=== PATIENT | female | born 1935 | race Caucasian/White ===

== ENCOUNTER → 2020-06-17 17:55 | Outpatient (CLI) | payer MEDICARE, OTHER, SELFPAY | PROVIDERS: PCP Family Medicine; Referring Provider Nurse Practitioner Family; Visit Provider Nurse Practitioner Family | DX: Z20.828 Contact with and (suspected) exposure to other viral communicable diseases (principal) | CPT/HCPCS: 87635; 94799; U0003 ==

== ENCOUNTER 2021-09-25 21:11 | Emergency (ER) | payer MEDICARE, OTHER, SELFPAY ==
[2021-09-25 21:12] VITALS: BP 158/67; PULSE 96; RESP 14; TEMP 35.1; O2SAT 100; BMI 22.4
[2021-09-25] MEDS: Ondansetron 4 MG/2 ML Vial IV (22:04)
[2021-09-25] MEDS: 0.9% Normal Saline 1,000 ML 1000 ML IV (22:04)
[2021-09-25 22:16] LABS: Absolute Lymphocyte Count 1.36 X10^3/uL (0.83-4.51); Absolute Neutrophil Count 6.2 X10^3/uL (2.0-7.7); Basophil# 0.03 X10^3/uL; Basophil% 0.4 % (0-1); Eosinophil# 0.07 X10^3/uL; Eosinophils% 0.9 % (0-5); Hematocrit 38.2 % (37-47); Hemoglobin 12.9 g/dL (12.0-15.0); Lymphocyte # 1.36 X10^3/ul (0.83-4.51); Lymphocyte % 16.7 % (19-41); Mean Corp Hgb Conc 33.8 g/dL (32-36); Mean Corpuscular Hgb 30.9 pg (27.0-32.0); Mean Corpuscular Volume 91.4 fL (81-99); Monocyte# 0.51 X10^3/uL; Monocyte% 6.3 % (0-10); NRBC Flagged by Analyzer 0 % (0-5); Neutrophil # 6.15 X10^3/uL (2.7-7.7); Neutrophil % 75.3 % (47-70); Platelet Count 220 K/mm3 (150-450); RBC Distribution Width CV 13.4 % (11.6-14.6); RBC Distribution Width SD 45.1 fl (35.1-43.9); Red Blood Count 4.18 M/mm3 (4.2-5.4); White Blood Count 8.2 K/mm3 (4.4-11.0)
[2021-09-25 22:29] LABS: Partial Thromboplast Time 26.6 Seconds (24.1-36.2); Prothrombin Time (Protime)PT. 12.4 SECONDS (11.7-14.9)
[2021-09-25] MEDS: proMETHazine 25 MG/ML Syringe 6.25 MG IM (22:30)
[2021-09-25 22:38] LABS: ALB/GLOB Ratio 0.9 RATIO (0.9-2.4); AST(SGOT) 24 U/L (15-37); Alanine Aminotransfer ALT/SGPT 22 U/L (13-56); Albumin, Serum 3.6 g/dL (3.2-5.0); Alkaline Phosphatase 61 U/L (45-117); Anion Gap 8 (5-15); BUN 24 mg/dL (7-18); BUN/Creat Ratio 19.8 RATIO (10-20); Calcium,Total 9.1 mg/dL (8.5-10.1); Chloride 101 mmol/L (98-107); Creatinine, Serum 1.21 mg/dL (0.55-1.02); EST Glomerular Filtration Rate 45 mL/min (>60); Est Glom Filt Rate - Afr Amer 55 mL/min (>60); Estimated Creatinine Clearance 27.86 ml/min; Globulin 4.2 g/dL (2.2-4.2); Glucose 221 mg/dL (74-106); Lipase 60 U/L (73-393); Potassium 2.8 mmol/L (3.5-5.1); Protein, Total 7.8 g/dL (6.4-8.2); Sodium Level 136 mmol/L (136-145)
[2021-09-25 22:39] LABS: Lactic Acid 1.2 mmol/L (0.4-1.9)
[2021-09-25 23:23] LABS: Mucous, Urine 0 SEEN /hpf (<or=2+); Red Blood Cells-Urine 0 SEEN /hpf (0-5); Squamous Epithelial Cells - UA 0 SEEN /hpf (5-10); White Blood Cells 0 SEEN /hpf (0-5)
[2021-09-25 23:26] LABS: Color, Urine Yellow (Yellow); Glucose, Dipstick 100 mg/dl (Normal); Ketone-Dipstick 15 mg/dl (Negative); Leukocyte Esterase-Dipstick Negative /ul (Negative); Nitrite-Dipstick Negative (Negative); Occult Blood-Urine Negative /ul (Negative); Protein-Dipstick Negative (Negative); Urine Bilirubin Dipstick Negative (Negative); Urine Clarity Clear (Clear); Urine Urobilinogen Normal (Normal)
--- NOTE | 2021-09-25 23:41 | EX.ED.DYSGE1 ---
HPI History of Present Illness Chief Complaint: Nausea/Vomiting Informant: patient and family Onset/Context/Timing Onset: Hours (2) Context: Sudden Onset Timing: Continuous Quality: Nausea, lightheadedness Location: Generalized Worsened by: Nothing Relieved by: Nothing Narrative Narrative: Patient presents with nausea and vomiting that began approximately 2 hours prior to arrival. Patient states she ate some [employer] then became nauseated. Patient states she feels lightheaded. Patient states she feels weak all over. Patient states this began rather suddenly. Patient denies any hematemesis or coffee-ground emesis. Patient admits to some diarrhea. Patient denies any melena or hematochezia. Patient denies any dysuria or hematuria. Patient states nothing makes her nausea better and nothing makes it worse. PFSH PFS Medical History Diabetes Hypertension Hypothyroidism Kidney disease Home Medications calcium carbonate 500 mg PO DAILY 10/24/16 [History Last Taken Unknown] glimepiride 0.5 mg PO DAILY 10/24/16 [History Last Taken Unknown] levothyroxine 25 mcg PO DAILY 10/24/16 [History Last Taken Unknown] losartan 50 mg PO DAILY 10/24/16 [History Last Taken Unknown] ondansetron 4 mg PO Q8H PRN PRN #10 tab 10/24/16 [Rx Last Taken Unknown] simvastatin 20 mg PO QHS 10/24/16 [History Last Taken Unknown] alendronate 70 mg PO QWEEK 09/25/21 [History Last Taken Unknown] amlodipine 5 mg PO DAILY 09/25/21 [History Last Taken Unknown] hydrochlorothiazide 12.5 mg PO/SL DAILY 09/25/21 [History Last Taken Unknown] potassium mg PO 09/25/21 [History Last Taken Unknown] metoclopramide HCl 10 mg PO 4X/DAY PRN #20 tab 09/26/21 [Rx Last Taken Unknown] promethazine [Promethegan] 25 mg RECTAL Q6H PRN PRN #6 suppos. 09/26/21 [Rx Last Taken Unknown] Allergy/AdvReac Type Severity Reaction Status Date / Time codeine AdvReac Nausea/Vom/ Verified 09/25/21 21:19 Diarrhea Social History Smoking Status: Never smoker ROS ROS ED Constitutional Constitutional ED: Denies chills or fever(s) Eyes Eyes: Denies blurry vision or change in vision ENT ENT ED: Denies rhinorrhea or sore throat Cardiovascular Cardiovascular: Denies chest pain or palpitations Respiratory/Chest Respiratory/Chest: Denies cough or dyspnea Gastrointestinal Gastrointestinal: Reports diarrhea, nausea and vomiting; Denies melena Genitourinary Genitourinary ED: Denies dysuria or hematuria Musculoskeletal Musculoskeletal: Denies back pain or neck pain Integumentary Denies abscess or rash Neurologic Neurologic: Reports weakness; Denies headache(s) Allergic/Immunologic Allergic/Immunologic ED: Denies mouth swelling or urticaria EXAM Physical Exam Const Vital Signs: 09/25/21 21:12 09/26/21 00:44 Temperature 95.2 F L Temperature Source Temporal Pulse Rate 96 82 Respiratory Rate 14 17 Blood Pressure 158/67 H 138/66 H Blood Pressure Mean 97 90 Pulse Ox 100 96 Oxygen Delivery Method Room Air Positive well nourished and well developed General Appearance ED: well developed HEENT Reports moist mucous membranes Neck supple and no JVD Resp normal respiratory effort and clear to auscultation bilaterally Cardio regular rate, regular rhythm and no murmurs GI normal to inspection, nondistended, normoactive bowel sounds Palpation: soft and tender epigastric, LLQ, RLQ, LUQ, RUQ, periumbilical and suprapubic; Negative for guarding or rebound tenderness present Extremity normal to inspection General Extremety ED: Negative for edema or tenderness General Extremity: Negative for edema Neuro oriented x3, CN's II-XII intact bilaterally and no sensory deficits noted Sensorium / Orientation: alert Motor Exam: strength 5/5 throughout Psych mental status grossly normal Skin no rashes or lesions noted MDM MDM MDM Narrative Medical decision making narrative: Patient was given IV fluids and Zofran initially. Patient states she was still nauseated. Patient was given a dose of Phenergan. CBC and comprehensive metabolic profile were obtained and were essentially within normal limits with the exception of a hypokalemia of 2.8 and a glucose of 221. PT with INR and PTT were normal. Lactate was normal. Urinalysis does not show any evidence of urinary tract infection. Patient was feeling somewhat better on reevaluation but still slightly nauseated. Because of this, I do not feel she will tolerate oral potassium. Patient was given a dose of Reglan and Benadryl. Patient was given a prescription for Phenergan suppositories and a prescription for Reglan. Patient was instructed to follow-up with her primary care physician in 2 to 3 days for reevaluation. Patient understood and was agreeable with the plan. All questions were answered. Lab Data Attestation: I reviewed the patient's lab results. Labs: Laboratory Results - last 24 hr 09/25/21 09/25/21 09/25/21 22:00 22:00 22:00 WBC 8.2 RBC 4.18 L Hgb 12.9 Hct 38.2 MCV 91.4 MCH 30.9 MCHC 33.8 RDW Std Deviation 45.1 H RDW Coeff of Po 13.4 Plt Count 220 MPV 10.0 Immature Gran % (Auto) 0.400 Neut % (Auto) 75.3 H Lymph % (Auto) 16.7 L [place] % (Auto) 6.3 Eos % (Auto) 0.9 Baso % (Auto) 0.4 Absolute Neuts (auto) 6.2 Absolute Lymphs (auto) 1.36 Nucleated RBC % 0 PT 12.4 INR 1.0 APTT 26.6 Sodium 136 Potassium 2.8 L Chloride 101 Carbon Dioxide 27.0 Anion Gap 8 BUN 24 H Creatinine 1.21 H Estim Creat Clear Calc 27.86 Est GFR (MDRD) Af Amer 55 L Est GFR (MDRD) Non-Af 45 L BUN/Creatinine Ratio 19.8 Glucose 221 H Lactic Acid Calcium 9.1 Total Bilirubin 0.50 AST 24 ALT 22 Alkaline Phosphatase 61 Total Protein 7.8 Albumin 3.6 Globulin 4.2 Albumin/Globulin Ratio 0.9 Lipase 60 L Urine Color Urine Clarity Urine pH Ur Specific [place] Urine Protein Urine Glucose (UA) Urine Ketones Urine Occult Blood Urine Nitrite Urine Bilirubin Urine Urobilinogen Ur Leukocyte Esterase Urine RBC Urine WBC Ur Squamous Epith Cells Urine Bacteria Urine Mucus 09/25/21 09/25/21 22:00 23:17 WBC RBC Hgb Hct MCV MCH MCHC RDW Std Deviation RDW Coeff of Po Plt Count MPV Immature Gran % (Auto) Neut % (Auto) Lymph % (Auto) [place] % (Auto) Eos % (Auto) Baso % (Auto) Absolute Neuts (auto) Absolute Lymphs (auto) Nucleated RBC % PT INR APTT Sodium Potassium Chloride Carbon Dioxide Anion Gap BUN Creatinine Estim Creat Clear Calc Est GFR (MDRD) Af Amer Est GFR (MDRD) Non-Af BUN/Creatinine Ratio Glucose Lactic Acid 1.2 Calcium Total Bilirubin AST ALT Alkaline Phosphatase Total Protein Albumin Globulin Albumin/Globulin Ratio Lipase Urine Color Yellow Urine Clarity Clear Urine pH 7.0 Ur Specific [place] 1.010 Urine Protein Negative Urine Glucose (UA) 100 H Urine Ketones 15 H Urine Occult Blood Negative Urine Nitrite Negative Urine Bilirubin Negative Urine Urobilinogen Normal Ur Leukocyte Esterase Negative Urine RBC 0 SEEN Urine WBC 0 SEEN Ur Squamous Epith Cells 0 SEEN Urine Bacteria RARE Urine Mucus 0 SEEN Discharge Plan Triage Chief Complaint: Nausea/Vomiting ED Provider: Jersey Otto Dx/Rx/DC Orders Clinical Impression: Nausea & vomiting Instructions: ED Vomiting (Adult) Prescriptions: New promethazine [Promethegan] 25 MG suppository 25 mg RECTAL Q6H PRN PRN (Reason: Nausea) Qty: 6 RF: 0 metoclopramide HCl [metoclopramide HCl] 10 MG tablet 10 mg PO 4X/DAY PRN (Reason: Headache) Qty: 20 RF: 0 No Action losartan 50 MG tablet 50 mg PO DAILY RF: 0 levothyroxine 25 MCG tablet 25 mcg PO DAILY RF: 0 glimepiride 1 MG tablet 0.5 mg PO DAILY RF: 0 simvastatin 20 MG tablet 20 mg PO QHS RF: 0 calcium carbonate 500 MG tablet,chewable 500 mg PO DAILY RF: 0 ondansetron 4 MG tablet 4 mg PO Q8H PRN PRN (Reason: Nausea) Qty: 10 RF: 0 alendronate 70 mg Tablet 70 mg PO QWEEK RF: 0 amlodipine 5 mg Tablet 5 mg PO DAILY RF: 0 potassium 20 mg Tablet,Chewable PO RF: 0 hydrochlorothiazide 12.5 mg PO/SL DAILY RF: 0 Primary Care Provider: Earl Obrien Referrals: Earl Obrien MD [Primary Care Provider] - 2 Days Disposition Disposition: Home, Self Care
[2021-09-25 23:55] LABS: Bacteria RARE /hpf (None Seen)
[2021-09-26 00:44] VITALS: BP 138/66; PULSE 82; RESP 17; O2SAT 96
[2021-09-26] MEDS: Metoclopramide 10 MG/2 ML Vial IV (01:27)
[2021-09-26] MEDS: DiphenhydrAMINE 50 MG/ML Syringe 25 MG IV (01:27)
== END 2021-09-26 01:44 | disposition home or self-care (01) ==
PROVIDERS: Emergency Provider Emergency Medicine; PCP Family Medicine
DX: R11.2 Nausea with vomiting, unspecified (principal); R19.7 Diarrhea, unspecified; R42 Dizziness and giddiness; E11.9 Type 2 diabetes mellitus without complications; I10 Essential (primary) hypertension; E03.9 Hypothyroidism, unspecified
CPT/HCPCS: 80053; 81001; 83605; 83690; 85025; 85610; 85730; 96361; 96372; 96374; 96375; 99285; J7030; A4216; J2405

== ENCOUNTER → 2021-10-06 13:08 | Outpatient (CLI) | payer MEDICARE, OTHER, SELFPAY ==
--- NOTE | 2021-10-06 13:20 | BI_ITS ---
MAMMOGRAPHY - BILATERAL SCREENING REASON FOR EXAM: Female, 85 years old. Routine annual screening examination. PERTINENT HISTORY: Sister with breast cancer. Grandmother with breast cancer. TECHNIQUE: Digital bilateral breast carol (3D mammographic acquisition) in the CC and MLO projections. 2-D mediolateral oblique (MLO) and craniocaudad (CC) views of both breasts were obtained. CAD: Full Field Digital Mammography with Computer Added Detection was performed. COMPARISON: Comparison is made with prior examination dated 12/11/2019. FINDINGS: Breast Composition: The breasts are almost entirely fatty. There are no dominant masses or suspicious calcifications. Stable bilateral secretory calcifications. No other significant abnormalities are identified. There has been no significant change since the prior study. BI/SCRN MAMM (CAD)W/CAROL BILAT IMPRESSION: Stable bilateral screening mammogram. Yearly follow-up mammogram recommended. (A) ASSESSMENT CATEGORY: BIRADS Category 2: Benign. A letter regarding these results will be sent to the patient by the facility within 30 days. Approximately 10% of breast cancers are not detected by mammography. A normal mammogram should not delay biopsy of a clinically suspicious abnormality. [id number] Electronically Signed: Giovanny Ritter MD at 14:18 EST , Service support ,
== END ==
PROVIDERS: PCP Family Medicine; Referring Provider Family Medicine; Visit Provider Family Medicine
DX: Z12.31 Encounter for screening mammogram for malignant neoplasm of breast (principal)
CPT/HCPCS: 77063; 77067

== ENCOUNTER → 2022-10-17 | Outpatient (CLI) | payer MEDICARE, OTHER, SELFPAY ==
--- NOTE | 2022-10-17 15:13 | BI_ITS ---
MAMMOGRAPHY - BILATERAL SCREENING REASON FOR EXAM: Female, 86 years old. Routine annual screening examination. PERTINENT HISTORY: Sister with breast cancer. Grandmother with breast cancer. TECHNIQUE: Digital bilateral breast carol (3D mammographic acquisition) in the CC and MLO projections. 2-D mediolateral oblique (MLO) and craniocaudad (CC) views of both breasts were obtained. CAD: Full Field Digital Mammography with Computer Added Detection was performed. COMPARISON: Comparison is made with prior study 10/06/2021. FINDINGS: Breast Composition: The breasts are almost entirely fatty. There are no dominant masses or suspicious calcifications. Stable bilateral secretory calcifications. No other significant abnormalities are identified. There has been no significant change since the prior study. BI/SCRN MAMM (CAD)W/CAROL BILAT IMPRESSION: Stable bilateral screening mammogram. Yearly follow-up mammogram recommended. (A) ASSESSMENT CATEGORY: BIRADS Category 2: Benign. A letter regarding these results will be sent to the patient by the facility within 30 days. Approximately 10% of breast cancers are not detected by mammography. A normal mammogram should not delay biopsy of a clinically suspicious abnormality. [id number] Electronically Signed: Giovanny Ritter MD at 8:03 EST ,
== END | disposition home or self-care (01) ==
LOC: OPBI 15:11
PROVIDERS: PCP Family Medicine; Referring Provider Family Medicine; Visit Provider Family Medicine
DX: Z12.31 Encounter for screening mammogram for malignant neoplasm of breast (principal); Z80.3 Family history of malignant neoplasm of breast
CPT/HCPCS: 77063; 77067

== ENCOUNTER → 2023-10-18 | Outpatient (CLI) | payer MEDICARE, OTHER, SELFPAY ==
--- NOTE | 2023-10-18 12:20 | BI_ITS ---
MAMMOGRAPHY - BILATERAL SCREENING REASON FOR EXAM: Female, 87 years old. Routine annual screening examination. PERTINENT HISTORY: Sister with breast cancer. Grandmother with breast cancer. TECHNIQUE: Digital bilateral breast carol (3D mammographic acquisition) in the CC and MLO projections. 2-D mediolateral oblique (MLO) and craniocaudad (CC) views of both breasts were obtained. CAD: Full Field Digital Mammography with Computer Added Detection was performed. COMPARISON: Comparison is made with prior study dated October 17, 2022 and October 06, 2021. FINDINGS: Breast Composition: The breasts are almost entirely fatty. There are no dominant masses or suspicious calcifications. Stable bilateral secretory calcifications. No other significant abnormalities are identified. There has been no significant change since the prior study. BI/SCRN MAMM (CAD)W/CAROL BILAT IMPRESSION: Stable bilateral screening mammogram. Yearly follow-up mammogram recommended. (A) ASSESSMENT CATEGORY: BIRADS Category 2: Benign. A letter regarding these results will be sent to the patient by the facility within 30 days. Approximately 10% of breast cancers are not detected by mammography. A normal mammogram should not delay biopsy of a clinically suspicious abnormality. [id number] Electronically Signed: Giovanny Ritter MD at 13:09 EST ,
== END | disposition home or self-care (01) ==
LOC: OPBI 12:19
PROVIDERS: PCP Family Medicine; Referring Provider Family Medicine; Visit Provider Family Medicine
DX: Z12.31 Encounter for screening mammogram for malignant neoplasm of breast (principal); Z80.3 Family history of malignant neoplasm of breast
CPT/HCPCS: 77063; 77067

== ENCOUNTER → 2024-10-21 | Outpatient (CLI) | payer MEDICARE, OTHER, SELFPAY ==
--- NOTE | 2024-10-21 11:47 | BI_ITS ---
MAMMOGRAPHY - BILATERAL SCREENING REASON FOR EXAM: Female, 88 years old. Routine annual screening examination. PERTINENT HISTORY: Sister with breast cancer. Grandmother with breast cancer. Prior left ultrasound-guided breast biopsy. TECHNIQUE: Digital bilateral breast carol (3D mammographic acquisition) in the CC and MLO projections. 2-D mediolateral oblique (MLO) and craniocaudad (CC) views of both breasts were obtained. CAD: Full Field Digital Mammography with Computer Added Detection was performed. COMPARISON: Comparison is made with prior study dated October 18, 2023 and October 17, 2022. FINDINGS: Breast Composition: The breasts are almost entirely fatty. There are no dominant masses or suspicious calcifications. Stable bilateral secretory calcifications. No other significant abnormalities are identified. There has been no significant change since the prior study. BI/SCRN MAMM (CAD)W/CAROL BILAT IMPRESSION: Stable bilateral screening mammogram. Yearly follow-up mammogram recommended. (A) ASSESSMENT CATEGORY: BIRADS Category 2: Benign. A letter regarding these results will be sent to the patient by the facility within 30 days. Approximately 10% of breast cancers are not detected by mammography. A normal mammogram should not delay biopsy of a clinically suspicious abnormality. [id number] Electronically Signed: Giovanny Ritter MD at 12:27 EST ,
== END | disposition home or self-care (01) ==
LOC: OPBI 11:46
PROVIDERS: PCP Family Medicine; Referring Provider Family Medicine; Visit Provider Family Medicine
DX: Z12.31 Encounter for screening mammogram for malignant neoplasm of breast (principal); Z80.3 Family history of malignant neoplasm of breast
CPT/HCPCS: 77063; 77067

== ENCOUNTER → 2025-10-27 | Outpatient (CLI) | payer MEDICARE, OTHER, SELFPAY ==
--- NOTE | 2025-10-27 13:39 | BI_ITS ---
EXAM: SCRN MAMM (CAD)W/CAROL BILAT DATE: 10/27/2025 CLINICAL HISTORY: F, Age 89 y/o , SCREENING Sister with breast cancer. Grandmother with breast cancer. TECHNIQUE: Procedure Code: [id number] Modality: MG Procedure: SCRN MAMM (CAD)W/CAROL BILAT COMPARISON: Prior exam(s) dated October 21, 2024.. FINDINGS: TISSUE DENSITY: The breasts are almost entirely fatty. Bilateral Breast Mammographic Findings: No significant masses, calcifications or other abnormalities are identified. Stable bilateral secretory calcification. No suspicious masses, areas of developing architectural distortion, or suspicious calcifications. There has been no significant interval change. BI/SCRN MAMM (CAD)W/CAROL BILAT IMPRESSION: Stable bilateral screening mammogram. OVERALL FINAL ASSESSMENT BI-RADS 2: BENIGN RECOMMENDATION: Routine annual follow-up in 1 Year Additional Recommendation none A letter with findings and recommendations will be mailed to the patient. Reading Location: [place] [id number]
--- OUTSIDE RECORDS SUMMARY | 2025-10-27 17:42 | XMS RPT_ITS | CCD ---
Author Organization [facility] Care Team Providers Care Hoist Cylinder Loader Name Role Phone Earl Romero MD Primary Care Provider Earl Romero MD Primary Care Provider Shahramagen JOURNEYMAN OPERATOR ASSISTANT.Raina CONNER Unavailable Mamadou JOURNEYMAN OPERATOR ASSISTANT.Kaya CONNER Unavailable Earl Romero Referring Unavailable Earl Romero Attending Unavailable Nick, Earl Primary Care Unavailable Suppan JOURNEYMAN OPERATOR ASSISTANT.Kaya CONNER A Unavailable 1( [phone] EARL ROMERO Primary Care Unavailable EARL ROMERO Attending Unavailable NICK, EARL Mann Referring Unavailable NICK, EARL Mann Primary Care Unavailable NICK, EARL Mann Primary Care Unavailable PODLOGARASHLEY Referring Unavailable NICK, EARL Mann Primary Care Unavailable PODLOGARASHLEY Attending Unavailable KAYA CONTE Attending Unavailable SELF Referring Unavailable NICK, EARL Mann Primary Care Unavailable NICK, EARL Mann Primary Care Unavailable NICK, EARL Mann Referring Unavailable NICK, EARL Mann Primary Care Unavailable NICK, EARL Mann Referring Unavailable NICK, EARL Mann Referring Unavailable NICK, EARL Mann Primary Care Unavailable NICK, EARL Mann Attending Unavailable NICK, EARL Mann Primary Care Unavailable NICK, EARL Mann Primary Care Unavailable AGRRETT LIZ Attending Unavailable EARL ROMERO Attending Unavailable NICK, EARL Mann Primary Care Unavailable NICK, EARL Mann Referring Unavailable NICK, EARL Mann Primary Care Unavailable NICK, EARL Mann Referring Unavailable NICK, EARL Mann Primary Care Unavailable Allergies Allergy Classification Reported Allergen(s) Allergy Type Date of Onset Reaction(s) Facility Angiotensin Converting Enzyme (WAI) Inhibitors (2 sources) quinapril Drug Allergy 1 Cough [facility] Opioid Agonists (1 source) Codeine Drug Allergy 5 [facility] Work Phone: (20 sources) Codeine; Translations: [CODEINE] Drug Allergy 5 Nausea/Vom/Diar ruth ann [facility] Work Phone: (20 sources) Lisinopril; Translations: [LISINOPRIL] Drug Allergy 1 [facility] (20 sources) quinapril; Translations: [QUINAPRIL HCL] Drug Allergy 2 [facility] (1 source) Codeine Drug Allergy 1 [facility] Repository Medications Current Medications Medication Drug Class(es) Dates Sig (Normalized) Sig (Original) alendronic acid 70 mg oral tablet (14 sources) Bisphosphonate Start: 02-03-20 End: 03-28-20 take 70 mg by mouth every week Alendronate Active 70 MG PO EVERY WEEK September 24, 2021 11:00pm Comment on above: Take 1 tablet by yusra th one time a week. Take with a full glass of water, on an empty stomach; do NOT lie down for 60minutes. amLODIPine 5 mg oral tablet (20 sources) Dihydropyridine Calcium Channel Daniela Start: 09-23-20 End: 01-09-20 take 1 tablet by mouth once daily amLODIPine (NORVASC) 5 mg tablet Indications: Hypertensive kidney disease with stage 3 chronic kidney disease, unspecified whether stage 3a or 3b CKD (HCC) Take 1 tablet by mouth once daily. 90 tablet 3 01/09/2025 Active Comment on above: Take 1 tablet by yusra th once daily. benzonatate 100 mg oral capsule (20 sources) Non-narcotic Antitussive Start: 11-07-20 23 take 1 capsule by mouth three times daily as needed benzonatate (TESSALON PERLES) 100 mg capsule Indications: URI, acute Take 1 capsule by mouth three times a day as needed. 30 capsule 11/07/2023 Active Comment on above: Take [address] [facility] three times a day as needed. calcium carbonate 1250 mg chewable tablet (2 sources) Start: 10-24-20 16 take 500 mg by mouth once daily Calcium Carbonate Active 500 MG PO DAILY October 24, 2016 12:00am cholecalciferol 0.05 mg oral capsule (20 sources) Vitamin D Start: 12-28-19 18 take 1 capsule by mouth once daily Cholecalciferol, Vitamin D3, 2,000 unit cap Take 1 capsule by mouth once daily. 30 capsule 12 12/28/2017 Active Comment on above: Take [address] [facility] once daily. doxycycline hyclate 100 mg oral tablet (1 source) Tetracycline-class Drug Start: 04-17-20 24 End: 04-27-20 24 take 1 tablet by mouth twice daily doxycycline (VIBRA-TABS) 100 mg tablet Indications: Cellulitis of skin Take 1 tablet by mouth two times a day for 10 days. 20 tablet 0 04/17/2024 04/27/2024 Active glimepiride 1 mg oral tablet (2 sources) Sulfonylurea Start: 10-24-20 16 take 0.5 mg by mouth once daily Glimepiride Active 0.5 MG PO DAILY October 24, 2016 12:00am hydroCHLOROthiazide 12.5 mg oral tablet (2 sources) Thiazide Diuretic Start: 09-25-20 21 take 12.5 mg by mouth once daily hydrochlorothiazide Active 12.5 MG SL/PO DAILY September 24, 2021 11:00pm levothyroxine sodium 0.05 mg oral tablet (20 sources) l-Thyroxine Start: 03-22-20 23 End: 04-21-20 26 take 1 tablet by mouth once daily for thyroid dysfunction levothyroxine (SYNTHROID) 50 mcg tablet Indications: Acquired hypothyroidism Take 1 tablet by mouth once daily. Take on empty stomach. For thyroid. 90 tablet 3 04/21/2025 04/21/2026 Active Start: 10-24-2016 End: 03-22-2023 take 25 ug by mouth once daily Levothyroxine Active 25 MCG PO DAILY October 24, 2016 12:00am Comment on above: Take 1 tablet by [facility] once daily. Take on empty stomach. For thyroid. losartan potassium 50 mg oral tablet (2 sources) Angiotensin 2 Receptor Daniela Start: 6 take 50 mg by mouth once daily Losartan Active 50 MG PO DAILY October 24, 2016 12:00am meclizine hydrochloride 12.5 mg oral tablet (20 sources) Antiemetic Start: 3 take 1 tablet by mouth every six hours as needed meclizine (ANTIVERT) 12.5 mg tab Take 1 tablet by mouth every 6 hours as needed (dizziness). 15 tablet 10/26/2023 Active Start: 10-25-2016 take 1 tablet by yusra th three times daily meclizine (ANTIVERT) 25 mg tab Indications: Dizziness Take 1 tablet by mouth three times daily. 30 tablet 0 10/25/2016 Active Comment on above: Take 1 tablet by yusra th three times daily. Take 1 tablet by yusra th every 6 hours as needed (dizziness). metoclopramide 10 mg oral tablet (2 sources) Dopamine-2 Receptor Antagonist Start: 09-26-20 21 take 10 mg by mouth four times daily Metoclopramide Hcl Active 10 MG PO 4 TIMES DAILY September 26, 2021 12:00am ondansetron 4 mg disintegrating oral tablet (20 sources) Serotonin-3 Receptor Antagonist Start: 03-18-20 21 take 1 tablet by mouth every six hours as needed for nausea ondansetron orally disintegrating (ZOFRAN ODT) 4 mg disintegrating tablet Indications: Viral gastroenteritis Take 1 tablet by mouth every 6 hours as needed for Nausea/Vomiting for up to 10 doses. 10 tablet 1 03/18/2021 Active Start: 10-24-2016 take 4 mg by mouth e very eight hours as needed Ondansetron Active 4 MG PO EVERY 8 HOURS NEEDED October 24, 2016 12:00am Comment on above: Take 1 tablet by yusra every 6 hours as needed for Nausea/Vomiting for up to 10 doses. perflutren lipid microspheres 1.3 mL in NaCl (PF) 0.9% 10 mL injection (DEFINITY) (8 sources) Start: End: perflutren lipid microspheres 1.3 mL in NaCl (PF) 0.9% 10 mL injection (DEFINITY) Potassium (2 sources) Start: Potassium Active MG PO September 24, 2021 11:00pm promethazine hydrochloride 25 mg rectal suppository (2 sources) Phenothiazine Start: take 25 mg rectal route every six hours as needed Promethazine (Promethegan) 25 MG suppository Active 25 MG RECTAL EVERY 6 HOURS NEEDED September 26, 2021 12:00am simvastatin 20 mg oral tablet (20 sources) HMG-CoA Reductase Inhibitor Start: End: take 1 tablet by mouth once daily at bedtime simvastatin (ZOCOR) 20 mg tablet Indications: Hyperlipidemia LDL goal Take 1 tablet by mouth daily at bedtime. 90 tablet 3 01/20/2025 Active Comment on above: Take 1 tablet by yusra th daily at bedtime. 125 ml sodium chloride 9 mg/ml prefilled syringe (8 sources) Start: End: 023 sodium chloride 0.9 % (flush) 10 mL (BD POSIFLUSH) Completed/Discontinued Medications Medication Drug Class(es) Dates Sig (Normalized) Sig (Original) microencapsulated potassium chloride 20 meq extended release oral tablet (5 sources) Start: 09-28-2023 End: 10-08-2023 potassium chloride ER (KLOR-CON) 20 mEq tablet Start: 03-30-2023 End: 09-26-2023 take 1 tablet by mouth once daily potassium chloride ER (KLOR-CON) 20 mEq tablet Indications: Hypokalemia Take 1 tablet by mouth once daily. 30 tablet 5 03/30/2023 09/26/2023 Active Comment on above: Take 1 tablet by yusra th once daily. Problems Active Problems Problem Classification Problem Date Documented Da te Episodic/Chronic Chronic kidney disease (20 sources) Chronic kidney disease stage 3; Translations: [CKD (chronic kidney disease) stage 3, GFR 30-59 ml/min] Onset: 07-15-2020 Resolved: 04-15-2024 07-15-2020 Chronic Chronic kidney disease (1 source) Chronic kidney disease; Translations: [Hypertensive kidney disease with stage 3 chronic kidney disease, unspecified whether stage 3a or 3b CKD (HCC)] Onset: 07-15-2020 Diabetes mellitus with complications (20 sources) Type 2 diabetes mellitus; Translations: [Type 2 diabetes mellitus with diabetic chronic kidney disease] Onset: 11-06-2013 06-08-2016 Chronic Diabetes mellitus without complication (1 source) Diabetes mellitus without complication; Translations: [Type 2 diabetes mellitus with stage 3a chronic kidney disease, without long-term current use of insulin (HCC)] Onset: 06-08-2016 Disorders of lipid metabolism (20 sources) Hyperlipidemia; Translations: [Hyperlipidemia, unspecified] Onset: 05-15-2016 05-15-2016 Chronic Essential hypertension (1 source) Essential hypertension; Translations: [Essential (primary) hypertension] 04-29-2024 Chronic Fluid and electrolyte disorders (1 source) Dehydration; Translations: [Dehydration] 10-08-2023 Episodic Headache; including migraine (1 source) Headache; Translations: [Headache, unspecified headache type] 10-01-2024 Episodic Headache; including migraine (1 source) Headache; including migraine; Translations: [Headache, unspecified headache type] Onset: 10-01-2024 Hypertension with complications and secondary hypertension (20 sources) Chronic kidney disease stage 3 due to hypertension; Translations: [Hypertensive chronic kidney disease with stage 1 through stage 4 chronic kidney disease, or unspecified chronic kidney disease] Onset: 11-28-2011 07-15-2020 Chronic Nonmalignant breast conditions (20 sources) Fibrocystic disease of breast; Translations: [Diffuse cystic mastopathy of unspecified breast] Onset: 09-27-2005 09-27-2005 Chronic Occlusion or stenosis of precerebral arteries (20 sources) Bilateral stenosis of carotid arteries; Translations: [Occlusion and stenosis of bilateral carotid arteries] Onset: 11-17-2021 11-17-2021 Chronic Other screening for suspected conditions (not mental disorders or infectious disease) (7 sources) Patient encounter status; Translations: [Encounter for screening mammogram for malignant neoplasm of breast] Onset: 11-24-2024 Episodic Other skin disorders (1 source) Skin finding; Translations: [Unspecified skin changes] 04-24-2025 Episodic Skin and subcutaneous tissue infections (2 sources) Cellulitis of skin; Translations: [Cellulitis, unspecified] 04-17-2024 Episodic Syncope (1 source) Syncope and collapse; Translations: [Near syncope] Onset: 09-02-2025 Episodic Thyroid disorders (20 sources) Acquired hypothyroidism; Translations: [Hypothyroidism, unspecified] Onset: 06-15-2015 06-15-2015 Chronic Unclassified (1 source) New Patient Onset: 04-24-2025 Past or Other Problems Problem Classification Problem Date Documented Da te Episodic/Chronic Conditions associated with dizziness or vertigo (2 sources) Lightheadedness; Translations: [Dizziness and giddiness] Onset: 4 10-01-2024 Episodic Nausea and vomiting (20 sources) Nausea and vomiting; Translations: [Nausea with vomiting, unspecified] Onset: 3 Resolved: 3 10-04-2021 Episodic Other and unspecified benign neoplasm (20 sources) Benign neoplasm of colon; Translations: [Benign neoplasm of colon, unspecified] Onset: 0 08-23-2010 Episodic Other and unspecified benign neoplasm (20 sources) Polyp of colon; Translations: [Polyp of colon] Onset: 7 Resolved: 3 06-27-2018 Episodic Other bone disease and musculoskeletal deformities (20 sources) Senile osteopenia; Translations: [Other specified disorders of bone density and structure, unspecified site] Onset: 7 07-05-2017 Episodic Other bone disease and musculoskeletal deformities (1 source) Other specified disorders of bone density and structure, unspecified site; Translations: [Osteopenia, senile] Onset: 3 Episodic Other connective tissue disease (20 sources) Acquired trigger finger; Translations: [Trigger finger, unspecified finger] Onset: 7 Resolved: 8 12-28-2017 Episodic Other gastrointestinal disorders (20 sources) Occult blood in stools; Translations: [Other fecal abnormalities] Onset: 7 Resolved: 8 06-27-2018 Episodic Other non-epithelial cancer of skin (20 sources) Basal cell carcinoma of face; Translations: [Basal cell carcinoma of skin of unspecified parts of face] Onset: 9 Resolved: 1 04-06-2021 Episodic Other nutritional; endocrine; and metabolic disorders (20 sources) Hypercalcemia; Translations: [Hypercalcemia] Onset: 7 Resolved: 8 12-28-2017 Chronic Residual codes; unclassified (20 sources) Family history of malignant neoplasm of gastrointestinal tract; Translations: [Family history of malignant neoplasm of digestive organs] Onset: 0 08-23-2010 Episodic Screening and history of mental health and substance abuse codes (2 sources) Encounter for screening for depression; Translations: [Encounter for screening examination for other mental health and behavioral disorders] Onset: 4 Episodic Viral infection (20 sources) Herpes simplex; Translations: [Herpesviral infection, unspecified] Onset: 7 Resolved: 5 11-23-2014 Episodic Results Test Name Value Interpretation Reference Range Facility OV 09-24-2025 CNOV Office Visit (FAMPWS ) COURTNEY JAMES ([id number]) 1935 F Date Time Provider Department 09/24/25 9:00 AM KAYA CONTE [facility] During your visit today, we recorded the following information about you: Pulse Blood pressure Weight 88/minute 120/60 54.9 kg Kaya Conte APRN.CNP 09/24/2025 9:22 AM Signed This is a 89 year old female who presents today with: No chief complaint on file. HISTORY OF PRESENT ILLNESS: Courtney James is a 89 year old female. No chief complaint on file. Follow up on headache. The patient is an 89-year-old female presenting for evaluation of a thunderclap-type headache with associated transient lightheadedness. Courtney James is an 89-year-old female presenting for evaluation of a previous episode of acute cephalalgia and near-syncope. Cephalalgia and Near-Syncope: - Acute onset of severe cephalalgia described as lightning struck the top of my head, followed by near-syncope while outside on a hot day. - Episode occurred while walking from the patio to the driveway; had been hydrating with water. - Denies previous episodes of syncope. - Persistent mild cephalalgia for several days post-episode. - Denies recurrent dizziness, lightheadedness, or unsteadiness. - MRI showed sinus thickening. - Denies dyspnea, cough, wheezing, chest pain, palpitations, or leg edema. - Denies current nausea or emesis; recalls a past episode of nausea with diarrhea, suspecting a viral etiology. - Reports occasional mild post-nasal drainage. - Lives in a dry environment; uses a humidifier. 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 Diarrhea Essential hypertension, benign 11/28/2011 Family history of malignant neoplasm of gastrointestinal tract Hyperlipidemia 10/31/2011 Hyperlipidemia LDL goal <100 05/15/2016 Osteopenia, senile 07/05/2017 Type II or unspecified type diabetes mellitus with renal manifestations, not stated as uncontrolled(250.40) 11/06/2013 250.40 PAST SURGICAL HISTORY Procedure Laterality Date COLONOSCOPY W/BIOPSY SINGLE/MULTIPLE 08/23/10 PAST 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 Take on empty stomach. For thyroid. simvastatin (ZOCOR) 20 mg tablet Take 1 tablet by mouth daily at bedtime. amLODIPine (NORVASC) 5 mg tablet Take 1 tablet by mouth once daily. blood sugar diagnostic (BLOOD GLUCOSE TEST) test strip Test blood sugar(s) 1 times daily. Dx: 250.00 , E11.22. Insulin: No benzonatate (TESSALON PERLES) 100 mg capsule Take 1 capsule by mouth three times a day as needed. meclizine (ANTIVERT) 12.5 mg tab Take 1 tablet by mouth every 6 hours as needed (dizziness). ondansetron orally disintegrating (ZOFRAN ODT) 4 mg disintegrating tablet Take 1 tablet by mouth every 6 hours as needed for Nausea/Vomiting for up to 10 doses. Lancets (COMFORT LANCETS) lancets 1 Each once daily. TEST ONCE DAILY Cholecalciferol, Vitamin D3, 2,000 unit cap Take 1 capsule by mouth once daily. No current facility-administered medications for this visit. FAMILY HISTORY Problem Relation Age of Onset Breast Cancer Mother STOMACH Heart Mother Diabetes Mother other (polycystic kidney disease) Son Hypertension Sister Ischemic Heart Disease Sister Breast Cancer Sister Heart Brother Colon Cancer Brother other (CVA) Son 58 SOCIAL HISTORY[1] REVIEW OF SYSTEMS Ears/Nose/Mouth/Throat : (+) nasal drainage Neck: (-) neck swelling Cardiovascular: (-) chest pain, (-) palpitations, (-) orthopnea, (-) leg swelling Respiratory: (-) shortness of breath, (-) cough, (-) wheezing Gastrointestinal: (-) nausea, (-) vomiting Neurological: (+) lightheadedness, (-) dizziness, (-) unsteady gait EXAM: BP 140/70 (BP Site: Left Arm, BP Position: Sitting) Pulse 88 Wt 54.9 kg (121 lb) SpO2 95% BMI 23.45 kg/m? PHYSICAL EXAM: GENERAL: NAD, alert and oriented. SKIN: Unremarkable, no rash or skin lesions. HEAD: Normocephalic. EYES: PERRLA, EOMI, conjunctiva clear. EARS: External ears normal, canals clear, TM's normal. NOSE/SINUSES: Nares normal. Septum midline. No significant drainage noted. OROPHARYNX: Lips, mucosa, and tongue normal, good dentition. No oral lesions noted. NECK: Supple, no lymphadenopathy, normal thyroid, no carotid bruits. LUNGS: Clear to auscultation bilaterally, no wheezes/rhonchi/rales. HEART: Regular rate and rhythm, no murmurs. No ectopy. EXTREMITIES: Normal, no deformities, no skin discoloration, no edema. NEURO: Awake, alert and oriented x3, cranial nerves II-XII gr (more content not included)... Normal [facility] MRI BRAIN WO/W IVCONon 09-02 MRI BRAIN WO/W IVCON * * *Final Report* * * DATE OF EXAM: Sep 02 2025 12:53PM [facility] [id number] - MRI BRAIN WO/W IVCON / PROCEDURE REASON: multiple diagnoses * * * * Physician Interpretation * * * * EXAMINATION: MRI BRAIN WO/W IVCON CLINICAL HISTORY: Headache, unspecified headache type Lightheadedness Near syncope . Dizziness, non-specific, headache, near syncope. Headache (atypical)/papilledema . TECHNIQUE: Brain MRI protocol without and with contrast, including diffusion images. MQ: [id number] Contrast: 6 mL Elucirem IV COMPARISON: 03/06/[address] RESULT: Acute change: There is no evidence of restricted diffusion to suggest an acute infarct. Hemorrhage: No evidence of acute intracranial hemorrhage. No evidence of prior parenchymal hemorrhage on the gradient echo images. Mass lesion/mass effect/enhancement: There is no evidence of an intracranial mass. No significant mass effect. No significant extra-axial fluid collection is seen. No abnormal parenchymal or leptomeningeal enhancement is noted following contrast administration. 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 Scattered patchy areas of increased T2 and FLAIR signal are present in the supratentorial white matter, which is a nonspecific finding, but most commonly on the basis of mild chronic microvascular ischemia. There is mild-moderate generalized cerebral volume loss. The brain parenchyma is normal for age (other than if additional findings described above). Ventricles: The lateral and third ventricles are mild-moderately enlarged, but the configuration suggests central white matter volume loss. Skull base: The hypothalamic and pituitary regions are grossly unremarkable, other than nonspecific near-empty sella appearance. The craniocervical junction is without gross acute findings. Vasculature: The major intracranial arterial structures, and dural venous sinuses show typical flow void, suggesting patency by spin echo criteria. Visualized paranasal sinuses: Scattered mild and mild-moderate mucosal thickening. Other: Mostly clear mastoid air cells. The visualized orbits are grossly unremarkable, other than lens replacement(s). Advertising Analyst (topogram) images: Non-diagnostic. IMPRESSION: Brain MRI shows no evidence of an acute ischemic brain infarction, acute intracranial hemorrhage, brain mass or abnormal intracranial enhancement. Chronic intracranial changes and other details above. Yard Engineer: PEDRO Transcribe Date/Time: Sep 02 2025 2:08P Dictated by : ISMA BIRMINGHAM MD This examination was interpreted and the report reviewed and electronically signed by: ISMA BIRMINGHAM MD on Sep 02 2025 2:12PM EST [id number] Normal [facility] ECHOon 08-26-2025 Echocardiography Echocardiography Report: Transthoracic Echo [facility] Date of service: 08/26/2025 12:44:11 PM AGENT Ordering physician: EARL ROMERO Exam indication: Syncope Technologist: Brandy Mckeon [facility] Interpreting physician: Joe Ortez MD PATIENT: Name: MRS. COURTNEY JAMES : 1935 Age: 89 years Gender: F History of diabetes mellitus, chronic kidney disease and dyslipidemia. Primary rhythm: sinus. Height: 153.00 cm BSA: 1.54 m Weight: 55.79 kg BMI: 23.8 kg/m Heart rate 89 bpm Blood pressure 169/64 mmHg Technically difficult exam due to body habitus and probe sensitivity. Color Doppler was utilized to interrogate the cardiac valves assessed and spectral Doppler was utilized to determine the flow velocities and pressure gradients reported in this exam. MEASUREMENTS: Value Indexed Normal Max aortic dimension 2.6 cm Ao < 3.8 Left atrial volume 43 ml (biplane A-L) 28 ml/m Reggie <= 34 LV ID (diastole) 3.8 cm (2D) 2.45 cm/m LV ID (systole) 2.4 cm (2D) 1.56 cm/m IVS, leaflet tips 1.1 cm (2D) Posterior wall thickness 0.9 cm (2D) Left ventricular mass 117 g (2D) 76 g/m LV stroke volume 35 ml (2D biplane) LV end diastolic volume 54 ml (2D biplane) 35.0 ml/m 29<=EDVi<62 LV end systolic volume 19 ml (2D biplane) 12.5 ml/m Ejection Fraction 64 % (2D biplane) EF > 54 FINDINGS: LEFT VENTRICLE The left ventricle is normal in size. Left ventricular systolic function is normal. Grade I left ventricular diastolic dysfunction. Mitral annular lateral E/e': 7.0. Mitral annular septal E/e': 7.0. Wall Motion: All scored segments are normal. RIGHT VENTRICLE The right ventricle is normal in size. Right ventricular systolic function is low normal. RV systolic tissue Doppler velocity is 8.0 cm/s. Estimated right ventricular systolic pressure is not reported due to an insufficient tricuspid regurgitation signal. Estimated right atrial pressure is 3 mmHg (although IVC not seen). LEFT ATRIUM The left atrial cavity is normal in size. RIGHT ATRIUM The right atrial cavity is normal in size (RA area = 10.9 cm ). Inferior Vena Cava: The inferior vena cava appears normal measuring 0.90 cm. MITRAL VALVE The mitral valve leaflets are structurally normal. There is mild mitral annular calcification observed posterior. There is no mitral valve regurgitation. There is mild thickening. The pressure half time is 32 msec. The peak mitral E/A ratio is 0.55. The average mitral E/e' ratio is 7.0. The mitral flow deceleration time is 110 msec. TRICUSPID VALVE The tricuspid valve leaflets are structurally normal. There is trace tricuspid valve regurgitation. AORTIC VALVE The aortic valve cusps are structurally normal. There is no aortic valve regurgitation. Tricuspid aortic valve. There is mild thickening. The peak gradient is 5 mmHg (peak velocity = 113.0 cm/s). PULMONIC VALVE The pulmonic valve cusps are structurally normal. There is trace pulmonic valve regurgitation. AORTA The visualized aorta is normal in size. Measurements - Mid ascending aorta 2.6 cm. INTERATRIAL SEPTUM There is no evidence of intracardiac shunting as detected by Doppler. PERICARDIUM There is no pericardial effusion. There is an epicardial fat pad. CONCLUSIONS: - Technically difficult exam due to body habitus and probe sensitivity. - Exam indication: Syncope - The left ventricle is normal in size. Left ventricular systolic function is normal. EF = 64 5% (2D biplane) Grade I left ventricular diastolic dysfunction. - The right ventricle is normal in size. Right ventricular systolic function is low normal. - There are no significant valvular abnormalities. - Exam was compared with the prior CC echocardiographic exam performed on 11/17/2021, no significant change. * * * Final * * * [employer] [facility] Image : [id number] [facility] (FAMP[facility] COURTNEY JAMES ([id number]) 1935 F Date Time Provider Department 08/20/25 EAR[facility] ROMERO [facility] During your visit today, we recorded the following information about you: Melony Freitas RN 08/20/2025 9:57 AM Signed Pt called in and was asking if she could hold off on taking the Metformin. She states it has been years since she has been on it. She said she has liked eating her sweets. She wanted to know if she could watch her diet and get rechecked before going back on medication. Please call and advise. SIMA John William J, MD 08/20/2025 10:05 AM Signed Ok to hold on meds. Watch diet and recheck A1c in three months Melony Freitas RN 08/20/2025 10:16 AM Signed Pt called and is notified of providers message and instructions. Pt voices understanding. Melony Freitas RN Allergies As of Date: 08/20/2025 Noted Allergy Reaction ACCUPRIL (QUINAPRIL HCL) 11/28/2011 3 - Cough CODEINE 09/26/2005 LISINOPRIL 10/31/2011 3 - Cough Date Reviewed: 08/18/2025 Reviewed by: Nikc Castelan LPN - Fully Assessed Reason for Visit: Patient Question [2724] Primary Visit Diagnosis:Type 2 diabetes mellitus with stage 3a chronic kidney disease, without long-term current use of insulin (HCC) [E11.22, N18.31] Order(s):HEMOGLOBIN A1C [HFHWL4J] Order #: [id number] FUTURE Prescriptions as of 08/20/2025 - levothyroxine (SYNTHROID) 50 mcg tablet Take 1 tablet by mouth once daily. Take on empty stomach. For thyroid. - simvastatin (ZOCOR) 20 mg tablet Take 1 tablet by mouth daily at bedtime. - amLODIPine (NORVASC) 5 mg tablet Take 1 tablet by mouth once daily. - blood sugar diagnostic (BLOOD GLUCOSE TEST) test strip Test blood sugar(s) 1 times daily. Dx: 250.00 , E11.22. Insulin: No - benzonatate (TESSALON PERLES) 100 mg capsule Take 1 capsule by mouth three times a day as needed. - meclizine (ANTIVERT) 12.5 mg tab Take 1 tablet by mouth every 6 hours as needed (dizziness). - ondansetron orally disintegrating (ZOFRAN ODT) 4 mg disintegrating tablet Take 1 tablet by mouth every 6 hours as needed for Nausea/Vomiting for up to 10 doses. - Lancets (COMFORT LANCETS) lancets 1 Each once daily. TEST ONCE DAILY - Cholecalciferol, Vitamin D3, 2,000 unit cap Take 1 capsule by mouth once daily. Problem List As Of Date 08/20/2025 Noted Resolved DIFFUS CYSTIC MASTOPATHY [N60.19] 09/27/2005 Trigger finger (acquired) [M65.30] 09/25/2007 12/28/2017 Herpes simplex without mention of complication *11/11/2007 11/23/2014 Basal cell carcinoma of face [C44.310] 10/20/2009 Benign neoplasm of colon [D12.6] 08/23/2010 Family history of malignant neoplasm of gastroi*08/23/2010 Personal history of other malignant neoplasm of*01/04/2011 04/06/2021 Hypertensive kidney disease with stage 3 chroni*11/28/2011 Type 2 diabetes mellitus with stage 3 chronic k*11/06/2013 Acquired hypothyroidism [E03.9] 06/15/2015 Hyperlipidemia LDL goal <100 [E78.5] 05/15/2016 Hypercalcemia [E83.52] 12/29/2016 12/28/2017 Osteopenia, senile [M85.80] 07/05/2017 Occult blood positive stool [R19.5] 07/11/2017 06/27/2018 Polyp of colon [K63.5] 08/14/2017 03/28/2023 Chronic kidney disease, stage 3b (HCC) [N18.32] 07/15/2020 04/15/2024 Bilateral carotid artery stenosis [I65.23] 11/17/2021 Nausea and vomiting [R11.2] 03/28/2023 03/28/2023 Medications Discontinued During This Encounter Prescriptions - metFORMIN ER (GLUCOPHAGE XR) 500 mg 24 hr tablet (Discontinued) Take 2 tablets by mouth daily with breakfast. Encounter Status:Closed by MELONY FREITAS on 08/20/25 Normal [facility] Basic metabolic 2000 panelon 08-18-2025 Anion gap [Moles/Vol] 15 mmol/L Normal 8-15 [facility] Comment on above: Order Comment: Speci men Type: BLOOD SPECIMENOrdering Facility: [facility] Address: [address] [place] [address] Performed By: #### 2 4321-2 ####[facility] LABCLIA [id number] [place] [address] [place] Calcium [Mass/Vol] 9.7 mg/dL Normal 8.5-10.2 [facility] Comment on above: Order Comment: Speci men Type: BLOOD SPECIMENOrdering Facility: [facility] Address: [address] [place] [address] Performed By: #### 2 4321-2 ####[facility] LABCLIA [id number] [place] [id number] [place] Chloride [Moles/Vol] 100 mmol/L Normal 98-107 [facility] Comment on above: Order Comment: Speci men Type: BLOOD SPECIMENOrdering Facility: [facility] Address: [address] [place] [address] Performed By: #### 2 4321-2 ####[facility] LABCLIA [id number] [place] [address] [place] CO2 [Moles/Vol] 23 mmol/L Normal 22-30 [facility] Comment on above: Order Comment: Speci men Type: BLOOD SPECIMENOrdering Facility: [facility] Address: [address] [place] [address] Performed By: #### 2 4321-2 ####[facility] LABCLIA [id number] [place] [id number] [place] Creatinine [Mass/Vol] 1.17 mg/dL High 0.58-0.96 [facility] Comment on above: Order Comment: Speci men Type: BLOOD SPECIMENOrdering Facility: [facility] Address: [address] [place] [address] Performed By: #### 2 4321-2 ####[facility] LABCLIA [id number] [place] [id number] [place] eGFRcr SerPlBld CKD-EPI 2020 45 mL/min/1.73m??? Low >=60 [facility] Comment on above: Order Comment: Speci men Type: BLOOD SPECIMENOrdering Facility: [facility] Address: [address] [place] [address] Result Comment: Rea mated Glomerular Filtration Rate (eGFR) is calculated using the 2020 CKD-EPI creatinine equation. This equation utilizes serum creatinine, sex, and age as parameters. The creatinine assay has traceable calibration to isotope dilution-mass spectrometry. Refer to KDIGO guidelines for clinical interpretation. In patients with unstable renal function, e.g. those with acute kidney injury, the eGFR may not accurately reflect actual GFR. Performed By: #### 2 4321-2 ####[facility] LABCLIA [id number] [address] [address] [place] Glucose [Mass/Vol] 194 mg/dL High 74-99 [facility] Comment on above: Order Comment: Speci victorino Type: BLOOD SPECIMENOrdering Facility: [facility] Address: [address] [place] [address] Result Comment: The [place] [employer] (ADA) provides guidance for cutoff values for fasting glucose and random glucose. The ADA defines fasting as no caloric intake for at least 8 hours. Fasting plasma glucose results between 100 to 125 mg/dL indicate increased risk for diabetes (prediabetes). Fasting plasma glucose results greater than or equal to 126 mg/dL meet the criteria for diagnosis of diabetes. In the absence of unequivocal hyperglycemia, results should be confirmed by repeat testing. In a patient with classic symptoms of hyperglycemia or hyperglycemic crisis, random plasma glucose results greater than or equal to 200 mg/dL meet the criteria for diagnosis of diabetes. Reference: Standards of Medical Care in Diabetes 2016, [place] [employer] Association. Diabetes Care. 2016.39(Suppl 1). Performed By: #### 2 4321-2 ####[facility] LABCLIA [id number] [address] [address] [place] Potassium [Moles/Vol] 4.1 mmol/L Normal 3.7-5.1 [facility] Comment on above: Order Comment: Speci men Type: BLOOD SPECIMENOrdering Facility: [facility] Address: [address] [place] [address] Performed By: #### 2 4321-2 ####[facility] LABCLIA [id number] [facility] [address] [address] [place] Sodium [Moles/Vol] 138 mmol/L Normal 136-144 [facility] Comment on above: Order Comment: Speci men Type: BLOOD SPECIMENOrdering Facility: [facility] Address: [address] [place] [address] Performed By: #### 2 4321-2 ####[facility] LABCLIA [id number] [place] [address] [place] Urea nitrogen [Mass/Vol] 25 mg/dL High 7-21 [facility] Comment on above: Order Comment: Speci men Type: BLOOD SPECIMENOrdering Facility: [facility] Address: [address] [place] [address] Performed By: #### 2 4321-2 ####[facility] LABIA [id number] [place] [address] [place] CBC W Auto Differential pane l (Bld)on 08-18-2025 Basophils (Bld) [#/Vol] 0.04 10*3/uL Normal <0.11 [facility] Comment on above: Order Comment: Speci men Type: BLOOD SPECIMENOrdering Facility: [facility] Address: [address] [place] [address] Performed By: #### 5 7021-8 ####[facility] LABIA [id number] [place] [address] [place] Basophils/100 WBC (Bld) 0.7 % Normal [facility] Comment on above: Order Comment: Speci men Type: BLOOD SPECIMENOrdering Facility: [facility] Address: [address] [place] [address] Performed By: #### 5 7021-8 ####[facility] LABIA [id number] [place] [address] [place] Differential cell count method Nom (Bld) Auto Normal [facility] Comment on above: Order Comment: Speci men Type: BLOOD SPECIMENOrdering Facility: [facility] Address: [address] [place] [address] Performed By: #### 5 7021-8 ####[facility] LABCLIA [id number] [address] [place] [address] [place] Eosinophils (Bld) [#/Vol] 0.06 10*3/uL Normal <0.46 [facility] Comment on above: Order Comment: Speci men Type: BLOOD SPECIMENOrdering Facility: [facility] Address: [address] [place] [address] Performed By: #### 5 7021-8 ####[facility] LABCLIA [id number] [facility] [address], [place] [address] [place] Eosinophils/100 WBC (Bld) 1.0 % Normal [facility] Comment on above: Order Comment: Speci men Type: BLOOD SPECIMENOrdering Facility: [facility] Address: [address] [place] [address] Performed By: #### 5 7021-8 ####[facility] LABCLIA [id number] [address], [place] [address] [place] Erythrocyte distribution width (RBC) [Ratio] 14.0 % Normal 11.5-15.0 [facility] Comment on above: Order Comment: Speci men Type: BLOOD SPECIMENOrdering Facility: [facility] Address: [address] [place] [address] Performed By: #### 5 7021-8 ####[facility] LABCLIA [id number] [address], [place] [address] [place] Hematocrit (Bld) [Volume fraction] 40.9 % Normal 36.0-46.0 [facility] Comment on above: Order Comment: Speci men Type: BLOOD SPECIMENOrdering Facility: [facility] Address: [address] [place] [address] Performed By: #### 5 7021-8 ####[facility] LABCLIA [id number] [address] [place] [address] [place] Hemoglobin (Bld) [Mass/Vol] 13.5 g/dL Normal 11.5-15.5 [facility] Comment on above: Order Comment: Speci men Type: BLOOD SPECIMENOrdering Facility: [facility] Address: [address] [place] [address] Performed By: #### 5 7021-8 ####[facility] LABCLIA [id number] [place] [id number] [place] Immature granulocytes (Bld) [#/Vol] 10*3/uL Normal <0.10 [facility] Comment on above: Order Comment: Speci men Type: BLOOD SPECIMENOrdering Facility: [facility] Address: [address] [place] [address] Performed By: #### 5 7021-8 ####[facility] LABCLIA [id number] [place] [address] [place] Immature granulocytes/100 WBC (Bld) 0.3 % Normal [facility] Comment on above: Order Comment: Speci men Type: BLOOD SPECIMENOrdering Facility: [facility] Address: [address] [place] [address] Performed By: #### 5 7021-8 ####[facility] LABCLIA [id number] [place] [address] [place] Lymphocytes (Bld) [#/Vol] 1.70 10*3/uL Normal 1.00-4.00 [facility] Comment on above: Order Comment: Speci men Type: BLOOD SPECIMENOrdering Facility: [facility] Address: [address] [place] [address] Performed By: #### 5 7021-8 ####[facility] LABCLIA [id number] [place] [address] [place] Lymphocytes/100 WBC (Bld) 28.8 % Normal [facility] Comment on above: Order Comment: Speci men Type: BLOOD SPECIMENOrdering Facility: [facility] Address: [address] [place] [address] Performed By: #### 5 7021-8 ####[facility] LABIA [id number] [place] [address] [place] MCH (RBC) [Entitic mass] 31.8 pg Normal 26.0-34.0 [facility] Comment on above: Order Comment: Speci men Type: BLOOD SPECIMENOrdering Facility: [facility] Address: [address] [place] [address] Performed By: #### 5 7021-8 ####[facility] LABIA [id number] [place] [address] [place] MCHC (RBC) [Mass/Vol] 33.0 g/dL Normal 30.5-36.0 [facility] Comment on above: Order Comment: Speci men Type: BLOOD SPECIMENOrdering Facility: [facility] Address: [address] [place] [address] Performed By: #### 5 7021-8 ####[facility] [id number] [place] [address] [place] MCV (RBC) [Entitic vol] 96.5 fL Normal 80.0-100.0 [facility] Comment on above: Order Comment: Speci men Type: BLOOD SPECIMENOrdering Facility: [facility] Address: [address] [place] [address] Performed By: #### 5 7021-8 ####[facility] LABIA [id number] [place] [address] [place] Monocytes (Bld) [#/Vol] 0.51 10*3/uL Normal <0.87 [facility] Comment on above: Order Comment: Speci men Type: BLOOD SPECIMENOrdering Facility: [facility] Address: [address] [place] [address] Performed By: #### 5 7021-8 ####[facility] [id number] [address] [place] Monocytes/100 WBC (Bld) 8.6 % Normal [facility] Comment on above: Order Comment: Speci men Type: BLOOD SPECIMENOrdering Facility: [facility] Address: [address] [place] [address] Performed By: #### 5 7021-8 ####[facility] LABCLIA [id number] [facility] [id number] [place] [address] [place] Neutrophils (Bld) [#/Vol] 3.58 10*3/uL Normal 1.45-7.50 [facility] Comment on above: Order Comment: Speci men Type: BLOOD SPECIMENOrdering Facility: [facility] Address: [address] [place] [address] Performed By: #### 5 7021-8 ####[facility] LABCLIA [id number] [place] [address] [place] Neutrophils/100 WBC (Bld) 60.6 % Normal [facility] Comment on above: Order Comment: Speci men Type: BLOOD SPECIMENOrdering Facility: [facility] Address: [address] [place] [address] Performed By: #### 5 7021-8 ####[facility] LABCLIA [id number] [place] [address] [place] Nucleated RBC (Bld) [#/Vol] 10*3/uL Normal <0.01 [facility] Comment on above: Order Comment: Speci men Type: BLOOD SPECIMENOrdering Facility: [facility] Address: [address] [place] [address] Performed By: #### 5 7021-8 ####[facility] LABCLIA [id number] [place] [id number] [place] Nucleated RBC/100 WBC (Bld) [Ratio] 0.0 /100 WBC Normal [facility] Comment on above: Order Comment: Speci men Type: BLOOD SPECIMENOrdering Facility: [facility] Address: [address] [place] [address] Performed By: #### 5 7021-8 ####[facility] LABCLIA [id number] [address] [address] [place] Platelet mean volume (Bld) [Entitic vol] 11.5 fL Normal 9.0-12.7 [facility] Comment on above: Order Comment: Speci men Type: BLOOD SPECIMENOrdering Facility: [facility] Address: [address] [place] [address] Performed By: #### 5 7021-8 ####[facility] LABCLIA [id number] [place] [id number] [place] Platelets (Bld) [#/Vol] 240 10*3/uL Normal 150-400 [facility] Comment on above: Order Comment: Speci men Type: BLOOD SPECIMENOrdering Facility: [facility] Address: [address] [place] [address] Performed By: #### 5 7021-8 ####[facility] LABIA [id number] [place] [id number] [place] RBC (Bld) [#/Vol] 4.24 10*6/uL Normal 3.90-5.20 [facility] Comment on above: Order Comment: Speci men Type: BLOOD SPECIMENOrdering Facility: [facility] Address: [address] [place] [address] Performed By: #### 5 7021-8 ####[facility] LABCLIA [id number] [address] [address] [place] WBC (Bld) [#/Vol] 5.91 10*3/uL Normal 3.70-11.00 [facility] Comment on above: Order Comment: Speci men Type: BLOOD SPECIMENOrdering Facility: [facility] Address: [address] [place] [address] Performed By: #### 5 7021-8 ####[facility] LABCLIA [id number] [address] [address] [facility] CNOVon 08-18-2025 CNOV Office Visit (FAMPWS ) COURTNEY JAMES ([id number]) 1935 F Date Time Provider Department 08/18/25 11:20 AM [facility] During your visit today, we recorded the following information about you: Pulse Blood pressure Weight 94/minute 140/62 55.8 kg Earl Romero MD 08/18/2025 12:18 PM Signed We discussed your recent episode of feeling lightheaded and near passing out: - This episode occurred on July 26 and was accompanied by a sharp sensation on the top of your head and a headache that lasted for about a week. You have not had any similar episodes since then. - Your physical exam today, including cranial nerve testing, strength, reflexes, and sensation, was normal. Your EKG showed a normal rhythm and no abnormalities. - Your blood pressure was rechecked and measured 140/62, which is stable. There were no significant changes in your carotid artery studies from the past year. To further evaluate your symptoms: - I will order an MRI of your brain with and without contrast to rule out any structural issues, such as an aneurysm. - I will order an echocardiogram (ultrasound of your heart) to assess your heart function. - I will order a 2-week heart monitor (patch) to check for any abnormal heart rhythms. This will be mailed to your home, and you can wear it during normal activities, except swimming or soaking in a hot tub. - I will order blood work, including a CBC, BMP, and A1c, to check for any underlying issues such as anemia, electrolyte imbalances, or blood sugar abnormalities. We discussed your history of similar episodes in the past: - You have had lightheaded spells and strange sensations in your head in previous years, for which we have done extensive testing, including MRIs, EKGs, and heart monitoring. These episodes were not associated with any significant findings at the time. - If you experience another episode of near passing out, please go to the emergency room immediately, as some conditions require urgent evaluation. Follow-up: - Please schedule a follow-up appointment in one month to review your test results and discuss next steps. If I am unavailable, you may see Raina or Miladis. - If you experience any new or worsening symptoms, such as chest pain, vision changes, weakness, or another near passing out episode, please seek immediate medical attention. Let us know if you have any questions or concerns. Earl Romero MD 08/18/2025 12:24 PM Signed The patient is an 89-year-old female with HTN and DM, presenting for evaluation of a near-syncopal episode associated with abrupt-onset headache. HPI Headache and Near-Syncope: - Sudden onset of severe headache and near-syncope on 07/26, described as feeling like lightning struck the top of her head. - Episode occurred after eating a dessert with potentially spoiled milk and walking a short distance to her daughter. - [place] the need to sit down immediately; laid down for the rest of the day. - Persistent headache for most of the following week. - No similar episodes since then. - Denies blurred or double vision, dizziness, tinnitus, chest pain, palpitations, numbness, or weakness. - No history of migraines; does not frequently experience headaches. - No recent changes in medication. - Concerned about the possibility of an aneurysm during the episode. Did not go to the ER and instead decided to wait until weeks later to be seen. Recurrent Lightheadedness: - History of recurrent lightheadedness, particularly upon waking in the morning. - Has been evaluated multiple times in the past, including ER visits, CT scan in 2016, MRI in 2020, echocardiograms, and cardiac monitoring. Has has descriptions of lightheadedness dating back over a decade. - Previous episodes sometimes associated with changes in head or neck position. - No episodes of actual syncope reported. - Denies any recent increase in urinary frequency or volume, or polydipsia. - No recent fever, chills, cough, nausea, vomiting, diarrhea, or abdominal pain. - No recent exposure to extreme heat or dehydration. - No recent changes in diet or fluid intake. - Negative orthostatics. MEDICATIONS: Current Outpatient Medications Medication Sig simvastatin (ZOCOR) 20 mg tablet Take 1 tablet by mouth daily at bedtime. amLODIPine (NORVASC) 5 mg tablet Take 1 tablet by mouth once daily. Cholecalciferol, Vitamin D3, 2,000 unit cap Take 1 capsule by mouth once daily. levothyroxine (SYNTHROID) 50 mcg tablet Take 1 tablet by mouth once daily. Take on empty stomach. For thyroid. blood sugar diagnostic (BLOOD GLUCOSE TEST) test strip Test blood sugar(s) 1 times daily. Dx: 250.00 , E11.22. Insulin: No benzonatate (TESSALON PERLES) 100 mg capsule Take 1 capsule by mouth three times a day as needed. meclizine (ANTIVERT) 12.5 mg tab Take 1 tablet (more content not included)... Normal [facility] ECG COMPLETEon 08-18-2025 ECG COMPLETE Ventricular Rate : 8 3 BPM Atrial Rate : 83 BPM P-R Interval : 202 ms QRS Duration : 86 ms Q-T Interval : 376 ms QTC Calculation(Bazett) : 441 ms Calculated P Leon : 62 degrees Calculated R Leon : -12 degrees Calculated T Leon : 71 degrees NORMAL SINUS RHYTHM Poor R-wave progression Confirmed by MD KESSLER QARAB ([id number]) on 08/19/2025 12:01:54 PM NAME : COURTNEY JAMES PID : [id number] : 1935 Gender : Female Race : ORD : [id number] Procedure Date : Aug 18 2025 12:08:39 Edit Date : Aug 19 2025 12:02:10 Diagnosis: NORMAL SINUS RHYTHM Poor R-wave progression Confirmed by MD KESSLER QARAB ([id number]) on 08/19/2025 12:01:54 PM Test Reason : R51.9 Headache, unspecified headache type Location : 185 : WO Overread By : MD KESSLER QARAB Edited By : MD KESSLER QARAB Referred By : , Acquired by : Shannan Chun [facility] HbA1c (Bld)on 08-18-2025 Average glucose Estimated from glycated hemoglobin (Bld) [Mass/Vol] 148 mg/dL Normal [facility] Comment on above: Order Comment: Speci men Type: BLOOD SPECIMENOrdering Facility: [facility] Address: [address] [place] [address] Result Comment: eAG: (Estimated average glucose) is a calculated value from HgbA1c and is customer retention representative of the average blood glucose level in the last 2-3 month period. Performed By: #### 5 5454-3 ####[facility] LABIA [id number] [place] [address] [place] HbA1c (Bld) [Mass fraction] 6.8 % High 4.3-5.6 [facility] Comment on above: Order Comment: Speci men Type: BLOOD SPECIMENOrdering Facility: [facility] Address: [address] [place] [address] Result Comment: Amjonathan ican Diabetes Association guidelines indicate that patients with HgbA1c in the range 5.7-6.4% are at increased risk for development of diabetes, and intervention by lifestyle modification may be beneficial. HgbA1c greater or equal to 6.5% is considered diagnostic of diabetes. 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 Courtneycarlos a James is a 89 year old female who presents for problem visit - firmness over the left labia. HPI: She has felt a firmness over the left labia for 3 weeks. No other vaginal symptoms. She noticed this change when wiping. 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 Diarrhea Essential hypertension, benign 11/28/2011 Family history of malignant neoplasm of gastrointestinal tract Hyperlipidemia 10/31/2011 Hyperlipidemia LDL goal <100 05/15/2016 Osteopenia, senile 07/05/2017 Type II or unspecified type diabetes mellitus with renal manifestations, not stated as uncontrolled(250.40) 11/06/2013 250.40 PAST SURGICAL HISTORY Procedure Laterality Date COLONOSCOPY W/BIOPSY SINGLE/MULTIPLE 08/23/10 PAST SURGICAL 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 Take on empty stomach. For thyroid. simvastatin (ZOCOR) 20 mg tablet Take 1 tablet by mouth daily at bedtime. amLODIPine (NORVASC) 5 mg tablet Take 1 tablet by mouth once daily. blood sugar diagnostic (BLOOD GLUCOSE TEST) test strip Test blood sugar(s) 1 times daily. Dx: 250.00 , E11.22. Insulin: No benzonatate (TESSALON PERLES) 100 mg capsule Take 1 capsule by mouth three times a day as needed. meclizine (ANTIVERT) 12.5 mg tab Take 1 tablet by mouth every 6 hours as needed (dizziness). ondansetron orally disintegrating (ZOFRAN ODT) 4 mg disintegrating tablet Take 1 tablet by mouth every 6 hours as needed for Nausea/Vomiting for up to 10 doses. Lancets (COMFORT LANCETS) lancets 1 Each once daily. TEST ONCE DAILY Cholecalciferol, Vitamin D3, 2,000 unit cap Take 1 capsule by mouth once daily. No current facility-administered medications for this visit. Allergies As of Date: 04/24/2025 Allergen Noted Reaction ACCUPRIL [QUINAPRIL HCL] 11/28/2011 Cough CODEINE 09/26/2005 LISINOPRIL 10/31/2011 Cough Fully Assessed 04/24/2025 REVIEW OF SYSTEMS Expanded ROS: No vaginal discharge, burning, pain, itching. Allergies and current medication updated:Yes SENSITIVE EXAM: The sensitive examination was discussed with the Patient or Patient's Authorized Electronic Integrated Systems Mechanic. As applicable, any other physician, advance practice provider, medical student, or other health professional student that will be observing or involved in the sensitive examination for educational or training purposes was discussed with the Patient or Authorized Electronic Integrated Systems Mechanic. The Patient or Authorized Electronic Integrated Systems Mechanic has agreed to proceed with the sensitive examination. (Sensitive examination includes inspection and/or palpation of the breasts, pelvis, prostate and anorectal regions). EXAM: BP 120/70 Wt 124 lb 3.2 oz (56.3kg) GENERAL: pleasant, female in no apparent distress HEENT: Normocephalic and atraumatic NECK: full range of motion CHEST: Normal inspiratory effort PELVIC: external genitalia atrophic and otherwise normal, normal Bartholin's glands, urethra, [place]'s glands, no vulvar lesions, no cervical lesions, normal appearing perineal body and perianal region NEURO: exam grossly non-focal EXTREMITIES: normal ASSESSMENT AND PLAN: Assessment AND Plan Skin change Unremarkable exam today. Reviewed vulvar care and hygiene measures. Discussed reasons to call. Garrett Liz, DO I spent 10 minutes in the visit, with more than 50% of the total teos-xq-cvdf time of the visit in counseling / coordination of care. Allergies As of Date: 04/24/2025 Noted Allergy Reaction ACC (more content not included)... Normal [facility] CNOVon 04-21-2025 CNOV Office Visit (FAMPWS ) COURTNEY JAMES ([id number]) 1935 F Date Time Provider Department 04/21/25 3:00 PM EARL ROMEROWS During your visit today, we recorded the following information about you: Pulse Blood pressure Weight Height 109/minute 128/60 56.9 kg 1.53 m Earl Romero MD 04/21/2025 3:42 PM Signed Courtney James is a 89 year old female here for a Medicare wellness visit. Medicare Health Risk Assessment General Health Very good. Exercise: Minutes/Day Not regularly but does stairs daily Exercise: Days/Week NA Alcohol: Daily Use none Alcohol: Drinks/Day no Alcohol: 6 or more drinks no Feel off balance none Concerns: Teeth/Dentures Uses dentures. Concerns: Sexual function none Troubled by feelings no Frequency: Eating healthy diet Feels her diet is healthy ADLs requiring help Does her own ADLS Safety precautions in home/vehicle yes Smoke, vape, chews tobacco no Difficulty hearing no Difficulty seeing no Current Providers Specialists: I have reviewed specialist-related care of the patient in the medical record. Current care team: Patient Care Team: Earl Romero MD as PCP - General (Family Medicine) Raina Chacon APRN.CNP as Store Assistant (Family Medicine) Kaya Conte APRN.CNP as Store Assistant (Family Medicine) Outside specialists seen: [facility], [facility]-justice professor Dr. Jara: DERM Medical/Family history review Reviewed and updated problem list, medical/surgical/famil y/social history, medications, and allergies. Opioid use review Opioid Medications (last 90 days) No data to display Anxiety/Depression screening Recommendation: no further intervention at this time Cognitive screening Mini Cog Score: 3 Cognitive screening reviewed and No further action needed (score 3-5). Functional Observation Was the patient's Timed Up AND Go test unsteady or >= 12 seconds? No Advance Care Planning Surrogate decision maker and/or advance care plan documented Measurements BP 128/60 Pulse 109 Ht 153 cm (5' 0.24) Wt 56.9 kg (125 lb 6.4 oz) SpO2 97% BMI 24.30 kg/m? Vision Screening: Follows with optometry/ophthalmolog y ADDITIONAL INFO: Annual Wellness Exam: - No regular exercise; stays active by walking around her property and gardening. - Denies alcohol consumption; occasionally drinks soda. - Reports a healthy diet. - Denies balance issues or falls. - Wears dentures; reports they are loose due to gum shrinkage. - Denies concerns with sexual functioning. - Denies feeling down, depressed, or hopeless; denies loss of interest or pleasure in activities. - Denies feeling nervous, anxious, or on edge; denies inability to control worrying. - Denies issues with hearing or vision; sees an eye doctor annually at the [facility]. - Denies issues with ears, throat, or neck. - Denies cough, wheezing, chest pain, or palpitations. - Denies edema in legs. - Denies current nausea, vomiting, or diarrhea. - Reports dry skin on feet; uses moisturizer. - Has a medical living will; daughter Sheri is in charge of healthcare decisions. Diabetes Mellitus: - Recent A1c was 6.8%. - Denies seeing a manager of learning. Hypothyroidism: - Taking levothyroxine. Skin Cancer: - History of skin cancer on the nose; underwent Mohs procedure with skin grafting. - Follows up with rooming house inspector Rickey Jara. Vertigo: - Occasional dizziness when turning from right to left side in bed; last episode approximately five months ago. ROS: Eyes: (-) visual disturbance Ears/Nose/Mouth/Throat : (+) loose dentures, (-) hearing loss Neck: (-) neck pain Cardiovascular: (-) chest pain, (-) palpitations, (-) syncope, (-) peripheral edema Respiratory: (-) cough, (-) wheezing Gastrointestinal: (-) abdominal pain, (-) nausea, (-) vomiting, (-) diarrhea Genitourinary: (+) urinary urgency Musculoskeletal: (-) falls, (-) balance difficulty Skin: (+) dry skin Neurological: (-) dizziness Psychiatric: (-) depressed mood, (-) anhedonia, (-) anxiety PE: GENERAL: NAD, alert and oriented. SKIN: Dry skin noted on feet, otherwise unremarkable, no rash or skin lesions. HEAD: Normocephalic. EYES: PERRLA, EOMI, conjunctiva clear. EARS: External ears normal, canals clear, TM's normal. NOSE/SINUSES: Nares normal. Septum midline. OROPHARYNX: Lips, mucosa, and tongue normal, good dentition. No oral lesions noted. NECK: Supple, no lymphadenopathy, normal thyroid, no carotid bruits. LUNGS: Clear to auscultation bilaterally, no wheezes/rhonchi/rales. HEART: Regular rate and rhythm, no murmurs. No ectopy. ABD: Soft, nontender. no masses. EXTREMITIES: Normal, no deformities, no skin discoloration, no edema. Bunion noted on both feet. Pulses intact, monofilament sensation intact. NEURO: Awake, alert and oriented x3, cranial nerves I (more content not included)... Normal [facility] ALBUMIN/CREATININE RATIO, UR INEon 04-17-2025 Albumin DL <= 20 mg/L (U) [Mass/Vol] mg/dL Normal [facility] Comment on above: Order Comment: Speci men Type: URINE SPECIMENOrdering Facility: [facility] Address: [address] [place] [address] Performed By: #### U ACR ####[facility] LABCLIA [id number] [place] [address] [place] Albumin/Creatinine (U) [Mass ratio] <12 Normal <30 [facility] Comment on above: Order Comment: Speci men Type: URINE SPECIMENOrdering Facility: [facility] Address: [address] [place] [address] Result Comment: Adul t Male and Female Nephrotic Criteria: <30 mg/g is considered normal to mildly increased 30-300 mg/g is considered moderately increased >300 mg/g is considered severely increased KDIGO. (2013). KDIGO 2012 Clinical Practice Guideline for the Evaluation and Management of Chronic Kidney Disease. Official Journal of the International Society of Nephrology, 3(1), 1-150. Performed By: #### U ACR ####[facility] LABCLIA [id number] [place] [address] [place] Creatinine (U) [Mass/Vol] 97.8 mg/dL Normal 20.0-300.0 [facility] Comment on above: Order Comment: Speci men Type: URINE SPECIMENOrdering Facility: [facility] Address: [address] [place] [id number] Performed By: #### U ACR ####[facility] LABCLIA [id number] [address] [address] [place] Basic metabolic 2000 panelon 04-17-2025 Anion gap [Moles/Vol] 11 mmol/L Normal 8-15 [facility] Comment on above: Order Comment: Speci men Type: BLOOD SPECIMENOrdering Facility: [facility] Address: [address] [place] [address] Performed By: #### 2 4321-2 ####[facility] LABCLIA [id number] [place] [id number] [place] Calcium [Mass/Vol] 9.5 mg/dL Normal 8.5-10.2 [facility] Comment on above: Order Comment: Speci men Type: BLOOD SPECIMENOrdering Facility: [facility] Address: [address] [place] [address] Performed By: #### 2 4321-2 ####[facility] LABCLIA [id number] [place] [id number] [place] Chloride [Moles/Vol] 99 mmol/L Normal 98-107 [facility] Comment on above: Order Comment: Speci men Type: BLOOD SPECIMENOrdering Facility: [facility] Address: [address] [place], [place] [id number] Performed By: #### 2 4321-2 ####[facility] LABCLIA [id number] [address] [address] [place] CO2 [Moles/Vol] 25 mmol/L Normal 22-30 [facility] Comment on above: Order Comment: Speci men Type: BLOOD SPECIMENOrdering Facility: [facility] Address: [address] [place], [place] [id number] Performed By: #### 2 4321-2 ####[facility] LABCLIA [id number] [address] [address] [place] Creatinine [Mass/Vol] 1.25 mg/dL High 0.58-0.96 [facility] Comment on above: Order Comment: Anjali gleason Type: BLOOD SPECIMENOrdering Facility: [facility] Address: [address] [place] [address] Performed By: #### 2 4321-2 ####[facility] LABCLIA [id number] [place] [address] [place] Creatinine and Glomerular filtration rate.predicted panel (S/P/Bld) 42 mL/min/1.73m??? Low >=60 [facility] Comment on above: Order Comment: Anjali gleason Type: BLOOD SPECIMENOrdering Facility: [facility] Address: [address] [place] [address] Result Comment: Rae mated Glomerular Filtration Rate (eGFR) is calculated using the 2020 CKD-EPI creatinine equation. This equation utilizes serum creatinine, sex, and age as parameters. The creatinine assay has traceable calibration to isotope dilution-mass spectrometry. Refer to KDIGO guidelines for clinical interpretation. In patients with unstable renal function, e.g. those with acute kidney injury, the eGFR may not accurately reflect actual GFR. Performed By: #### 2 4321-2 ####[facility] LABCLIA [id number] [place] [address] [place] Glucose [Mass/Vol] 139 mg/dL High 74-99 [facility] Comment on above: Order Comment: Anjali gleason Type: BLOOD SPECIMENOrdering Facility: [facility] Address: [address] [place] [address] Result Comment: The [place] Diabetes Association (ADA) provides guidance for cutoff values for fasting glucose and random glucose. The ADA defines fasting as no caloric intake for at least 8 hours. Fasting plasma glucose results between 100 to 125 mg/dL indicate increased risk for diabetes (prediabetes). Fasting plasma glucose results greater than or equal to 126 mg/dL meet the criteria for diagnosis of diabetes. In the absence of unequivocal hyperglycemia, results should be confirmed by repeat testing. In a patient with classic symptoms of hyperglycemia or hyperglycemic crisis, random plasma glucose results greater than or equal to 200 mg/dL meet the criteria for diagnosis of diabetes. Reference: Standards of Medical Care in Diabetes 2016, [place] Citizen Diabetes Association. Diabetes Care. 2016.39(Suppl 1). Performed By: #### 2 4321-2 ####[facility] LABCLIA [id number] [address] [address] [place] Potassium [Moles/Vol] 4.0 mmol/L Normal 3.7-5.1 [facility] Comment on above: Order Comment: Speci men Type: BLOOD SPECIMENOrdering Facility: [facility] Address: [address] [place] [address] Performed By: #### 2 4321-2 ####[facility] LABCLIA [id number] [address] [address] [place] Sodium [Moles/Vol] 135 mmol/L Low 136-144 [facility] Comment on above: Order Comment: Sarai men Type: BLOOD SPECIMENOrdering Facility: [facility] Address: [address] [place] [address] Performed By: #### 2 4321-2 ####[facility] LABCLIA [id number] [place] [id number] [place] Urea nitrogen [Mass/Vol] 24 mg/dL High 7-21 [facility] Comment on above: Order Comment: Sarai men Type: BLOOD SPECIMENOrdering Facility: [facility] Address: [address] [place] [address] Performed By: #### 2 4321-2 ####[facility] LABCLIA [id number] [address] [address] [place] HbA1c (Bld)on 04-17-2025 Average glucose Estimated from glycated hemoglobin (Bld) [Mass/Vol] 148 mg/dL Normal [facility] Comment on above: Order Comment: aSrai men Type: BLOOD SPECIMENOrdering Facility: [facility] Address: [address] [place] [address] Result Comment: eAG: (Estimated average glucose) is a calculated value from HgbA1c and is customer retention representative of the average blood glucose level in the last 2-3 month period. Performed By: #### 5 5454-3 ####[facility] LABIA [id number] [place] [id number] [place] HbA1c (Bld) [Mass fraction] 6.8 % High 4.3-5.6 [facility] Comment on above: Order Comment: Speci men Type: BLOOD SPECIMENOrdering Facility: [facility] Address: [address] [place] [address] Result Comment: Amer ican Diabetes Association guidelines indicate that patients with HgbA1c in the range 5.7-6.4% are at increased risk for development of diabetes, and intervention by lifestyle modification may be beneficial. HgbA1c greater or equal to 6.5% is considered diagnostic of diabetes. Performed By: #### 5 5454-3 ####[facility] LABIA [id number] [place] [id number] [place] US CAROTID ARTERIES FILIPE VAS LABon 12-31-2024 US CAROTID ARTERIES FILIPE VAS LAB Non-Invasive Vascular Laboratory [facility] Carotid Duplex Bilateral/Complete Date of service/time: 12/31/2024 1:10:30 PM Name: MRS. COURTNEY JAMES Date of : 1935 Age: 89 years Gender: F Clinical Indication Follow-up study on a patient with known carotid disease. TECHNIQUE -------- A carotid duplex ultrasound examination was performed, including grayscale imaging and color Doppler and spectral Doppler examination of the below mentioned arteries. FINDINGS -------- RIGHT SIDE Common carotid artery: Origin: PSV: 99 cm/s. EDV: 16 cm/s. Proximal: PSV: 82 cm/s. EDV: 11 cm/s. Mid: PSV: 77 cm/s. EDV: 15 cm/s. Distal: PSV: 74 cm/s. EDV: 13 cm/s. Internal carotid artery: Origin: PSV: 59 cm/s. EDV: 18 cm/s. Proximal: PSV: 79 cm/s. EDV: 18 cm/s. Mid: PSV: 96 cm/s. EDV: 25 cm/s. Distal: PSV: 79 cm/s. EDV: 18 cm/s. Mild homogeneous plaque at origin. ICA/CCA Ratio: 1.1 External carotid artery: Origin: PSV: 108 cm/s. EDV: 0 cm/s. Subclavian artery: Origin: PSV: 96 cm/s. EDV: 0 cm/s. Mild heterogeneous plaque at origin. Innominate artery: PSV: 124 cm/s. EDV: 0 cm/s. Vertebral artery: PSV: 49 cm/s. EDV: 10 cm/s. LEFT SIDE Common carotid artery: Proximal: PSV: 73 cm/s. EDV: 11 cm/s. Mid: PSV: 98 cm/s. EDV: 18 cm/s. Distal: PSV: 111 cm/s. EDV: 22 cm/s. Internal carotid artery: Origin: PSV: 90 cm/s. EDV: 9 cm/s. Proximal: PSV: 83 cm/s. EDV: 14 cm/s. Mid: PSV: 86 cm/s. EDV: 22 cm/s. Distal: PSV: 77 cm/s. EDV: 19 cm/s. ICA/CCA Ratio: 0.8 External carotid artery: Origin: PSV: 104 cm/s. EDV: 11 cm/s. Mild heterogeneous plaque at origin. Subclavian artery: Proximal: PSV: 118 cm/s. EDV: 0 cm/s. Vertebral artery: PSV: 74 cm/s. EDV: 17 cm/s. IMPRESSION Please note: the new carotid interpretation criteria are used as recommended by [employer] Commission. When compared with the prior study, of 08/09/2023 no significant change is noted on the right side and no significant change is noted on the left side. RIGHT SIDE Internal carotid artery: <50% stenosis consistent with mild carotid artery disease. Vertebral artery: Patent and antegrade flow noted. Subclavian artery: Plaque visualized without evidence of hemodynamically significant stenosis. LEFT SIDE Internal carotid artery: Normal study. Vertebral artery: Patent and antegrade flow noted. Subclavian artery: Patent. Technologist: Mana Walden RVT, [facility] Ordering physician: EARL ROMERO Interpreting physician: Jameson Mansfield MD, EMELI Final CC [employer] [facility] Image : [id number] See Link below for Image Normal [facility] (FESTUSWS[facility] COURTNEY JAMES ([id number]) 1935 F Date Time Provider Department 11/06/24 EARL ROMERO During your visit today, we recorded the following information about you: Tabby Foster LPN 11/06/2024 10:46 AM Signed Pt calling and she was seen recently and has decided to have an US of the carotid arteries rechecked. Please advise pt. ARON Hancock Lisa, MA 11/06/2024 11:27 AM Signed Please help patient schedule, provider placed order. Isatu Mcgrath MA November 06, 2024 11:27 AM Shelly Hein 11/06/2024 12:55 PM Signed Pt is scheduled. Allergies As of Date: 11/06/2024 Noted Allergy Reaction ACCUPRIL (QUINAPRIL HCL) 11/28/2011 3 - Cough CODEINE 09/26/2005 LISINOPRIL 10/31/2011 3 - Cough Date Reviewed: 10/17/2024 Reviewed by: Kendra Quiros MA - Fully Assessed Reason for Visit: Requesting testing [Other] Primary Visit Diagnosis:Bilateral carotid artery stenosis [I65.23] Order(s):US CAROTID ARTERIES FILIPE VAS LAB [[id number]] Order #: [id number] FUTURE Prescriptions as of 11/06/2024 - blood sugar diagnostic (BLOOD GLUCOSE TEST) test strip Test blood sugar(s) 1 times daily. Dx: 250.00 , E11.22. Insulin: No - levothyroxine (SYNTHROID) 50 mcg tablet Take 1 tablet by mouth once daily. Take on empty stomach. For thyroid. - simvastatin (ZOCOR) 20 mg tablet Take 1 tablet by mouth daily at bedtime. - benzonatate (TESSALON PERLES) 100 mg capsule Take 1 capsule by mouth three times a day as needed. - meclizine (ANTIVERT) 12.5 mg tab Take 1 tablet by mouth every 6 hours as needed (dizziness). - amLODIPine (NORVASC) 5 mg tablet Take 1 tablet by mouth once daily. - ondansetron orally disintegrating (ZOFRAN ODT) 4 mg disintegrating tablet Take 1 tablet by mouth every 6 hours as needed for Nausea/Vomiting for up to 10 doses. - Lancets (COMFORT LANCETS) lancets 1 Each once daily. TEST ONCE DAILY - Cholecalciferol, Vitamin D3, 2,000 unit cap Take 1 capsule by mouth once daily. 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 Trigger finger (acquired) [M65.30] 09/25/2007 12/28/2017 Herpes simplex without mention of complication *11/11/2007 11/23/2014 Basal cell carcinoma of face [C44.310] 10/20/2009 Benign neoplasm of colon [D12.6] 08/23/2010 Family history of malignant neoplasm of gastroi*08/23/2010 Personal history of other malignant neoplasm of*01/04/2011 04/06/2021 Hypertensive kidney disease with stage 3 chroni*11/28/2011 Type 2 diabetes mellitus with stage 3 chronic k*11/06/2013 Acquired hypothyroidism [E03.9] 06/15/2015 Hyperlipidemia LDL goal <100 [E78.5] 05/15/2016 Hypercalcemia [E83.52] 12/29/2016 12/28/2017 Osteopenia, senile [M85.80] 07/05/2017 Occult blood positive stool [R19.5] 07/11/2017 06/27/2018 Polyp of colon [K63.5] 08/14/2017 03/28/2023 Chronic kidney disease, stage 3b (HCC) [N18.32] 07/15/2020 04/15/2024 Bilateral carotid artery stenosis [I65.23] 11/17/2021 Nausea and vomiting [R11.2] 03/28/2023 03/28/2023 Encounter Status:Closed by TABBY FOSTER [facility]06/[facility] Tele[facility] (FAMPWS) COURTNEY JAMES ([id number]) 1935 F Date Time Provider Department 10/21/24 EARL ROMERO [facility] During your visit today, we recorded the following information about you: Earl Romero MD 10/21/2024 4:18 PM Signed Let her know her mammogram was ok. Isatu Mcgrath MA 10/21/2024 4:23 PM Signed Patient was made aware of the results. Patient verbalizes understanding. Isatu Mcgrath Ma Allergies As of Date: 10/21/2024 Noted Allergy Reaction ACCUPRIL (QUINAPRIL HCL) 11/28/2011 3 - Cough CODEINE 09/26/2005 LISINOPRIL 10/31/2011 3 - Cough Date Reviewed: 10/17/2024 Reviewed by: Kendra Quiros MA - Fully Assessed Reason for Visit: Results [95] Prescriptions as of 10/21/2024 - blood sugar diagnostic (BLOOD GLUCOSE TEST) test strip Test blood sugar(s) 1 times daily. Dx: 250.00 , E11.22. Insulin: No - levothyroxine (SYNTHROID) 50 mcg tablet Take 1 tablet by mouth once daily. Take on empty stomach. For thyroid. - simvastatin (ZOCOR) 20 mg tablet Take 1 tablet by mouth daily at bedtime. - benzonatate (TESSALON PERLES) 100 mg capsule Take 1 capsule by mouth three times a day as needed. - meclizine (ANTIVERT) 12.5 mg tab Take 1 tablet by mouth every 6 hours as needed (dizziness). - amLODIPine (NORVASC) 5 mg tablet Take 1 tablet by mouth once daily. - ondansetron orally disintegrating (ZOFRAN ODT) 4 mg disintegrating tablet Take 1 tablet by mouth every 6 hours as needed for Nausea/Vomiting for up to 10 doses. - Lancets (COMFORT LANCETS) lancets 1 Each once daily. TEST ONCE DAILY - Cholecalciferol, Vitamin D3, 2,000 unit cap Take 1 capsule by mouth once daily. 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 Trigger finger (acquired) [M65.30] 09/25/2007 12/28/2017 Herpes simplex without mention of complication *11/11/2007 11/23/2014 Basal cell carcinoma of face [C44.310] 10/20/2009 Benign neoplasm of colon [D12.6] 08/23/2010 Family history of malignant neoplasm of gastroi*08/23/2010 Personal history of other malignant neoplasm of*01/04/2011 04/06/2021 Hypertensive kidney disease with stage 3 chroni*11/28/2011 Type 2 diabetes mellitus with stage 3 chronic k*11/06/2013 Acquired hypothyroidism [E03.9] 06/15/2015 Hyperlipidemia LDL goal <100 [E78.5] 05/15/2016 Hypercalcemia [E83.52] 12/29/2016 12/28/2017 Osteopenia, senile [M85.80] 07/05/2017 Occult blood positive stool [R19.5] 07/11/2017 06/27/2018 Polyp of colon [K63.5] 08/14/2017 03/28/2023 Chronic kidney disease, stage 3b (HCC) [N18.32] 07/15/2020 04/15/2024 Bilateral carotid artery stenosis [I65.23] 11/17/2021 Nausea and vomiting [R11.2] 03/28/2023 03/28/2023 Encounter Status:Closed by ISATU MCGRATH on 10/21/24 Normal [facility] SCRN MAMM (CAD)W/CAROL BILATo n 10-21-2024 SCRN MAMM (CAD)W/CAROL BILAT [facility] Imaging Services [address] [place] [address] SCRN MAMM (CAD)W/CAROL BILAT MR#: [id number] Acct: [id number] Name: COURTNEY JAMES Rep #: [id number] : 1935 F 88 From: Giovanny omalley MD PCP: Dr. Earl Romero MD Status: [facility] Study: SCRN MAMM (CAD)W/CAROL BILAT Date of Exam: 02/09 Exam# [id number] Ordering Dr: Earl Romero MD [id number] MAMMOGRAPHY - BILATERAL SCREENING REASON FOR EXAM: Female, 88 years old. Routine annual screening examination. PERTINENT HISTORY: Sister with breast cancer. Grandmother with breast cancer. Prior left ultrasound-guided breast biopsy. TECHNIQUE: Digital bilateral breast carol (3D mammographic acquisition) in the CC and MLO projections. 2-D mediolateral oblique (MLO) and craniocaudad (CC) views of both breasts were obtained. CAD: Full Field Digital Mammography with Computer Added Detection was performed. COMPARISON: Comparison is made with prior study dated October 18, 2023 and October 17, 2022. FINDINGS: Breast Composition: The breasts are almost entirely fatty. There are no dominant masses or suspicious calcifications. Stable bilateral secretory calcifications. No other significant abnormalities are identified. There has been no significant change since the prior study. BI/SCRN MAMM (CAD)W/CAROL BILAT IMPRESSION: Stable bilateral screening mammogram. Yearly follow-up mammogram recommended. (A) ASSESSMENT CATEGORY: BIRADS Category 2: Benign. A letter regarding these results will be sent to the patient by the facility within 30 days. Approximately 10% of breast cancers are not detected by mammography. A normal mammogram should not delay biopsy of a clinically suspicious abnormality. [id number] Electronically Signed: Giovanny Ritter MD at 12:27 EST , CC: Dr. Earl Romero MD Yard Engineer: S[facility] Office Visit (FAMPWS ) COURTNEY JAMES ([id number]) 1935 F Date Time Provider Department 10/17/24 2:00 PM [facility] During your visit today, we recorded the following information about you: Pulse Blood pressure Weight Height 111/minute 130/66 56.7 kg 1.588 m Earl Romero MD 10/17/2024 1:59 PM Signed Patient presents with: 6 Month Exam HPI: Patient presents today for office visit for routine 6 month follow up. HLD: No myalgias Continues on Simvastatin 20 mg daily. THYROID: Continues on Levothyroxine 50 mcg daily. No energy, hair or skin changes. HTN: Continues on Amlodipine 5 mg daily. Monitors BP. Denies chest pain and shortness of breath. No headaches. Intermittent lightheadedness. Denies palpitations or syncope. No edema. DM: sugars are better. Discussed pros and cons of meds. Given her age. Saw Ashley Podlogar on 10/01/24 See notes: Patient presents with: Dizziness: Was sick about a week ago with nausea and vomiting and diarrhea. SUBJECTIVE: This is a 88 year old that is here today for Above Complaints.. A week ago had some dizziness, nausea, vomiting and diarrhea after eating some pizza and applesauce. The nausea, vomiting and diarrhea have resolved but has had some lightheadedness the last week. Some better today. Reports does have pills for motion sickness pills but she has not taken these to see if that would help. Slight headache. Denies vision changes, fevers, chills, sore throat, nasal congestion, rhinorrhea, SOB, dyspnea, chest pain, abdominal pain, constipation, slurred speech, facial drooping, extremity numbness, tingling or weakness Latest Ref Rng 10/01/2024 10/10/2024 WBC 3.70 - 11.00 k/uL 6.98 RBC 3.90 - 5.20 m/uL 4.29 Hemoglobin 11.5 - 15.5 g/dL 13.2 Hematocrit 36.0 - 46.0 % 39.3 MCV 80.0 - 100.0 fL 91.6 MCH 26.0 - 34.0 pg 30.8 MCHC 30.5 - 36.0 g/dL 33.6 RDW-CV 11.5 - 15.0 % 14.0 Platelet Count 150 - 400 k/uL 237 MPV 9.0 - 12.7 fL 10.8 Neut% % 59.1 Abs Neut (ANC) 1.45 - 7.50 k/uL 4.12 Lymph% % 29.2 Abs Lymph 1.00 - 4.00 k/uL 2.04 [place]% % 9.6 Abs [place] <0.87 k/uL 0.67 Eosin% % 1.4 Abs Eosin <0.46 k/uL 0.10 Baso% % 0.4 Abs Baso <0.11 k/uL 0.03 Immature Gran % % 0.3 IMMATURE GRANS (ABS) <0.10 k/uL <0.03 NRBC /100 WBC 0.0 Absolute nRBC <0.01 k/uL <0.01 DTYPE Auto Protein, Total 6.3 - 8.0 g/dL 7.6 Albumin 3.9 - 4.9 g/dL 4.3 Calcium 8.5 - 10.2 mg/dL 9.9 Bilirubin, Total 0.2 - 1.3 mg/dL 0.4 Alkaline Phosphatase 34 - 123 U/L 72 AST 13 - 35 U/L 25 ALT 7 - 38 U/L 18 Glucose 74 - 99 mg/dL 105 (H) BUN 7 - 21 mg/dL 21 Creatinine 0.58 - 0.96 mg/dL 1.19 (H) Sodium 136 - 144 mmol/L 136 Potassium 3.7 - 5.1 mmol/L 4.1 Chloride 98 - 107 mmol/L 100 CO2 22 - 30 mmol/L 23 Anion Gap 8 - 15 mmol/L 13 eGFR >=60 mL/min/1.73m? 45 (L) Cholesterol, Total <200 mg/dL 151 Triglyceride <150 mg/dL 128 HDL Cholesterol >39 mg/dL 65 Non HDL Cholesterol <130 mg/dL 86 Fasting Time hrs 12 VLDL Cholesterol <30 mg/dL 26 TC:HDL Ratio <5.10 2.32 LDL Cholesterol <100 mg/dL 60 LDL:HDL Ratio <2.54 0.92 Hemoglobin A1C 4.3 - 5.6 % 6.6 (H) Estimated Average Glucose mg/dL 143 TSH 0.270 - 4.200 mIU/L 1.110 Legend: (H) High (L) Low MEDICATIONS: Current Outpatient Medications Medication Sig levothyroxine (SYNTHROID) 50 mcg tablet Take 1 tablet by mouth once daily. Take on empty stomach. For thyroid. simvastatin (ZOCOR) 20 mg tablet Take 1 tablet by mouth daily at bedtime. benzonatate (TESSALON PERLES) 100 mg capsule Take 1 capsule by mouth three times a day as needed. meclizine (ANTIVERT) 12.5 mg tab Take 1 tablet by mouth every 6 hours as needed (dizziness). amLODIPine (NORVASC) 5 mg tablet Take 1 tablet by mouth once daily. blood sugar diagnostic (BLOOD GLUCOSE TEST) test strip Test blood sugar(s) 1 times daily. Dx: 250.00 , E11.22. Insulin: No ondansetron orally disintegrating (ZOFRAN ODT) 4 mg disintegrating tablet Take 1 tablet by mouth every 6 hours as needed for Nausea/Vomiting for up to 10 doses. Lancets (COMFORT LANCETS) lancets 1 Each once daily. TEST ONCE DAILY Cholecalciferol, Vitamin D3, 2,000 unit cap Take 1 capsule by mouth once daily. No current facility-administered medications for this visit. 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 Diarrhea Essential hypertension, benign 11/28/2011 Family history of malignant neoplasm of gastrointestinal tract Hyperlipidemia 10/31/2011 Hyperlipidemia LDL goal <100 05/15/2016 Osteopenia, senile 07/05/2017 Type II or unspecified type diabetes mellitus with renal manifestations, not stated as uncontrolled(250.40) 11/06/2013 250.4 (more content not included)... Normal [facility] HbA1c (Bld)on 10-10-2024 Average glucose Estimated from glycated hemoglobin (Bld) [Mass/Vol] 143 mg/dL Normal [facility] Comment on above: Order Comment: Anjali gleason Type: BLOOD SPECIMENOrdering Facility: [facility] Address: [address] [place] [address] Result Comment: eAG: (Estimated average glucose) is a calculated value from HgbA1c and is customer retention representative of the average blood glucose level in the last 2-3 month period. Performed By: #### 5 5454-3 ####[facility] LABCLIA [id number] [place] [address] [place] HbA1c (Bld) [Mass fraction] 6.6 % High 4.3-5.6 [facility] Comment on above: Order Comment: Anjali gleason Type: BLOOD SPECIMENOrdering Facility: [facility] Address: [address] [place] [address] Result Comment: Amer ican Diabetes Association guidelines indicate that patients with HgbA1c in the range 5.7-6.4% are at increased risk for development of diabetes, and intervention by lifestyle modification may be beneficial. HgbA1c greater or equal to 6.5% is considered diagnostic of diabetes. Performed By: #### 5 5454-3 ####[facility] LABCLIA [id number] [place] [address] [place] Lipid 1996 panelon 4 Cholesterol [Mass/Vol] 151 mg/dL Normal <200 [facility] Comment on above: Order Comment: Speci men Type: BLOOD SPECIMENOrdering Facility: [facility] Address: [address] [place] [address] Result Comment: <200 mg/dL, Desirable 200-239 mg/dL, Borderline high >239 mg/dL, High Performed By: #### 2 4331-1, 3016-3 ####[facility] LABCLIA [id number] [place] [address] [place] Cholesterol in HDL [Mass/Vol] 65 mg/dL Normal >39 [facility] Comment on above: Order Comment: Speci men Type: BLOOD SPECIMENOrdering Facility: [facility] Address: [address] [place] [address] Result Comment: 40-5 9 mg/dL, Acceptable >59 mg/dL, High: Negative risk factor for coronary heart disease <40 mg/dL, Low: Positive risk factor for coronary heart disease Performed By: #### 2 4331-1, 6-3 ####[facility] LABCLIA [id number] [place] [address] [place] Cholesterol in LDL [Mass/Vol] 60 mg/dL Normal <100 [facility] Comment on above: Order Comment: Speci men Type: BLOOD SPECIMENOrdering Facility: [facility] Address: [address] [place] [address] Result Comment: <100 mg/dL, Optimal 100-129 mg/dL, Near optimal/above optimal 130-159 mg/dL, Borderline high 160-189 mg/dL, High >189 mg/dL, Very high Secondary prevention optimal LDL Cholesterol levels are recommended to be < 70 mg/dL Performed By: #### 2 4331-1, 3016-3 ####[facility] LABCLIA [id number] [place] [id number] [place] Cholesterol in LDL/Cholesterol in HDL [Mass ratio] 0.92 {ratio} Normal <2.54 [facility] Comment on above: Order Comment: Speci men Type: BLOOD SPECIMENOrdering Facility: [facility] Address: [address] [place] [address] Result Comment: Holland patterson: 1. National Cholesterol Education Program ATP III Guideline At-A-Glance Quick Desk Reference: National Heart, Lung, and Blood [place]. National Institutes of Health. 2001: NIH Publication No. 01-3305. 2. An International Atherosclerosis Society position paper: global recommendations for the management of dyslipidemia: executive summary, Atherosclerosis. 2014: 232(2):410-413. Performed By: #### 2 4331-1, 3016-3 ####[facility] LABCLIA [id number] [place] [address] [place] Cholesterol in VLDL [Mass/Vol] 26 mg/dL Normal <30 [facility] Comment on above: Order Comment: Sarai men Type: BLOOD SPECIMENOrdering Facility: [facility] Address: [address] [place] [address] Performed By: #### 2 4331-1, 6-3 ####[facility] LABIA [id number] [place] [address] [place] Cholesterol non HDL [Mass/Vol] 86 mg/dL Normal <130 [facility] Comment on above: Order Comment: Anjali gleason Type: BLOOD SPECIMENOrdering Facility: [facility] Address: [address] [place] [address] Result Comment: <130 mg/dL, Optimal 130-159 mg/dL, Near optimal/above optimal 160-189 mg/dL, Borderline high 190-219 mg/dL, High >219 mg/dL, Very high Secondary prevention optimal non HDL Cholesterol levels are recommended to be <100 mg/dL Performed By: #### 2 4331-1, 3016-3 ####[facility] LABIA [id number] [place] [id number] [place] Cholesterol.total/Cho lesterol in HDL [Mass ratio] 2.32 {ratio} Normal <5.10 [facility] Comment on above: Order Comment: Sarai men Type: BLOOD SPECIMENOrdering Facility: [facility] Address: [address] [place] [address] Performed By: #### 2 4331-1, 3015-3 ####[facility] LABCLIA [id number] [place] [address] [place] FASTING TIME 12 hrs Normal [facility] Comment on above: Order Comment: Speci men Type: BLOOD SPECIMENOrdering Facility: [facility] Address: [address] [place] [address] Performed By: #### 2 4331-1, 3015-3 ####[facility] LABCLIA [id number] [place] [address] [place] Triglyceride [Mass/Vol] 128 mg/dL Normal <150 [facility] Comment on above: Order Comment: Speci men Type: BLOOD SPECIMENOrdering Facility: [facility] Address: [address] [place] [address] Result Comment: <150 mg/dL, Normal 150-199 mg/dL, Borderline high 200-499 mg/dL, High >499 mg/dL, Very high Performed By: #### 2 4331-1, 3015-3 ####[facility] LABIA [id number] [place] [address] [place] TSH SerPl-aCncon 10-10-2024 TSH Qn 1.110 m[IU]/L Normal 0.270-4.200 [facility] Comment on above: Order Comment: Speci men Type: BLOOD SPECIMENOrdering Facility: [facility] Address: [address] [place] [address] Performed By: #### 2 4331-1, 3015-3 ####[facility] LABIA [id number] [place] [address] [place] CNPRuba 10-06-2024 CNPN Telephone (FAMPWS) COURTNEY JAMES ([id number]) 1935 F Date Time Provider Department 10/06/24 EARL ROMERO During your visit today, we recorded the following information about you: Lauren Smith LPN 10/06/2024 11:24 AM Signed Patient calling asking for an order to have yearly mamm, last done 10/18/2023. Patient wants to have done at [facility]. Pending order to file. Please notify patient when the order is faxed so she can schedule her appt. Please advise Earl Romero MD 10/06/2024 11:30 AM Signed ordered Nick Castelan LPN 10/06/2024 1:47 PM Signed Faxed as requested. Nick Castelan LPN 10/06/2024 6:09 PM Signed Patient notified. Allergies As of Date: 10/06/2024 Noted Allergy Reaction ACCUPRIL (QUINAPRIL HCL) 11/28/2011 3 - Cough CODEINE 09/26/2005 LISINOPRIL 10/31/2011 3 - Cough Date Reviewed: 10/01/2024 Reviewed by: Angi Garcia LPN - Fully Assessed Reason for Visit: Orders [681] Primary Visit Diagnosis:Screening mammogram for breast cancer [Z12.31] Order(s):[facility] SCREENING W CAROL [[id number]] Order #: [id number] FUTURE Prescriptions as of 10/06/2024 - levothyroxine (SYNTHROID) 50 mcg tablet Take 1 tablet by mouth once daily. Take on empty stomach. For thyroid. - simvastatin (ZOCOR) 20 mg tablet Take 1 tablet by mouth daily at bedtime. - benzonatate (TESSALON PERLES) 100 mg capsule Take 1 capsule by mouth three times a day as needed. - meclizine (ANTIVERT) 12.5 mg tab Take 1 tablet by mouth every 6 hours as needed (dizziness). - amLODIPine (NORVASC) 5 mg tablet Take 1 tablet by mouth once daily. - blood sugar diagnostic (BLOOD GLUCOSE TEST) test strip Test blood sugar(s) 1 times daily. Dx: 250.00 , E11.22. Insulin: No - ondansetron orally disintegrating (ZOFRAN ODT) 4 mg disintegrating tablet Take 1 tablet by mouth every 6 hours as needed for Nausea/Vomiting for up to 10 doses. - Lancets (COMFORT LANCETS) lancets 1 Each once daily. TEST ONCE DAILY - Cholecalciferol, Vitamin D3, 2,000 unit cap Take 1 capsule by mouth once daily. 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 of complication *11/11/2007 11/23/2014 Basal cell carcinoma of face [C44.310] 10/20/2009 Benign neoplasm of colon [D12.6] 08/23/2010 Family history of malignant neoplasm of gastroi*08/23/2010 Personal history of other malignant neoplasm of*01/04/2011 04/06/2021 Hypertensive kidney disease with stage 3 chroni*11/28/2011 Type 2 diabetes mellitus with stage 3 chronic k*11/06/2013 Acquired hypothyroidism [E03.9] 06/15/2015 Hyperlipidemia LDL goal <100 [E78.5] 05/15/2016 Hypercalcemia [E83.52] 12/29/2016 12/28/2017 Osteopenia, senile [M85.80] 07/05/2017 Occult blood positive stool [R19.5] 07/11/2017 06/27/2018 Polyp of colon [K63.5] 08/14/2017 03/28/2023 Chronic kidney disease, stage 3b (HCC) [N18.32] 07/15/2020 04/15/2024 Bilateral carotid artery stenosis [I65.23] 11/17/2021 Nausea and vomiting [R11.2] 03/28/2023 03/28/2023 Encounter Status:Closed by NICK CASTELAN on 10/06/24 [facility] W Auto Differential pane l (Bld)on 10-01-2024 Basophils (Bld) [#/Vol] 0.03 10*3/uL NINF [facility] Basophils/100 WBC (Bld) 0.4 % [facility] Differential cell count method Nom (Bld) Auto [facility] Eosinophils (Bld) [#/Vol] 0.10 10*3/uL [facility] Eosinophils/100 WBC (Bld) 1.4 % [facility] Erythrocyte distribution width (RBC) [Ratio] 14.0 % 11.5 - 15.0 % [facility] Hematocrit (Bld) [Volume fraction] 39.3 % 36.0 - 46.0 % [facility] Hemoglobin (Bld) [Mass/Vol] 13.2 g/dL 11.5 - 15.5 g/dL [facility] Immature granulocytes (Bld) [#/Vol] [facility] Immature granulocytes/100 WBC (Bld) 0.3 % [facility] Lymphocytes (Bld) [#/Vol] 2.04 10*3/uL [facility] Lymphocytes/100 WBC (Bld) 29.2 % [facility] MCH (RBC) [Entitic mass] 30.8 pg 26.0 - 34.0 pg [facility] MCHC (RBC) [Mass/Vol] 33.6 g/dL 30.5 - 36.0 g/dL [facility] MCV (RBC) [Entitic vol] 91.6 fL 80.0 - 100.0 fL [facility] Monocytes (Bld) [#/Vol] 0.67 10*3/uL [facility] Monocytes/100 WBC (Bld) 9.6 % [facility] Neutrophils (Bld) [#/Vol] 4.12 10*3/uL [facility] Neutrophils/100 WBC (Bld) 59.1 % [facility] Nucleated RBC (Bld) [#/Vol] [facility] Nucleated RBC/100 WBC (Bld) [Ratio] 0.0 % /100 WBC [facility] Platelet mean volume (Bld) [Entitic vol] 10.8 fL 9.0 - 12.7 fL [facility] Platelets (Bld) [#/Vol] 237 10*3/uL [facility] RBC (Bld) [#/Vol] 4.29 10*6/uL 3.90 - 5.2 0 m/uL [facility] WBC (Bld) [#/Vol] 6.98 10*3/uL [facility] Basophils (Bld) [#/Vol] 0.03 10*3/uL Normal <0.11 [facility] Comment on above: Order Comment: Speci men Type: BLOOD SPECIMENOrdering Facility: [facility] Address: [address] [place] [address] Performed By: #### 5 7021-8 ####[facility] LABCLIA [id number] [place] [address] [place] Basophils/100 WBC (Bld) 0.4 % Normal [facility] Comment on above: Order Comment: Speci men Type: BLOOD SPECIMENOrdering Facility: [facility] Address: [address] [place] [address] Performed By: #### 5 7021-8 ####[facility] LABCLIA [id number] [place] [address] [place] Differential cell count method Nom (Bld) Auto Normal [facility] Comment on above: Order Comment: Speci men Type: BLOOD SPECIMENOrdering Facility: [facility] Address: [address] [place] [address] Performed By: #### 5 7021-8 ####[facility] LABCLIA [id number] [place] [address] [place] Eosinophils (Bld) [#/Vol] 0.10 10*3/uL Normal <0.46 [facility] Comment on above: Order Comment: Speci men Type: BLOOD SPECIMENOrdering Facility: [facility] Address: [address] [place] [address] Performed By: #### 5 7021-8 ####[facility] LABCLIA [id number] [place] [address] [place] Eosinophils/100 WBC (Bld) 1.4 % Normal [facility] Comment on above: Order Comment: Speci men Type: BLOOD SPECIMENOrdering Facility: [facility] Address: [address] [place] [address] Performed By: #### 5 7021-8 ####[facility] LABCLIA [id number] [place] [address] [place] Erythrocyte distribution width (RBC) [Ratio] 14.0 % Normal 11.5-15.0 [facility] Comment on above: Order Comment: Speci men Type: BLOOD SPECIMENOrdering Facility: [facility] Address: [address] [place] [address] Performed By: #### 5 7021-8 ####[facility] LABCLIA [id number] [place] [address] [place] Hematocrit (Bld) [Volume fraction] 39.3 % Normal 36.0-46.0 [facility] Comment on above: Order Comment: Speci men Type: BLOOD SPECIMENOrdering Facility: [facility] Address: [address] [place] [address] Performed By: #### 5 7021-8 ####[facility] LABCLIA [id number] [place] [address] [place] Hemoglobin (Bld) [Mass/Vol] 13.2 g/dL Normal 11.5-15.5 [facility] Comment on above: Order Comment: Speci men Type: BLOOD SPECIMENOrdering Facility: [facility] Address: [address] [place] [address] Performed By: #### 5 7021-8 ####[facility] LABCLIA [id number] [place] [address] [place] Immature granulocytes (Bld) [#/Vol] 10*3/uL Normal <0.10 [facility] Comment on above: Order Comment: Speci men Type: BLOOD SPECIMENOrdering Facility: [facility] Address: [address] [place] [address] Performed By: #### 5 7021-8 ####[facility] LABCLIA [id number] [place] [address] [place] Immature granulocytes/100 WBC (Bld) 0.3 % Normal [facility] Comment on above: Order Comment: Speci men Type: BLOOD SPECIMENOrdering Facility: [facility] Address: [address] [place] [address] Performed By: #### 5 7021-8 ####[facility] LABCLIA [id number] [place] [address] [place] Lymphocytes (Bld) [#/Vol] 2.04 10*3/uL Normal 1.00-4.00 [facility] Comment on above: Order Comment: Speci men Type: BLOOD SPECIMENOrdering Facility: [facility] Address: [address] [place] [address] Performed By: #### 5 7021-8 ####[facility] LABIA [id number] [place] [address] [place] Lymphocytes/100 WBC (Bld) 29.2 % Normal [facility] Comment on above: Order Comment: Speci men Type: BLOOD SPECIMENOrdering Facility: [facility] Address: [address] [place] [address] Performed By: #### 5 7021-8 ####[facility] LABCLIA [id number] [place] [address] [place] MCH (RBC) [Entitic mass] 30.8 pg Normal 26.0-34.0 [facility] Comment on above: Order Comment: Speci men Type: BLOOD SPECIMENOrdering Facility: [facility] Address: [address] [place] [address] Performed By: #### 5 7021-8 ####[facility] LABIA [id number] [place] [address] [place] MCHC (RBC) [Mass/Vol] 33.6 g/dL Normal 30.5-36.0 [facility] Comment on above: Order Comment: Speci men Type: BLOOD SPECIMENOrdering Facility: [facility] Address: [address] [place] [address] Performed By: #### 5 7021-8 ####[facility] LABCLIA [id number] [place] [address] [place] MCV (RBC) [Entitic vol] 91.6 fL Normal 80.0-100.0 [facility] Comment on above: Order Comment: Speci men Type: BLOOD SPECIMENOrdering Facility: [facility] Address: [address] [place] [address] Performed By: #### 5 7021-8 ####[facility] LABCLIA [id number] [place] [address] [place] Monocytes (Bld) [#/Vol] 0.67 10*3/uL Normal <0.87 [facility] Comment on above: Order Comment: Speci men Type: BLOOD SPECIMENOrdering Facility: [facility] Address: [address] [place] [address] Performed By: #### 5 7021-8 ####[facility] LABCLIA [id number] [place] [address] [place] Monocytes/100 WBC (Bld) 9.6 % Normal [facility] Comment on above: Order Comment: Speci men Type: BLOOD SPECIMENOrdering Facility: [facility] Address: [address] [place] [address] Performed By: #### 5 7021-8 ####[facility] LABCLIA [id number] [place] [address] [place] Neutrophils (Bld) [#/Vol] 4.12 10*3/uL Normal 1.45-7.50 [facility] Comment on above: Order Comment: Speci men Type: BLOOD SPECIMENOrdering Facility: [facility] Address: [address] [place] [address] Performed By: #### 5 7021-8 ####[facility] LABCLIA [id number] [place] [address] [place] Neutrophils/100 WBC (Bld) 59.1 % Normal [facility] Comment on above: Order Comment: Speci men Type: BLOOD SPECIMENOrdering Facility: [facility] Address: [address] [place] [address] Performed By: #### 5 7021-8 ####[facility] LABCLIA [id number] [place] [address] [place] Nucleated RBC (Bld) [#/Vol] 10*3/uL Normal <0.01 [facility] Comment on above: Order Comment: Speci men Type: BLOOD SPECIMENOrdering Facility: [facility] Address: [address] [place] [address] Performed By: #### 5 7021-8 ####[facility] LABIA [id number] [place] [address] [place] Nucleated RBC/100 WBC (Bld) [Ratio] 0.0 /100 WBC Normal [facility] Comment on above: Order Comment: Speci men Type: BLOOD SPECIMENOrdering Facility: [facility] Address: [address] [place] [address] Performed By: #### 5 7021-8 ####[facility] LABIA [id number] [place] [address] [place] Platelet mean volume (Bld) [Entitic vol] 10.8 fL Normal 9.0-12.7 [facility] Comment on above: Order Comment: Speci men Type: BLOOD SPECIMENOrdering Facility: [facility] Address: [address] [place] [address] Performed By: #### 5 7021-8 ####[facility] LABIA [id number] [place] [address] [place] Platelets (Bld) [#/Vol] 237 10*3/uL Normal 150-400 [facility] Comment on above: Order Comment: Speci men Type: BLOOD SPECIMENOrdering Facility: [facility] Address: [address] [place] [address] Performed By: #### 5 7021-8 ####[facility] LABCLIA [id number] [place] [address] [place] RBC (Bld) [#/Vol] 4.29 10*6/uL Normal 3.90-5.20 [facility] Comment on above: Order Comment: Speci men Type: BLOOD SPECIMENOrdering Facility: [facility] Address: [address] [place] [address] Performed By: #### 5 7021-8 ####[facility] LABCLIA [id number] [place] [address] [place] WBC (Bld) [#/Vol] 6.98 10*3/uL Normal 3.70-11.00 [facility] Comment on above: Order Comment: Speci men Type: BLOOD SPECIMENOrdering Facility: [facility] Address: [address] [place] [address] Performed By: #### 5 7021-8 ####[facility] LABCLIA [id number] [address] [place] Donna 10-01-2024 CNOV Office Visit (FESTUSWS ) COURTNEY JAMES ([id number]) 1935 F Date Time Provider Department 10/01/24 11:40 AM ASHLEY CHAIREZ During your visit today, we recorded the following information about you: Temperature Pulse Respiration Blood pressure 97.8 degrees 89/minute 16/minute 122/70 Weight 55.4 kg Ashley Chairez APRN.CNP 10/01/2024 2:40 PM Signed Neola 10/01/2024 Patient presents with: Dizziness: Was sick about a week ago with nausea and vomiting and diarrhea. SUBJECTIVE: This is a 88 year old that is here today for Above Complaints.. A week ago had some dizziness, nausea, vomiting and diarrhea after eating some pizza and applesauce. The nausea, vomiting and diarrhea have resolved but has had some lightheadedness the last week. Some better today. Reports does have pills for motion sickness pills but she has not taken these to see if that would help. Slight headache. Denies vision changes, fevers, chills, sore throat, nasal congestion, rhinorrhea, SOB, dyspnea, chest pain, abdominal pain, constipation, slurred speech, facial drooping, extremity numbness, tingling or weakness PAST MEDICAL HISTORY Diagnosis Date Acquired hypothyroidism 06/15/2015 Benign hypertensive heart disease without heart failure Benign neoplasm of colon Diarrhea Essential hypertension, benign 11/28/2011 Family history of malignant neoplasm of gastrointestinal tract Hyperlipidemia 10/31/2011 Hyperlipidemia LDL goal <100 05/15/2016 Osteopenia, senile 07/05/2017 Type II or unspecified type diabetes mellitus with renal manifestations, not stated as uncontrolled(250.40) 11/06/2013 250.40 ALLERGIES Accupril [Quinapril Hcl], Codeine, and Lisinopril MEDICATIONS Current Outpatient Medications Medication Sig levothyroxine (SYNTHROID) 50 mcg tablet Take 1 tablet by mouth once daily. Take on empty stomach. For thyroid. simvastatin (ZOCOR) 20 mg tablet Take 1 tablet by mouth daily at bedtime. benzonatate (TESSALON PERLES) 100 mg capsule Take 1 capsule by mouth three times a day as needed. meclizine (ANTIVERT) 12.5 mg tab Take 1 tablet by mouth every 6 hours as needed (dizziness). amLODIPine (NORVASC) 5 mg tablet Take 1 tablet by mouth once daily. blood sugar diagnostic (BLOOD GLUCOSE TEST) test strip Test blood sugar(s) 1 times daily. Dx: 250.00 , E11.22. Insulin: No ondansetron orally disintegrating (ZOFRAN ODT) 4 mg disintegrating tablet Take 1 tablet by mouth every 6 hours as needed for Nausea/Vomiting for up to 10 doses. Lancets (COMFORT LANCETS) lancets 1 Each once daily. TEST ONCE DAILY Cholecalciferol, Vitamin D3, 2,000 unit cap Take 1 capsule by mouth once daily. No current facility-administered medications for this visit. Medications and allergies reviewed by this provider. SOCIAL HISTORY Social History Tobacco Use Smoking status: Never Smokeless tobacco: Never Vaping Use Vaping status: Never Used Substance Use Topics Alcohol use: Yes Comment: rare Drug use: No REVIEW OF SYSTEMS All other reviewed and negative other than HPI. OBJECTIVE: BP 122/70 Pulse 89 Temp 36.6 ?C (97.8 ?F) Resp 16 Wt 55.4 kg (122 lb 2.2 oz) SpO2 97% BMI 21.98 kg/m? . Vital signs reviewed by this provider. APPEARANCE Well appearing, alert, in no acute distress, well-hydrated, well nourished. EYES PERRLA, conjunctiva and sclera normal. EARS External ears normal, canals clear NECK Supple, no adenopathy; thyroid symmetric, normal size, no bruits HEART RRR with normal S1 and S2, no murmurs, no gallops, no JVD appreciated LUNG clear to auscultation. No wheezes, rhonchi or rales EXTREMITIES Extremities normal, No deformities, No skin discoloration, and No edema NEURO Awake, alert and oriented x 3, Cranial nerves II-XII grossly intact, Reflexes symmetrical, Normal gait, No involuntary motions., and negative findings: mental status intact, normal gait Romberg negative, muscle tone normal, muscle strength normal, rapid alternating movements normal, finger to nose normal, sensation to light touch and pinprick normal, reflexes normal and symmetric, plantar response downgoing bilaterally SKIN Skin color, texture, turgor normal, no suspicious rashes or lesions to exposed skin Depression Screening Never done Anxiety Screening Never done Advance Directive Discussion due on 11/19/2023 Dilated Retinal Exam due on 06/13/2024 Influenza Vaccine(1) due on 07/20/2024 Covid-19 Vaccine( season) due on 07/20/2024 RSV Vaccine(1 - 1-dose 75+ series) due on 10/08/2024 HbA1C due on 10/11/2024 Urine Albumin:Creatinine Ratio due on 11/15/2024 LDL Cholesterol due on 11/15/2024 Diabetic Foot Exam due on 04/15/2025 DTaP,Tdap,Td Vaccine(2 - Td or Tdap) due on 05/29/2033 Bone Density Screening Completed Shingrix Vaccine Completed Pneumococcal Vaccine: 65+ Completed HPV Vaccine Aged (more content not included)... Normal [facility] Comprehensive metabolic 2000 panelon 10-01-2024 Albumin [Mass/Vol] 4.3 g/dL Normal 3.9-4.9 [facility] Comment on above: Order Comment: Speci men Type: BLOOD SPECIMENOrdering Facility: [facility] Address: [address] [place] [address] Performed By: #### 2 4323-8 ####[facility] LABCLIA [id number] [place] [address] [place] ALP [Catalytic activity/Vol] 72 U/L Normal 34-123 [facility] Comment on above: Order Comment: Speci men Type: BLOOD SPECIMENOrdering Facility: [facility] Address: [address] [place] [address] Performed By: #### 2 4323-8 ####[facility] LABCLIA [id number] [place] [address] [place] ALT [Catalytic activity/Vol] 18 U/L Normal 7-38 [facility] Comment on above: Order Comment: Speci men Type: BLOOD SPECIMENOrdering Facility: [facility] Address: [address] [place] [address] Performed By: #### 2 4323-8 ####[facility] LABCLIA [id number] [place] [address] [place] Anion gap [Moles/Vol] 13 mmol/L Normal 8-15 [facility] Comment on above: Order Comment: Speci men Type: BLOOD SPECIMENOrdering Facility: [facility] Address: [address] [place] [address] Performed By: #### 2 4323-8 ####[facility] LABCLIA [id number] [place] [address] [place] AST [Catalytic activity/Vol] 25 U/L Normal 13-35 [facility] Comment on above: Order Comment: Speci men Type: BLOOD SPECIMENOrdering Facility: [facility] Address: [address] [place] [address] Performed By: #### 2 4323-8 ####[facility] LABCLIA [id number] [place] [address] [place] Bilirubin [Mass/Vol] 0.4 mg/dL Normal 0.2-1.3 [facility] Comment on above: Order Comment: Speci men Type: BLOOD SPECIMENOrdering Facility: [facility] Address: [address] [place] [address] Performed By: #### 2 4323-8 ####[facility] LABCLIA [id number] [place] [address] [place] Calcium [Mass/Vol] 9.9 mg/dL Normal 8.5-10.2 [facility] Comment on above: Order Comment: Speci men Type: BLOOD SPECIMENOrdering Facility: [facility] Address: [address] [place] [address] Performed By: #### 2 4323-8 ####[facility] LABCLIA [id number] [place] [address] [place] Chloride [Moles/Vol] 100 mmol/L Normal 98-107 [facility] Comment on above: Order Comment: Speci men Type: BLOOD SPECIMENOrdering Facility: [facility] Address: [address] [place] [address] Performed By: #### 2 4323-8 ####[facility] LABCLIA [id number] [place] [address] [place] CO2 [Moles/Vol] 23 mmol/L Normal 22-30 [facility] Comment on above: Order Comment: Speci men Type: BLOOD SPECIMENOrdering Facility: [facility] Address: [address] [place] [address] Performed By: #### 2 4323-8 ####[facility] LABCLIA [id number] [place] [address] [place] Creatinine [Mass/Vol] 1.19 mg/dL High 0.58-0.96 [facility] Comment on above: Order Comment: Anjali gleason Type: BLOOD SPECIMENOrdering Facility: [facility] Address: [address] [place] [address] Performed By: #### 2 4323-8 ####[facility] LABCLIA [id number] [place] [address] [place] Creatinine and Glomerular filtration rate.predicted panel (S/P/Bld) 45 mL/min/1.73m??? Low >=60 [facility] Comment on above: Order Comment: Anjali gleason Type: BLOOD SPECIMENOrdering Facility: [facility] Address: [address] [place] [address] Result Comment: Rea mated Glomerular Filtration Rate (eGFR) is calculated using the 2020 CKD-EPI creatinine equation. This equation utilizes serum creatinine, sex, and age as parameters. The creatinine assay has traceable calibration to isotope dilution-mass spectrometry. Refer to KDIGO guidelines for clinical interpretation. In patients with unstable renal function, e.g. those with acute kidney injury, the eGFR may not accurately reflect actual GFR. Performed By: #### 2 4323-8 ####[facility] LABCLIA [id number] [place] [address] [place] Glucose [Mass/Vol] 105 mg/dL High 74-99 [facility] Comment on above: Order Comment: Anjali gleason Type: BLOOD SPECIMENOrdering Facility: [facility] Address: [address] [place] [address] Result Comment: The [place] [employer] (ADA) provides guidance for cutoff values for fasting glucose and random glucose. The ADA defines fasting as no caloric intake for at least 8 hours. Fasting plasma glucose results between 100 to 125 mg/dL indicate increased risk for diabetes (prediabetes). Fasting plasma glucose results greater than or equal to 126 mg/dL meet the criteria for diagnosis of diabetes. In the absence of unequivocal hyperglycemia, results should be confirmed by repeat testing. In a patient with classic symptoms of hyperglycemia or hyperglycemic crisis, random plasma glucose results greater than or equal to 200 mg/dL meet the criteria for diagnosis of diabetes. Reference: Standards of Medical Care in Diabetes 2016, [place] [employer]. Diabetes Care. 2016.39(Suppl 1). Performed By: #### 2 4323-8 ####[facility] LABCLIA [id number] [address] [address] [place] Potassium [Moles/Vol] 4.1 mmol/L Normal 3.7-5.1 [facility] Comment on above: Order Comment: Speci men Type: BLOOD SPECIMENOrdering Facility: [facility] Address: [address] [place] [address] Performed By: #### 2 4323-8 ####[facility] LABCLIA [id number] [place] [address] [place] Protein [Mass/Vol] 7.6 g/dL Normal 6.3-8.0 [facility] Comment on above: Order Comment: Speci men Type: BLOOD SPECIMENOrdering Facility: [facility] Address: [address] [place] [address] Performed By: #### 2 4323-8 ####[facility] LABIA [id number] [place] [address] [place] Sodium [Moles/Vol] 136 mmol/L Normal 136-144 [facility] Comment on above: Order Comment: Speci men Type: BLOOD SPECIMENOrdering Facility: [facility] Address: [address] [place] [address] Performed By: #### 2 4323-8 ####[facility] LABCLIA [id number] [place] [address] [place] Urea nitrogen [Mass/Vol] 21 mg/dL Normal 7-21 [facility] Comment on above: Order Comment: Speci men Type: BLOOD SPECIMENOrdering Facility: [facility] Address: [address] [id number] Performed By: #### 2 4323-8 ####[facility] FRANCES [id number] [address] [place] Bhanu 09-30-2024 [facility] Telephone (JUAN) COURTNEY JAMES ([id number]) 1935 F Date Time Provider Department 09/30/24 [facility] During your visit today, we recorded the following information about you: Tabby Foster LPN 09/30/2024 3:32 PM Signed Pt calls and states the following: Light headed LIGHT HEADED: Yes , but denies faint, woozy, weak upon standing VERTIGO: No SEVERITY: mild , feels slightly light headed, but walking normally ONSET: x 3 days ago AGGRAVATING FACTORS: no HEART RATE: not available CAUSE: unknown RECURRENT SYMPTOMS: Pt reports 1 week ago 09-20-24 pt had vomiting, diarrhea for several hours and then this stopped DENIES: fever, chest pain, SOB, vomiting, diarrhea, bleeding, urinating fine, drinking fluids, room spinning, does not feel faint with walking or standing Pt wondering if this has anything to do with DM. Pt's provider/team not available. Pt scheduled with a provider for 10-01-24. Tabby Foster LPN Allergies As of Date: 09/30/2024 Noted Allergy Reaction ACCUPRIL (QUINAPRIL HCL) 11/28/2011 3 - Cough CODEINE 09/26/2005 LISINOPRIL 10/31/2011 3 - Cough Date Reviewed: 04/29/2024 Reviewed by: Kaya Conte APRN.SAUSAGE COOKER - Fully Assessed Reason for Visit: Future Appointment [256] Prescriptions as of 10/09/2024 - levothyroxine (SYNTHROID) 50 mcg tablet Take 1 tablet by mouth once daily. Take on empty stomach. For thyroid. - simvastatin (ZOCOR) 20 mg tablet Take 1 tablet by mouth daily at bedtime. - benzonatate (TESSALON PERLES) 100 mg capsule Take 1 capsule by mouth three times a day as needed. - meclizine (ANTIVERT) 12.5 mg tab Take 1 tablet by mouth every 6 hours as needed (dizziness). - amLODIPine (NORVASC) 5 mg tablet Take 1 tablet by mouth once daily. - blood sugar diagnostic (BLOOD GLUCOSE TEST) test strip Test blood sugar(s) 1 times daily. Dx: 250.00 , E11.22. Insulin: No - ondansetron orally disintegrating (ZOFRAN ODT) 4 mg disintegrating tablet Take 1 tablet by mouth every 6 hours as needed for Nausea/Vomiting for up to 10 doses. - Lancets (COMFORT LANCETS) lancets 1 Each once daily. TEST ONCE DAILY - Cholecalciferol, Vitamin D3, 2,000 unit cap Take 1 capsule by mouth once daily. Problem List As Of Date 09/30/2024 Noted Resolved DIFFUS CYSTIC MASTOPATHY [N60.19] 09/27/2005 Trigger finger (acquired) [M65.30] 09/25/2007 12/28/2017 Herpes simplex without mention of complication *11/11/2007 11/23/2014 Basal cell carcinoma of face [C44.310] 10/20/2009 Benign neoplasm of colon [D12.6] 08/23/2010 Family history of malignant neoplasm of gastroi*08/23/2010 Personal history of other malignant neoplasm of*01/04/2011 04/06/2021 Hypertensive kidney disease with stage 3 chroni*11/28/2011 Type 2 diabetes mellitus with stage 3 chronic k*11/06/2013 Acquired hypothyroidism [E03.9] 06/15/2015 Hyperlipidemia LDL goal <100 [E78.5] 05/15/2016 Hypercalcemia [E83.52] 12/29/2016 12/28/2017 Osteopenia, senile [M85.80] 07/05/2017 Occult blood positive stool [R19.5] 07/11/2017 06/27/2018 Polyp of colon [K63.5] 08/14/2017 03/28/2023 Chronic kidney disease, stage 3b (HCC) [N18.32] 07/15/2020 04/15/2024 Bilateral carotid artery stenosis [I65.23] 11/17/2021 Nausea and vomiting [R11.2] 03/28/2023 03/28/2023 Encounter Status:Closed by TABBY FOSTER on 10/09/24 Normal [facility] Vital Signs Date Time Vital Sign Value Performing Clinician Sonali ferreira 04-24-2025 14:31-0400 Body mass index (BMI) [Ratio] 24.07 kg/m2 Garrett Liz MD Work Phone: [facility] 04-24-2025 14:31-0400 Body weight 56.34 kg Garrett Liz MD Work Phone: [facility] 04-24-2025 14:31-0400 Diastolic blood pressure 70 mm[Hg] Garrett Liz MD Work Phone: [facility] 04-24-2025 14:31-0400 Systolic blood pressure 120 mm[Hg] Garrett Liz MD Work Phone: [facility] 04-21-2025 14:58-0400 Body height 153 cm Earl Romero MD Work Phone: [facility] 04-21-2025 14:58-0400 Body mass index (BMI) [Ratio] 24.3 kg/m2 Earl Romero MD Work Phone: [facility] 04-21-2025 14:58-0400 Body weight 56.88 kg Earl Romero MD Work Phone: [facility] 04-21-2025 14:58-0400 Diastolic blood pressure 60 mm[Hg] Earl Romero MD Work Phone: [facility] 04-21-2025 14:58-0400 Heart rate 109 /min Earl Romero MD Work Phone: [facility] 04-21-2025 14:58-0400 SaO2% (BldA) [Mass fraction] 97 % Earl Romero MD Work Phone: [facility] 04-21-2025 14:58-0400 Systolic blood pressure 128 mm[Hg] Earl Romero MD Work Phone: [facility] 10-17-2024 13:35-0500 Body height 158.8 cm Earl Romero MD Work Phone: [facility] 10-17-2024 13:35-0500 Body mass index (BMI) [Ratio] 22.5 kg/m2 Earl Romero MD Work Phone: [facility] 10-17-2024 13:35-0500 Body weight 56.7 kg Earl Romero MD Work Phone: [facility] 10-17-2024 13:35-0500 Diastolic blood pressure 66 mm[Hg] Earl Romero MD Work Phone: [facility] 10-17-2024 13:35-0500 Heart rate 111 /min Earl Romero MD Work Phone: [facility] 10-17-2024 13:35-0500 Systolic blood pressure 130 mm[Hg] Earl Romero MD Work Phone: [facility] 10-01-2024 11:33-0500 Body mass index (BMI) [Ratio] 21.98 kg/m2 Ashley Podlogar JOURNEYMAN OPERATOR ASSISTANT.JEWELRY INSPECTOR Work Phone: [facility] 10-01-2024 11:33-0500 Body temperature 97.81 [degF] Ashley Podlogar JOURNEYMAN OPERATOR ASSISTANT.JEWELRY INSPECTOR Work Phone: [facility] 10-01-2024 11:33-0500 Body weight 55.4 kg Ashley Podlogar JOURNEYMAN OPERATOR ASSISTANT.JEWELRY INSPECTOR Work Phone: [facility] 10-01-2024 11:33-0500 Diastolic blood pressure 70 mm[Hg] Ashley Podlogar JOURNEYMAN OPERATOR ASSISTANT.JEWELRY INSPECTOR Work Phone: [facility] 10-01-2024 11:33-0500 Heart rate 89 /min Ashley Podlogar JOURNEYMAN OPERATOR ASSISTANT.JEWELRY INSPECTOR Work Phone: [facility] 10-01-2024 11:33-0500 Respiratory rate 16 /min Ashley Podlogar JOURNEYMAN OPERATOR ASSISTANT.JEWELRY INSPECTOR Work Phone: [facility] 10-01-2024 11:33-0500 SaO2% (BldA) [Mass fraction] 97 % Ashley Lorenzologprimo JOURNEYMAN OPERATOR ASSISTANT.JEWELRY INSPECTOR Work Phone: [facility] 10-01-2024 11:33-0500 Systolic blood pressure 122 mm[Hg] Ashley Podlogar JOURNEYMAN OPERATOR ASSISTANT.JEWELRY INSPECTOR Work Phone: [facility] 04-29-2024 10:49-0400 Body mass index (BMI) [Ratio] 21.42 kg/m2 Kaya Suppan JOURNEYMAN OPERATOR ASSISTANT.SAUSAGE COOKER Work Phone: [facility] 04-29-2024 10:49-0400 Body weight 53.98 kg Kaya Suppan JOURNEYMAN OPERATOR ASSISTANT.SAUSAGE COOKER Work Phone: [facility] 04-29-2024 10:49-0400 Diastolic blood pressure 66 mm[Hg] Kaya Suppan JOURNEYMAN OPERATOR ASSISTANT.SAUSAGE COOKER Work Phone: [facility] 04-29-2024 10:49-0400 Heart rate 86 /min Kaya Suppan JOURNEYMAN OPERATOR ASSISTANT.SAUSAGE COOKER Work Phone: [facility] 04-29-2024 10:49-0400 Respiratory rate 16 /min Kaya Suppan JOURNEYMAN OPERATOR ASSISTANT.SAUSAGE COOKER Work Phone: [facility] 04-29-2024 10:49-0400 SaO2% (BldA) [Mass fraction] 98 % Kaya Suppan JOURNEYMAN OPERATOR ASSISTANT.SAUSAGE COOKER Work Phone: [facility] 04-29-2024 10:49-0400 Systolic blood pressure 138 mm[Hg] Kaya Suppan JOURNEYMAN OPERATOR ASSISTANT.SAUSAGE COOKER Work Phone: [facility] 04-17-2024 14:19-0400 Body mass index (BMI) [Ratio] 21.6 kg/m2 Kaya Suppan JOURNEYMAN OPERATOR ASSISTANT.SAUSAGE COOKER Work Phone: [facility] 04-17-2024 14:19-0400 Body temperature 98.8 [degF] Kaya Suppan JOURNEYMAN OPERATOR ASSISTANT.SAUSAGE COOKER Work Phone: [facility] 04-17-2024 14:19-0400 Body weight 54.43 kg Kaya Suppan JOURNEYMAN OPERATOR ASSISTANT.SAUSAGE COOKER Work Phone: [facility] 04-17-2024 14:19-0400 Diastolic blood pressure 62 mm[Hg] Kaya Kanwalan JOURNEYMAN OPERATOR ASSISTANT.SAUSAGE COOKER Work Phone: [facility] 04-17-2024 14:19-0400 Heart rate 101 /min Kaya Suppan JOURNEYMAN OPERATOR ASSISTANT.SAUSAGE COOKER Work Phone: [facility] 04-17-2024 14:19-0400 SaO2% (BldA) [Mass fraction] 98 % Kaya Suppan JOURNEYMAN OPERATOR ASSISTANT.SAUSAGE COOKER Work Phone: [facility] 04-17-2024 14:19-0400 Systolic blood pressure 132 mm[Hg] Kaya Suppan JOURNEYMAN OPERATOR ASSISTANT.SAUSAGE COOKER Work Phone: [facility] 04-15-2024 15:23-0400 Body height 158.8 cm Earl Romero MD Work Phone: [facility] 04-15-2024 15:23-0400 Body mass index (BMI) [Ratio] 21.6 kg/m2 Earl Romero MD Work Phone: [facility] 04-15-2024 15:23-0400 Body weight 54.43 kg Earl Romero MD Work Phone: [facility] 04-15-2024 15:23-0400 Diastolic blood pressure 67 mm[Hg] Earl Romero MD Work Phone: [facility] 04-15-2024 15:23-0400 Heart rate 91 /min Earl Romero MD Work Phone: [facility] 04-15-2024 15:23-0400 Systolic blood pressure 160 mm[Hg] Earl Romero MD Work Phone: [facility] 10-08-2023 13:35-0500 Body height 158.8 cm Earl Romero MD Work Phone: [facility] 10-08-2023 13:35-0500 Body weight 52.62 kg Earl Romero MD Work Phone: [facility] 10-08-2023 13:35-0500 Diastolic blood pressure 60 mm[Hg] Earl Romero MD Work Phone: [facility] 10-08-2023 13:35-0500 Heart rate 86 /min Earl Romero MD Work Phone: [facility] 10-08-2023 13:35-0500 SaO2% (BldA) [Mass fraction] 99 % Earl Romero MD Work Phone: [facility] 10-08-2023 13:35-0500 Systolic blood pressure 126 mm[Hg] Earl Romero MD Work Phone: [facility] 03-28-2023 15:41-0400 Diastolic blood pressure 68 mm[Hg] Earl Romero MD Work Phone: [facility] 03-28-2023 15:41-0400 Systolic blood pressure 136 mm[Hg] Earl Romero MD Work Phone: [facility] 03-28-2023 15:11-0400 Body height 158.8 cm Earl Romero MD Work Phone: [facility] 03-28-2023 15:11-0400 Body weight 55.34 kg Earl Romero MD Work Phone: [facility] 03-28-2023 15:11-0400 Heart rate 91 /min Earl Romero MD Work Phone: [facility] 03-28-2023 15:11-0400 SaO2% (BldA) [Mass fraction] 96 % Earl Romero MD Work Phone: [facility] 11-06-2022 13:25-0500 Diastolic blood pressure 64 mm[Hg] Mi Nurse Work Phone: [facility] 11-06-2022 13:25-0500 Heart rate 88 /min Mi Nurse Work Phone: [facility] 11-06-2022 13:25-0500 Systolic blood pressure 133 mm[Hg] Mi Nurse Work Phone: [facility] Encounters Encounter Date Encounter Type Care Provider Facility Start: 09-24-2025 End: 09-24-2025 ambulatory KAYA CONTE Facility:[place] Start: 09-02-2025 ambulatory EARL ROMERO Facility :[place] Start: 08-26-2025 End: 08-26-2025 ambulatory EARL ROMERO Facility:[place] Start: 08-18-2025 End: 08-18-2025 ambulatory EARL Mann NICK Facility:[place] Start: 08-18-2025 End: 08-18-2025 ambulatory EARL ROMERO Facility:[place] Start: 07-29-2025 End: 07-29-2025 ambulatory Earl Romero MD Work Phone: [facility] Comment on above: Headache Start: 04-24-2025 End: 04-24-2025 Patient encounter procedure Garrett Liz MD Work Phone: OB/Gynecology Comment on above: Skin change (Primary Dx) Start: 04-24-2025 End: 04-24-2025 ambulatory EARL PAYNEO Facility:[place] Start: 04-21-2025 End: 04-21-2025 ambulatory EARL ROMERO Facility:[place] Start: 04-21-2025 End: 04-21-2025 Patient encounter procedure Earl Romero MD Work Phone: [facility] Comment on above: Medicare annual well ness visit, subsequent (Primary Dx); Hypertensive kidney disease with stage 3 chronic kidney disease, unspecified whether stage 3a or 3b CKD (HCC); Hyperlipidemia LDL goal <100; Type 2 diabetes mellitus with stage 3a chronic kidney disease, without long-term current use of insulin (HCC); Acquired hypothyroidism; Osteopenia, senile; Bilateral carotid artery stenosis; Basal cell carcinoma of face; Screening for depression; Encounter for screening examination for other mental health and behavioral disorders Start: 04-17-2025 End: 04-17-2025 ambulatory EARL ROMERO Facility:[place] Start: 01-20-2025 End: 01-20-2025 Refill Earl Romero MD Work Phone: [facility] Comment on above: Refill Request Start: 01-09-2025 End: 01-09-2025 Refill Earl Romero MD Work Phone: [facility] Comment on above: Refill Request Start: 12-31-2024 End: 12-31-2024 Follow-up encounter Earl Romero MD Work Phone: [facility] Start: 12-31-2024 End: 12-31-2024 ambulatory EARL NICK Facility:[place] Start: 11-06-2024 End: 11-06-2024 Telephone encounter Earl Romero MD Work Phone: [facility] Comment on above: Requesting testing Start: 10-21-2024 End: 10-21-2024 Chart abstracting Earl Romero MD Work Phone: [facility] Start: 10-21-2024 End: 10-21-2024 Telephone encounter Earl Romero MD Work Phone: [facility] Comment on above: Results Start: 10-20-2024 End: 10-21-2024 Refill Earl Romero MD Work Phone: [facility] [place] Comment on above: Refill Request (One touch ultra ) Start: 10-17-2024 End: 10-17-2024 Patient encounter procedure Earl Romero MD Work Phone: [facility] Comment on above: Acquired hypothyroid ism (Primary Dx); Type 2 diabetes mellitus with stage 3a chronic kidney disease, without long-term current use of insulin (HCC); Hypertensive kidney disease with stage 3 chronic kidney disease, unspecified whether stage 3a or 3b CKD (HCC); Hyperlipidemia LDL goal <100; Bilateral carotid artery stenosis; Basal cell carcinoma of face; Screening for depression; Encounter for screening examination for other mental health and behavioral disorders Start: 10-17-2024 End: 10-17-2024 ambulatory [facility] Facility:[place] Start: 10-10-2024 End: 10-10-2024 ambulatory [facility] Facility:[place] Start: 10-06-2024 End: 10-06-2024 Telephone encounter [facility] Comment on above: Orders Start: 10-01-2024 End: 10-01-2024 Patient encounter procedure Ashley Chairez APRN.JEWELRY INSPECTOR Work Phone: [facility] Comment on above: Lightheadedness (Daksha emery Dx); Headache, unspecified headache type Start: 10-01-2024 End: 10-01-2024 ambulatory EARL ROMERO Facility:[place] Start: 09-30-2024 End: 10-09-2024 Telephone encounter Earl Romero MD Work Phone: [facility] Comment on above: Future Appointment Start: 04-29-2024 End: 04-29-2024 Office outpatient visit 15 minutes Kaya Conte JOURNEYMAN OPERATOR ASSISTANT.SAUSAGE COOKER Work Phone: [facility] Comment on above: Cellulitis of skin ( Primary Dx); Primary hypertension Start: 04-17-2024 End: 04-17-2024 Office outpatient visit 15 minutes Kaya Conte JOURNEYMAN OPERATOR ASSISTANT.SAUSAGE COOKER Work Phone: [facility] Comment on above: Cellulitis of skin ( Primary Dx) Start: 04-16-2024 Refill Earl Romero MD Work Phone: [facility] [place] Comment on above: Refill Request Start: 04-15-2024 End: 04-15-2024 Patient encounter procedure Earl Romero MD Work Phone: [facility] Comment on above: Hypertensive kidney disease with stage 3 chronic kidney disease, unspecified whether stage 3a or 3b CKD (HCC) (Primary Dx); Hyperlipidemia LDL goal <100; Type 2 diabetes mellitus with stage 3a chronic kidney disease, without long-term current use of insulin (HCC); Acquired hypothyroidism; Basal cell carcinoma of face; Bilateral carotid artery stenosis Start: 04-11-2024 Telephone encounter Kaya Conte JOURNEYMAN OPERATOR ASSISTANT.SAUSAGE COOKER Work Phone: [facility] Comment on above: Results Start: 03-28-2024 Telephone encounter Earl Romero MD Work Phone: [facility] Comment on above: Lab Orders Start: 01-10-2024 Refill Earl Romero MD Work Phone: [facility] Comment on above: Refill Request Start: 11-08-2023 Telephone encounter Earl Romero MD Work Phone: Pulmonology [facility] Comment on above: Results (;r) Start: 10-24-2023 Telephone encounter [facility] Comment on [facility]: Patient Update Start: 10-18-2023 End: 10-18-2023 ambulatory [facility] Work Phone: Start: 10-18-2023 End: 10-18-2023 Patient encounter procedure [facility] Work Phone: Start: 10-09-2023 Refill Earl Romero MD Work Phone: [facility] Start: 10-08-2023 Telephone encounter Jose De Leon PA-C Work Phone: [facility] Start: 10-08-2023 End: 10-08-2023 Patient encounter procedure Earl Romero MD Work Phone: [facility] Comment on above: Hypertensive kidney disease with stage 3 chronic kidney disease, unspecified whether stage 3a or 3b CKD (HCC) (Primary Dx); Hyperlipidemia LDL goal <100; Type 2 diabetes mellitus with stage 3a chronic kidney disease, without long-term current use of insulin (HCC); Acquired hypothyroidism; Basal cell carcinoma of face; Bilateral carotid artery stenosis Start: 08-09-2023 Telephone encounter Earl Romero MD Work Phone: [facility] Comment on above: Results Start: 05-25-2023 Telephone encounter [facility] Comment on above: Patient Question Start: 05-24-2023 Telephone encounter [facility] Comment on above: Patient Question Start: 05-14-2023 Telephone encounter Jose De Leon PA-C [facility] Phone[facility] Comment on above: Results Start: 03-28-2023 End: 03-28-2023 Patient encounter procedure Earl Romero MD Work Phone: [facility] Comment on above: Hypertensive kidney disease with stage 3 chronic kidney disease, unspecified whether stage 3a or 3b CKD (HCC) (Primary Dx); Hyperlipidemia LDL goal <100; Acquired hypothyroidism; Bilateral carotid artery stenosis; Osteopenia, senile; Basal cell carcinoma of face; Type 2 diabetes mellitus with stage 3a chronic kidney disease, without long-term current use of insulin (HCC) Start: 03-22-2023 Telephone encounter [facility] Romero MD [facility] Comment on above: Results Start: 03-08-2023 Telephone encounter [facility] Rom[facility] MD [facility] Comment on above: Patient Question Start: 12-27-2022 Refill Earl Romero MD Work Phone: [facility] Comment on above: Refill Request Start: 11-06-2022 Telephone encounter Earl Romero MD Work Phone: [facility] Comment on above: Blood Pressure Check (/) Start: 11-06-2022 End: 11-06-2022 Nursing evaluation of patient and report Mi Nurse Work Phone: [facility] Comment on above: Hypertensive kidney disease with stage 3a chronic kidney disease (HCC) (Primary Dx) Start: 10-30-2022 ambulatory Earl Romero MD Work Phone: [facility] Comment on above: sinus congestion Start: 10-18-2022 Telephone encounter Earl Romero MD Work Phone: [facility] Comment on above: Results Start: 10-17-2022 End: 10-17-2022 ambulatory [facility] Work Phone: Start: 10-17-2022 End: 10-17-2022 Patient encounter procedure [facility] Start: 10-05-2022 Telephone encounter Earl Romero MD Work Phone: [facility] Comment on above: Orders Start: 04-12-2022 Refill Earl Romero MD Work Phone: [facility] Comment on above: Refill Request Start: 03-27-2022 Telephone encounter Earl Romero MD Work Phone: [facility] Comment on above: Results Procedures Date Procedure Procedure Detail Performing Clinician Start: 04-21-2025 Adult depression scr eening assessment Earl Romero MD Work Phone: Start: 10-17-2024 Adult depression scr eening assessment Earl Romero MD Work Phone: Start: 10-18-2023 Screening mammography Start: 10-17-2022 Screening mammography Plan of Treatment Date Care Activity Detail Author Start: 05-29-2033 Urine microalbumin profile DTaP,Tdap,Td Vaccine (2 - Td or Tdap) [facility] Start: 06-18-2026 Glaucoma screening Dilated Retinal E xam [facility] Start: 04-21-2026 Anxiety Screening Anxiety Screening [facility] Start: 04-21-2026 Depression Screening Depression Scre ening [facility] Start: 04-21-2026 Glaucoma screening Dilated Retinal E m [facility] Start: 04-21-2026 Medicare Annual Wellness Visit Medicare Annual Wellness Visit [facility] Start: 04-17-2026 Hepatitis B screening Urine Al bumin:Creatinine Ratio [facility] Start: 10-21-2025 End: 10-21-2025 Patient encounter procedure 10/21/2025 2:40 PM EST Office Visit [facility] [address] [place], [place] [id number] Earl Romero MD [address] [place], [place] [id number] 6 month follow up. Fasting labs prior [facility] Comment on above: 6 month follow up. F asting labs prior Start: 10-21-2025 End: 01-20-2026 CBC W Auto Differential panel - Blood COMPLETE BLOOD COUNT AND DIFFERENTIAL Lab Routine Hypertensive kidney disease with stage 3 chronic kidney disease, unspecified whether stage 3a or 3b CKD (HCC) Expected: 10/21/2025, Expires: 01/20/2026 [facility] Work Phone: Comment on above: Expected: 10/21/2025 , Expires: 01/20/2026 Start: 10-21-2025 End: 01-20-2026 Comprehensive metabolic 2000 panel - Serum or Plasma COMPREHENSIVE METABOLIC PANEL Lab Routine Hypertensive kidney disease with stage 3 chronic kidney disease, unspecified whether stage 3a or 3b CKD (HCC) Expected: 10/21/2025, Expires: 01/20/2026 [facility] Comment on above: Expected: 10/21/2025 , Expires: 01/20/2026 Start: 10-21-2025 End: 01-20-2026 Hemoglobin A1c in Blood HEMOGLOBIN A1C Lab Routine Type 2 diabetes mellitus with stage 3a chronic kidney disease, without long-term current use of insulin (HCC) Expected: 10/21/2025, Expires: 01/20/2026 [facility] Comment on above: Expected: 10/21/2025 , Expires: 01/20/2026 Start: 10-21-2025 End: 01-20-2026 Lipid 1996 panel - Serum or Plasma LIPID PANEL, FASTING Lab Routine Hyperlipidemia LDL goal <100 Expected: 10/21/2025, Expires: 01/20/2026 [facility] Comment on above: Expected: 10/21/2025 , Expires: 01/20/2026 Start: 10-21-2025 End: 01-20-2026 Thyrotropin [Units/volume] in Serum or Plasma THYROID STIMULATING HORMONE Lab Routine Acquired hypothyroidism Expected: 10/21/2025, Expires: 01/20/2026 [facility] Comment on above: Expected: 10/21/2025 , Expires: 01/20/2026 Start: 10-18-2025 Hemoglobin A1c measurement HbA1C [facility] Start: 10-17-2025 Anxiety Screening Anxiety Screening [facility] Start: 10-17-2025 Covid-19 Vaccine ( season) Covid-19 Vaccine () [facility] Comment on above: Postponed from 07/20 (Declined at this time) Start: 10-17-2025 Depression Screening Depression Scre ening [facility] Start: 10-17-2025 RSV Vaccine (1 - 1-d ose 75+ series) RSV Vaccine (1 - 1-dose 75+ series) [facility] Comment on above: Postponed from 11/04 (Declined at this time) Start: 10-10-2025 Hepatitis B surface antibody level LDL Cholesterol [facility] Start: 07-20-2025 Influenza vaccination Influenza Vacc ine (#1) [facility] Start: 05-18-2025 Influenza vaccination Influenza Vacc ine (#1) [facility] Comment on above: Postponed from 07/20 (Declined at this time) Start: 04-24-2025 End: 04-24-2025 Patient encounter procedure 04/24/2025 2:40 PM EDT Office [facility] [address] [facility] [facility] [place] [address] Garrett Liz MD [address] [place] [address] Thickening of vaginal wall OB/Gynecology Comment on above: Thickening of vagina l wall Start: 04-21-2025 End: 04-21-2025 Patient encounter procedure 04/21/2025 3:00 PM EDT Office Visit Family [facility] [address] [place], [place] [phone] Earl Romero MD [address] [place] [address] Medicare Wellness [facility] Comment on above: Medicare Wellness Start: 04-16-2025 End: 07-16-2025 Basic metabolic 2000 panel - Serum or Plasma BASIC METABOLIC PANEL Lab Routine Type 2 diabetes mellitus with stage 3a chronic kidney disease, without long-term current use of insulin (HCC) Expected: 04/16/2025, Expires: 07/16/2025 [facility] Comment on above: Expected: 04/16/2025 , Expires: 07/16/2025 Start: 04-16-2025 End: 07-16-2025 Hemoglobin A1c in Blood HEMOGLOBIN A1C Lab Routine Type 2 diabetes mellitus with stage 3a chronic kidney disease, without long-term current use of insulin (HCC) Expected: 04/16/2025, Expires: 07/16/2025 [facility] Comment on above: Expected: 04/16/2025 , Expires: 07/16/2025 Start: 04-16-2025 End: 07-16-2025 Microalbumin/Creatinine [Mass Ratio] in Urine ALBUMIN/CREATININE RATIO, URINE Lab Routine Type 2 diabetes mellitus with stage 3a chronic kidney disease, without long-term current use of insulin (HCC) Expected: 04/16/2025, Expires: 07/16/2025 [facility] Work Phone: Comment on above: Expected: 04/16/2025 , Expires: 07/16/2025 Start: 04-15-2025 Diabetic foot examination Diabetic Foot Exam [facility] Start: 04-09-2025 Hemoglobin A1c measurement HbA1C [facility] Start: 12-10-2024 End: 12-10-2024 Patient encounter procedure 12/10/2024 2:30 PM EST Office Visit Vasculary Surgery [address] [place] [address] Bilateral carotid artery stenosis [I65.23] [facility] Comment on above: Bilateral carotid ar caleb stenosis [I65.23] Start: 11-19-2024 Advance Directive Discussion Advance Directive Discussion [facility] Start: 11-15-2024 Hepatitis B screening Urine Al bumin:Creatinine Ratio [facility] Start: 11-15-2024 Hepatitis B surface antibody level LDL Cholesterol [facility] Start: 10-17-2024 End: 10-17-2024 Patient encounter procedure 10/17/2024 2:00 PM EST Office Visit [facility] [address] [place], [place] [phone] Earl Romero MD [address] [place] [address] 6 month follow up. Fasting labs prior [facility] Comment on above: 6 month follow up. F asting labs prior Start: 10-16-2024 End: 01-15-2025 CBC W Auto Differential panel - Blood COMPLETE BLOOD COUNT AND DIFFERENTIAL Lab Routine Hyperlipidemia LDL goal <100 Expected: 10/16/2024, Expires: 01/15/2025 [facility] Work Phone: Comment on above: Expected: 10/16/2024 , Expires: 01/15/2025 Start: 10-16-2024 End: 01-15-2025 Comprehensive metabolic 2000 panel - Serum or Plasma COMPREHENSIVE METABOLIC PANEL Lab Routine Hyperlipidemia LDL goal <100 Expected: 10/16/2024, Expires: 01/15/2025 [facility] Comment on above: Expected: 10/16/2024 , Expires: 01/15/2025 Start: 10-16-2024 End: 01-15-2025 Hemoglobin A1c in Blood HEMOGLOBIN A1C Lab Routine Type 2 diabetes mellitus with stage 3a chronic kidney disease, without long-term current use of insulin (HCC) Expected: 10/16/2024, Expires: 01/15/2025 [facility] Comment on above: Expected: 10/16/2024 , Expires: 01/15/2025 Start: 10-16-2024 End: 01-15-2025 Lipid 1996 panel - Serum or Plasma LIPID PANEL BASIC Lab Routine Hyperlipidemia LDL goal <100 Expected: 10/16/2024, Expires: 01/15/2025 [facility] Comment on above: Expected: 10/16/2024 , Expires: 01/15/2025 Start: 10-16-2024 End: 01-15-2025 Thyrotropin [Units/volume] in Serum or Plasma THYROID STIMULATING HORMONE Lab Routine Acquired hypothyroidism Expected: 10/16/2024, Expires: 01/15/2025 [facility] Comment on above: Expected: 10/16/2024 , Expires: 01/15/2025 Start: 10-11-2024 Hemoglobin A1c measurement HbA1C [facility] Start: 10-08-2024 Covid-19 Vaccine ( season) Covid-19 Vaccine ( season) [facility] Comment on above: Postponed from 07/20 (Declined at this time) Start: 10-08-2024 Hepatitis B Vaccine (1 of 3 - Risk 3-dose series) Hepatitis B Vaccine (1 of 3 - Risk 3-dose series) [facility] Comment on above: Postponed from 11/04 (Declined at this time) Start: 10-08-2024 RSV Vaccine (1 - 1-d ose 60+ series) RSV Vaccine (1 - 1-dose 60+ series) [facility] Comment on above: Postponed from 11/04 (Declined at this time) Start: 10-08-2024 RSV Vaccine (1 - 1-d ose 75+ series) RSV Vaccine (1 - 1-dose 75+ series) [facility] Comment on above: Postponed from 11/04 (Declined at this time) Start: 10-01-2024 End: 12-31-2024 Comprehensive metabolic 2000 panel - Serum or Plasma [facility] Work Phone: Comment on above: Expected: 10/01/2024 , Expires: 12/31/2024 Start: 07-20-2024 Covid-19 Vaccine () Covid-19 Vaccine () [facility] Start: 07-20-2024 Influenza vaccination [facility] Start: 06-13-2024 Glaucoma screening Dilated Retinal E xam [facility] Start: 06-13-2024 Hepatitis C antibody , confirmatory test Dilated Retinal Exam [facility] Start: 05-18-2024 Influenza vaccination Influenza Vacc ine (#1) [facility] Comment on above: Postponed from 07/20 (Declined at this time) Start: 05-16-2024 Hemoglobin A1c measurement HbA1C [facility] Start: 05-13-2024 End: 05-13-2024 Patient encounter procedure 05/13/2024 11:40 AM EDT Office Visit Family Medicine [facility] [address] [facility] [place] [address] Kaya Conte APRN.SAUSAGE COOKER [address] [facility], [place] [id number] 1 month BP check [facility] [place] Comment on above: 1 month BP check Start: 04-29-2024 End: 04-29-2024 Patient encounter procedure 04/29/2024 11:00 AM EDT Office Visit Family Medicine [facility] [address] [facility] [place] [address] Kaya Conte, JOURNEYMAN OPERATOR ASSISTANT.SAUSAGE COOKER [address] [facility], [place] [id number] 10 day follow up cellulitis [facility] Comment on above: 10 day follow up nelly lulitis Start: 04-15-2024 End: 04-15-2024 Patient encounter procedure 04/15/2024 3:40 PM EDT Office Visit Family Medicine [place] [address] [facility], [place] [id number] Earl Romero MD [address] [facility] [place] [address] 6 month follow up. Fasting labs prior [facility] [place] Comment on above: 6 month follow up. F asting labs prior Start: 04-07-2024 End: 07-07-2024 ALBUMIN/CREAT RATIO RND UR ALBUMIN/CREAT RATIO RND UR Lab Routine Type 2 diabetes mellitus with stage 3a chronic kidney disease, without long-term current use of insulin (HCC) Expected: 04/07/2024, Expires: 07/07/2024 [facility] Work Phone: Comment on above: Expected: 04/07/2024 , Expires: 07/07/2024 Start: 04-07-2024 End: 07-07-2024 CBC W Auto Differential panel - Blood CBC + DIFF Lab Routine Type 2 diabetes mellitus with stage 3a chronic kidney disease, without long-term current use of insulin (HCC) Expected: 04/07/2024, Expires: 07/07/2024 [facility] Work Phone: Comment on above: Expected: 04/07/2024 , Expires: 07/07/2024 Start: 04-07-2024 End: 07-07-2024 Comprehensive metabolic 2000 panel - Serum or Plasma COMP METABOLIC PANEL Lab Routine Type 2 diabetes mellitus with stage 3a chronic kidney disease, without long-term current use of insulin (HCC) Expected: 04/07/2024, Expires: 07/07/2024 [facility] Work Phone: Comment on above: Expected: 04/07/2024 , Expires: 07/07/2024 Start: 04-07-2024 End: 07-07-2024 Hemoglobin A1c in Blood HGB A1C Lab Routine Type 2 diabetes mellitus with stage 3a chronic kidney disease, without long-term current use of insulin (HCC) Expected: 04/07/2024, Expires: 07/07/2024 [facility] Work Phone: Comment on above: Expected: 04/07/2024 , Expires: 07/07/2024 Start: 04-07-2024 End: 07-07-2024 Lipid 1996 panel - Serum or Plasma LIPID PANEL BASIC Lab Routine Hyperlipidemia LDL goal <100 Type 2 diabetes mellitus with stage 3a chronic kidney disease, without long-term current use of insulin (HCC) Expected: 04/07/2024, Expires: 07/07/2024 [facility] Work Phone: Comment on above: Expected: 04/07/2024 , Expires: 07/07/2024 Start: 04-07-2024 End: 07-07-2024 Thyrotropin [Units/volume] in Serum or Plasma TSH BLD Lab Routine Acquired hypothyroidism Expected: 04/07/2024, Expires: 07/07/2024 [facility] Work Phone: Comment on above: Expected: 04/07/2024 , Expires: 07/07/2024 Start: 04-01-2024 Hemoglobin A1c measurement HbA1C [facility] Start: 04-01-2024 Hemoglobin A1c/Hemoglobin.total in Blood HbA1C [facility] Start: 03-28-2024 3 comp foot exam completed DIABETIC FOOT EXAM [facility] Start: 03-28-2024 End: 06-27-2024 Basic metabolic 2000 panel - Serum or Plasma BASIC METABOLIC PANEL Lab Routine Hypertensive kidney disease with stage 3 chronic kidney disease, unspecified whether stage 3a or 3b CKD (HCC) Type 2 diabetes mellitus with stage 3a chronic kidney disease, without long-term current use of insulin (HCC) Expected: 03/28/2024, Expires: 06/27/2024 [facility] Comment on above: Expected: 03/28/2024 , Expires: 06/27/2024 Start: 03-28-2024 End: 06-27-2024 CBC W Auto Differential panel - Blood COMPLETE BLOOD COUNT AND DIFFERENTIAL Lab Routine Hypertensive kidney disease with stage 3 chronic kidney disease, unspecified whether stage 3a or 3b CKD (HCC) Type 2 diabetes mellitus with stage 3a chronic kidney disease, without long-term current use of insulin (HCC) Expected: 03/28/2024, Expires: 06/27/2024 [facility] Work Phone: Comment on above: Expected: 03/28/2024 , Expires: 06/27/2024 Start: 03-28-2024 Diabetic foot examination Diabetic Foot Exam [facility] Start: 03-28-2024 End: 06-27-2024 Hemoglobin A1c in Blood HEMOGLOBIN A1C Lab Routine Hypertensive kidney disease with stage 3 chronic kidney disease, unspecified whether stage 3a or 3b CKD (HCC) Type 2 diabetes mellitus with stage 3a chronic kidney disease, without long-term current use of insulin (HCC) Expected: 03/28/2024, Expires: 06/27/2024 [facility] Comment on above: Expected: 03/28/2024 , Expires: 06/27/2024 Start: 03-21-2024 Hepatitis B screening URINE AL BUMIN:CREATININE RATIO [facility] Start: 03-21-2024 Hepatitis B surface antibody level LDL CHOLESTEROL [facility] Start: 11-19-2023 Advance Directive Discussion Advance Directive Discussion [facility] Start: 11-19-2023 Behavioral Health Screening Behavioral Health Screening [facility] Start: 11-19-2023 Depression Assessment Depression Ass essment [facility] Start: 11-07-2023 End: 02-06-2024 Basic metabolic 2000 panel - Serum or Plasma BASIC METABOLIC PNL Lab Routine Dehydration Expected: 11/07/2023, Expires: 02/06/2024 [facility] Work Phone: Comment on above: Expected: 11/07/2023 , Expires: 02/06/2024 Start: 09-28-2023 End: 11-28-2023 Basic metabolic 2000 panel - Serum or Plasma BASIC METABOLIC PNL Lab Routine Hypertensive kidney disease with stage 3 chronic kidney disease, unspecified whether stage 3a or 3b CKD (HCC) Expected: 09/28/2023, Expires: 11/28/2023 [facility] Work Phone: Comment on above: Expected: 09/28/2023 , Expires: 11/28/2023 Start: 09-28-2023 End: 11-28-2023 Hemoglobin A1c in Blood HGB A1C Lab Routine Type 2 diabetes mellitus with stage 3a chronic kidney disease, without long-term current use of insulin (HCC) Expected: 09/28/2023, Expires: 11/28/2023 [facility] Work Phone: Comment on above: Expected: 09/28/2023 , Expires: 11/28/2023 Start: 09-21-2023 Hemoglobin A1c/Hemoglobin.total in Blood HBA1C [facility] Start: 07-20-2023 [facility] Start: 05-24-2023 Hepatitis C antibody , confirmatory test DILATED RETINAL EXAM [facility] Start: 05-03-2023 End: 07-03-2023 Thyrotropin [Units/volume] in Serum or Plasma TSH BLD Lab Routine Acquired hypothyroidism Expected: 05/03/2023, Expires: 07/03/2023 [facility] Work Phone: Comment on above: Expected: 05/03/2023 , Expires: 07/03/2023 Start: 03-30-2023 3 comp foot exam completed DIABETIC FOOT EXAM [facility] Start: 03-28-2023 Hemoglobin A1c/Hemoglobin.total in Blood HBA1C [facility] Start: 03-24-2023 Hepatitis B screening URINE AL BUMIN:CREATININE RATIO [facility] Start: 03-24-2023 Hepatitis B surface antibody level LDL CHOLESTEROL [facility] Start: 11-19-2022 ADVANCE DIRECTIVE DISCUSSION ADVANCE DIRECTIVE DISCUSSION [facility] Start: 11-19-2022 DEPRESSION ASSESSMENT DEPRESSION ASS ESSMENT [facility] Start: 09-24-2022 Hemoglobin A1c/Hemoglobin.total in Blood HBA1C [facility] Start: 09-07-2022 COVID-19 VACCINE (5 - Booster for Pfizer series) COVID-19 VACCINE (5 - Booster for Pfizer series) [facility] Start: 09-07-2022 Covid-19 Vaccine (5 - Pfizer series) Covid-19 Vaccine (5 - Pfizer series) [facility] Start: 07-20-2022 Influenza vaccination INFLUENZA (#1) [facility] Start: 04-13-2022 Hepatitis C antibody , confirmatory test DILATED RETINAL EXAM [facility] Start: 01-06-2022 COVID-19 VACCINE (4 - Booster for Pfizer series) COVID-19 VACCINE (4 - Booster for Pfizer series) [facility] Start: 11-19-2021 ADVANCE DIRECTIVE DISCUSSION ADVANCE DIRECTIVE DISCUSSION [facility] Start: 07-19-2021 3 comp foot exam completed DIABETIC FOOT EXAM [facility] Start: 2012 RSV Vaccine (1 - 1-d ose 75+ series) RSV Vaccine (1 - 1-dose 75+ series) [facility] Start: 06-11-2009 Urine microalbumin profile [facility] Start: 1997 Hepatitis B Vaccine (1 of 3 - Risk 3-dose series) Hepatitis B Vaccine (1 of 3 - Risk 3-dose series) [facility] Start: 1955 Anxiety Screening Anxiety Screening [facility] Start: 1955 Depression Screening Depression Scre ening [facility] Start: 1943 PNEUMOCOCCAL: 65+ (1 - PCV) PNEUMOCOCCAL: 65+ (1 - PCV) [facility] End: 11-05-2025 DBT Breast - bilateral screening HAIR SCREENING [facility] Radiology Routine Screening mammogram for breast cancer 1 Occurrences starting 10/06/2024 until 11/05/2025 [facility] Work Phone: Comment on above: 1 Occurrences starti ng 10/06/2024 until 11/05/2025 End: 2023 HAIR SCREENING W [facility] HAIR SCREENING [facility] Radiology Routine Encounter for screening mammogram for malignant neoplasm of breast 1 Occurrences starting 10/05/2022 until 2023 [facility] Work Phone: Comment on above: 1 Occurrences starti ng 10/05/2022 until 2023 End: 11-06-2025 US Carotid arteries - bilateral US CAROTID ARTERIES [facility] Vascular Lab Routine Bilateral carotid artery stenosis 1 Occurrences starting 11/06/2024 until 11/06/2025 [facility] Work Phone: Comment on above: 1 Occurrences starti ng 11/06/2024 until 11/06/2025 [facility] Immunizations Immunization Date Immunization Notes Care Provider [facility] 10-22-2024 influenza, seasonal, injectable, preservative free Earl Romero MD Work Phone: [facility] 10-22-2024 influenza virus vacc ine, unspecified formulation Earl Romero MD Work Phone: [facility] 05-29-2023 tetanus toxoid, redu hetal diphtheria toxoid, and acellular pertussis vaccine, adsorbed NA Moises NICK Work Phone: [facility] 07-13-2022 COVID-19 original vaccine, age 12+ yr, monovalent (PFIZER-BIONTECH - DAWKINS TOP) Earl Romero MD Work Phone: [facility] 11-24-2021 influenza, seasonal, injectable Earl Romero MD Work Phone: [facility] 11-24-2021 influenza virus vacc ine, unspecified formulation Earl Romero MD Work Phone: [facility] 09-05-2021 COVID-19 vaccine, ag e 12+ yr (PFIZER-BIONTECH - PURPLE TOP) Earl Romero MD Work Phone: [facility] 01-08-2021 COVID-19 vaccine, ag e 12+ yr (PFIZER-BIONTECH - PURPLE TOP) Earl Romero MD Work Phone: [facility] 12-21-2020 COVID-19 vaccine, ag e 12+ yr (PFIZER-BIONTECH - PURPLE TOP) Earl Romero MD Work Phone: [facility] 11-29-2020 zoster vaccine recombinant Earl Romero MD Work Phone: [facility] 09-07-2020 zoster vaccine recombinant Earl Romero MD Work Phone: [facility] 10-07-2016 influenza, high dose seasonal, preservative-free Earl Romero MD Work Phone: [facility] 10-06-2015 influenza, injectabl e, quadrivalent, preservative free Earl Romero MD Work Phone: [facility] 05-27-2015 pneumococcal conjuga te vaccine, 13 valent Earl Romero MD Work Phone: [facility] 08-04-2014 influenza, seasonal, injectable, preservative free Earl Romero MD Work Phone: [facility] 09-10-2013 influenza virus vacc ine, unspecified formulation Earl Romero MD Work Phone: [facility] Work Phone: 02-06-2013 pneumococcal polysaccharide vaccine, 23 valent Earl Romero MD Work Phone: [facility] 06-10-2009 tetanus and diphther ia toxoids, adsorbed, preservative free, for adult use (2 Lf of tetanus toxoid and 2 Lf of diphtheria toxoid) Earl Romero MD Work Phone: [facility] 06-10-2009 zoster vaccine, live Earl Romero MD Work Phone: [facility] Payers Date Payer Category Payer Self-pay [id number] 2016 Private Health Insurance [employer] PPO [id number] 2016-Present [phone] [address] [place] [address] [facility] [id number] 2016 Private Health Insurance [id number] 2016 Private Health Insurance [id number] 2002 Medicare MEDICARE MEDICAR E A AND B [id number] 2002-Present [phone] [address] [address] [place] [address] Medicare [id number] 2002 Medicare [id number] 2002 Medicare [id number] Unknown [id number] Social History Date Type Detail Facility [facility]: [facility] Start: 12-01-2021 End: 04-24-2025 Alcohol intake Current drinker of alcohol (finding) [facility] Start: 12-01-2021 End: 03-28-2023 Alcohol intake [facility] Work Phone: Start: 1935 Sex Assigned At Not on file [facility] Start: 02-21-2022 End: 10-05-2022 Exposure to SARS-CoV-2 (event) Not sure [facility] Work Phone: Start: 10-05-2022 Tobacco use and exposure Smokeless tobacco non-user [facility] Start: 09-25-2021 Tobacco smoking stat us [facility] Unknown if ever smoked [facility] Start: 1935 Sex Assigned At Female [facility] Start: 03-28-2023 End: 04-21-2025 Tobacco use panel [facility] Work Phone: Start: 10-20-2012 Adult Depression Screening Assessment 0 [facility] Work Phone: Medical Equipment Procedure Code Equipment Code Equipment Origin al Text Equipment Identifier Dates [id number], [id number], [id number] Start: 07-01-2019 End: 10-20-2024 Comment on above: Test blood sugar(s) 1 times daily. Dx: 250.00 , E11.22. Insulin: No 1 Each once daily. T EST ONCE DAILY Functional Status Date Assessment Result Facility 07-11-2017 Are you deaf, or do you have serious difficulty hearing No 07/11/2017 1:19 PM Manny Ritchie III, MD No [facility] 07-11-2017 Are you blind, or do you have serious difficulty seeing, even when wearing glasses No 07/11/2017 1:19 PM Manny Ritchie III, MD No [facility] 07-11-2017 Do you have serious difficulty walking or climbing stairs No 07/11/2017 1:19 PM Manny Ritchie III, MD No [facility] 07-11-2017 Do you have difficul ty dressing or bathing No 07/11/2017 1:19 PM Manny Ritchie III, MD No [facility] 07-11-2017 Because of a physica l, mental, or emotional condition, do you have difficulty doing errands alone such as visiting a physician's office or shopping No 07/11/2017 1:19 PM EDT Manny Calrk III, MD No [facility] Mental Status Date Assessment Result Facility 07-11-2017 Because of a physica l, mental, or emotional condition, do you have serious difficulty concentrating, remembering, or making decisions No 07/11/2017 1:19 PM EDT Manny Clark III, MD No [facility] Clinical Notes 07-11-2017 to 09-24-2025 Telephone Encounter - Jose Berry RN - 07/29/2025 4:28 PM EDTTelephone Encounter - Jose Berry RN - 07/29/2025 4:28 PM EDTGarrett Liz MD - 04/24/2025 2:29 PM EDTPatient Instructions Note Date & Type Note Facility 09-24-2025 Note HNO ID: [id number] Author: KAYA CONTE APRN.JEWELRY INSPECTOR Service: ? Author Type: Nurse Practitioner Type: Progress Notes Filed: 09/24/2025 09:22 Note Text: This is a 89 year old female who presents today with: No chief complaint on file. HISTORY OF PRESENT ILLNESS: Courtney James is a 89 year old female. No chief complaint on file. Follow up on headache. The patient is an 89-year-old female presenting for evaluation of a thunderclap-type headache with associated transient lightheadedness. Courtney James is an 89-year-old female presenting for evaluation of a previous episode of acute cephalalgia and near-syncope. Cephalalgia and Near-Syncope: - Acute onset of severe cephalalgia described as lightning struck the top of my head, followed by near-syncope while outside on a hot day. - Episode occurred while walking from the patio to the driveway; had been hydrating with water. - Denies previous episodes of syncope. - Persistent mild cephalalgia for several days post-episode. - Denies recurrent dizziness, lightheadedness, or unsteadiness. - MRI showed sinus thickening. - Denies dyspnea, cough, wheezing, chest pain, palpitations, or leg edema. - Denies current nausea or emesis; recalls a past episode of nausea with diarrhea, suspecting a viral etiology. - Reports occasional mild post-nasal drainage. - Lives in a dry environment; uses a humidifier. 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 Diarrhea Essential hypertension, benign 11/28/2011 Family history of malignant neoplasm of gastrointestinal tract Hyperlipidemia 10/31/2011 Hyperlipidemia LDL goal <100 05/15/2016 Osteopenia, senile 07/05/2017 Type II or unspecified type diabetes mellitus with renal manifestations, not stated as uncontrolled(250.40) 11/06/2013 250.40 PAST SURGICAL HISTORY Procedure Laterality Date COLONOSCOPY W/BIOPSY SINGLE/MULTIPLE 08/23/10 PAST 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 Take on empty stomach. For thyroid. simvastatin (ZOCOR) 20 mg tablet Take 1 tablet by mouth daily at bedtime. amLODIPine (NORVASC) 5 mg tablet Take 1 tablet by mouth once daily. blood sugar diagnostic (BLOOD GLUCOSE TEST) test strip Test blood sugar(s) 1 times daily. Dx: 250.00 , E11.22. Insulin: No benzonatate (TESSALON PERLES) 100 mg capsule Take 1 capsule by mouth three times a day as needed. meclizine (ANTIVERT) 12.5 mg tab Take 1 tablet by mouth every 6 hours as needed (dizziness). ondansetron orally disintegrating (ZOFRAN ODT) 4 mg disintegrating tablet Take 1 tablet by mouth every 6 hours as needed for Nausea/Vomiting for up to 10 doses. Lancets (COMFORT LANCETS) lancets 1 Each once daily. TEST ONCE DAILY Cholecalciferol, Vitamin D3, 2,000 unit cap Take 1 capsule by mouth once daily. No current facility-administered medications for this visit. FAMILY HISTORY Problem Relation Age of Onset Breast Cancer Mother STOMACH Heart Mother Diabetes Mother other (polycystic kidney disease) Son Hypertension Sister Ischemic Heart Disease Sister Breast Cancer Sister Heart Brother Colon Cancer Brother other (CVA) Son 58 SOCIAL HISTORY[1] REVIEW OF SYSTEMS Ears/Nose/Mouth/Throat: (+) nasal drainage Neck: (-) neck swelling Cardiovascular: (-) chest pain, (-) palpitations, (-) orthopnea, (-) leg swelling Respiratory: (-) shortness of breath, (-) cough, (-) wheezing Gastrointestinal: (-) nausea, (-) vomiting Neurological: (+) lightheadedness, (-) dizziness, (-) unsteady gait EXAM: BP 140/70 (BP Site: Left Arm, BP Position: Sitting) Pulse 88 Wt 54.9 kg (121 lb) SpO2 95% BMI 23.45 kg/m? PHYSICAL EXAM: GENERAL: NAD, alert and oriented. SKIN: Unremarkable, no rash or skin lesions. HEAD: Normocephalic. EYES: PERRLA, EOMI, conjunctiva clear. EARS: External ears normal, canals clear, TM's normal. NOSE/SINUSES: Nares normal. Septum midline. No significant drainage noted. OROPHARYNX: Lips, mucosa, and tongue normal, good dentition. No oral lesions noted. NECK: Supple, no lymphadenopathy, normal thyroid, no carotid bruits. LUNGS: Clear to auscultation bilaterally, no wheezes/rhonchi/rales. HEART: Regular rate and rhythm, no murmurs. No ectopy. EXTREMITIES: Normal, no deformities, no skin discoloration, no edema. NEURO: Awake, alert and oriented x3, cranial nerves II-XII grossly intact, normal gait, no involuntary motions. LABS: Imaging: - MRI: Overall normal; paranasal sinus mucosal thickening suggesting inflammation. ASSESSMENT/PLAN: 1. Hypertensive kidney disease with stage 3 chronic kidney disease, unspecif (more content not included)... [facility] 09-02-2025 Note HNO ID: [id number] Author: EMERY BAI RT(R) Service: ? Author Type: Technologist Type: Progress Notes Filed: 09/02/2025 12:30 Note Text: Radiology Service Progress Note DATE OF SERVICE: September 02, 2025 TIME: 12:30 PM PATIENT IDENTITY VERIFICATION COMPLETED USING TWO (2) STANDARD IDENTIFIERS: Name and Date of confirmed by patient verbally. FALL SCREENING: Has the patient had 2 falls in the last year or 1 fall with injury or currently using an Ambulatory Assistive Device (Walker, Cane, Wheelchair, Crutches, etc.)? No PATIENT GENDER DATA: Assigned female at . status: : No status: NO. PATIENT RELEVANT IMPLANT DATA REVIEWED: Yes PATIENT PRESENTS WITH AN IMPLANTABLE OR ATTACHED WIRE PHOTO OPERATOR: No ALLERGIES: Reviewed and unchanged CONTRAST ALLERGY: NO. EXAM: MRI - CONTRAST TYPE: GROUP II PERIPHERAL IV DATA: Ambulatory: A peripheral IV was started in the Right antecubital site with a Angio cath: 22 gauge. RADIOLOGY DEPARTMENT: MR; Exam(s) Completed: Head: Routine Brain. Anesthesia: No. Aromatherapy Administered: No SIGNATURE: Emery Bai, RT(R) PATIENT NAME: Courtney James DATE: September 02, 2025 TIME: 12:30 PM [facility] 08-18-2025 Note HNO ID: [id number] Author: ERAL ROMERO MD Service: ? Author Type: Physician Type: Progress Notes Filed: 08/18/2025 12:24 Note Text: The patient is an 89-year-old female with HTN and DM, presenting for evaluation of a near-syncopal episode associated with abrupt-onset headache. HPI Headache and Near-Syncope: - Sudden onset of severe headache and near-syncope on 07/26, described as feeling like lightning struck the top of her head. - Episode occurred after eating a dessert with potentially spoiled milk and walking a short distance to her daughter. - [place] the need to sit down immediately; laid down for the rest of the day. - Persistent headache for most of the following week. - No similar episodes since then. - Denies blurred or double vision, dizziness, tinnitus, chest pain, palpitations, numbness, or weakness. - No history of migraines; does not frequently experience headaches. - No recent changes in medication. - Concerned about the possibility of an aneurysm during the episode. Did not go to the ER and instead decided to wait until weeks later to be seen. Recurrent Lightheadedness: - History of recurrent lightheadedness, particularly upon waking in the morning. - Has been evaluated multiple times in the past, including ER visits, CT scan in 2016, MRI in 2020, echocardiograms, and cardiac monitoring. Has has descriptions of lightheadedness dating back over a decade. - Previous episodes sometimes associated with changes in head or neck position. - No episodes of actual syncope reported. - Denies any recent increase in urinary frequency or volume, or polydipsia. - No recent fever, chills, cough, nausea, vomiting, diarrhea, or abdominal pain. - No recent exposure to extreme heat or dehydration. - No recent changes in diet or fluid intake. - Negative orthostatics. MEDICATIONS: Current Outpatient Medications Medication Sig simvastatin (ZOCOR) 20 mg tablet Take 1 tablet by mouth daily at bedtime. amLODIPine (NORVASC) 5 mg tablet Take 1 tablet by mouth once daily. Cholecalciferol, Vitamin D3, 2,000 unit cap Take 1 capsule by mouth once daily. levothyroxine (SYNTHROID) 50 mcg tablet Take 1 tablet by mouth once daily. Take on empty stomach. For thyroid. blood sugar diagnostic (BLOOD GLUCOSE TEST) test strip Test blood sugar(s) 1 times daily. Dx: 250.00 , E11.22. Insulin: No benzonatate (TESSALON PERLES) 100 mg capsule Take 1 capsule by mouth three times a day as needed. meclizine (ANTIVERT) 12.5 mg tab Take 1 tablet by mouth every 6 hours as needed (dizziness). ondansetron orally disintegrating (ZOFRAN ODT) 4 mg disintegrating tablet Take 1 tablet by mouth every 6 hours as needed for Nausea/Vomiting for up to 10 doses. Lancets (COMFORT LANCETS) lancets 1 Each once daily. TEST ONCE DAILY No current facility-administered medications for this visit. 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 Diarrhea Essential hypertension, benign 11/28/2011 Family history of malignant neoplasm of gastrointestinal tract Hyperlipidemia 10/31/2011 Hyperlipidemia LDL goal <100 05/15/2016 Osteopenia, senile 07/05/2017 Type II or unspecified type diabetes mellitus with renal manifestations, not stated as uncontrolled(250.40) 11/06/2013 250.40 PAST SURGICAL HISTORY Procedure Laterality Date COLONOSCOPY W/BIOPSY SINGLE/MULTIPLE 08/23/10 PAST SURGICAL 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 REVIEW OF SYSTEMS Constitutional: (-) fatigue, (-) fever, (-) chills Head: (-) headache Eyes: (-) blurred vision, (-) double vision Ears/Nose/Mouth/Throat: (-) tinnitus Cardiovascular: (-) chest pain, (-) palpitations Respiratory: (-) cough Gastrointestinal: (-) vomiting, (-) diarrhea, (-) abdominal pain Genitourinary: (-) urinary frequency Neurological: (-) dizziness, (-) syncope Endocrine: (-) polydipsia HEALTH MAINTENANCE: Reviewed health maintenance issues today and recommended the following in detail. Diabetic Foot Exam due on 04/15/2025 Influenza Vaccine(1) due on 07/20/2025 LAB REVIEWED: - Carotid ultrasound: Stable compared to prior. Done in last year. VITALS: BP 140/62 Pulse 94 Wt 55.8 kg (123 lb) SpO2 99% BMI 23.83 kg/m? Last 4 Encounter Wt Readings: Date: Wt: 08/18/2025 55.8 kg (123 lb) 04/24/2025 56. (more content not included)... [facility] 07-29-2025 Telephone encounter Note Reason for Conversation Headache Background Pt reports she had an episode 4 days ago where she felt like she would pass out. Has been doing ADLs but still has a slight MAE. No other symptoms to report and stated she does not want to answer any questions. States she will just wait and see how she feels and if symptoms do not resolve or become worse pt will call back. Disposition No disposition on file. Reason for Disposition No Reason for Disposition on file. 1. LOCATION: Pt reports she has been having slight MAE since Sunday. Reports Sunday felt like she would pass out. Top of head slight MAE. Suddenly felt like she would pass out with a sharp pain at top of head. Laid down for a few hours, and still feels tired and irritable. Pt didn't want to answer any more questions. States she just wondered if a flu or something was going around. Pt did not report any flu s/s. Reports she's just been laying around because she feels blah and has a slight MAE. Reports her BP yesterday was good, and she really doesn't check her BS much but thinks it is ok. States she just thought she should schedule appt but doesn't want to do that right now. Pt states she went to the store today but didn't want to. Reports she is able to care for herself and doesn't want to answer any more questions. Will call back or go to ER if symptoms become worse. Pt ended call. 2. ONSET: 3. PATTERN: 4. SEVERITY: 5. RECURRENT SYMPTOM: 6. CAUSE: 7. MIGRAINE: 8. HEAD INJURY: 9. OTHER SYMPTOMS: 10. : No Additional Information on file. Protocols Used [id number] [facility] 07-29-2025 Miscellaneous Notes Reason for Conversation Headache Background Pt reports she had an episode 4 days ago where she felt like she would pass out. Has been doing ADLs but still has a slight MAE. No other symptoms to report and stated she does not want to answer any questions. States she will just wait and see how she feels and if symptoms do not resolve or become worse pt will call back. Disposition No disposition on file. Reason for Disposition No Reason for Disposition on file. 1. LOCATION: Pt reports she has been having slight MAE since Sunday. Reports Sunday felt like she would pass out. Top of head slight MAE. Suddenly felt like she would pass out with a sharp pain at top of head. Laid down for a few hours, and still feels tired and irritable. Pt didn't want to answer any more questions. States she just wondered if a flu or something was going around. Pt did not report any flu s/s. Reports she's just been laying around because she feels blah and has a slight MAE. Reports her BP yesterday was good, and she really doesn't check her BS much but thinks it is ok. States she just thought she should schedule appt but doesn't want to do that right now. Pt states she went to the store today but didn't want to. Reports she is able to care for herself and doesn't want to answer any more questions. Will call back or go to ER if symptoms become worse. Pt ended call. 2. ONSET: 3. PATTERN: 4. SEVERITY: 5. RECURRENT SYMPTOM: 6. CAUSE: 7. MIGRAINE: 8. HEAD INJURY: 9. OTHER SYMPTOMS: 10. : No Additional Information on file. Protocols Used [id number] documented in this encounter [facility] 04-24-2025 Note HNO ID: [id number] Author: GARRETT LIZ MD Service: ? 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 Courtney James is a 89 year old female who presents for problem visit - firmness over the left labia. HPI: She has felt a firmness over the left labia for 3 weeks. No other vaginal symptoms. She noticed this change when wiping. 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 Diarrhea Essential hypertension, benign 11/28/2011 Family history of malignant neoplasm of gastrointestinal tract Hyperlipidemia 10/31/2011 Hyperlipidemia LDL goal <100 05/15/2016 Osteopenia, senile 07/05/2017 Type II or unspecified type diabetes mellitus with renal manifestations, not stated as uncontrolled(250.40) 11/06/2013 250.40 PAST SURGICAL HISTORY Procedure Laterality Date COLONOSCOPY W/BIOPSY SINGLE/MULTIPLE 08/23/10 PAST SURGICAL 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 Take on empty stomach. For thyroid. simvastatin (ZOCOR) 20 mg tablet Take 1 tablet by mouth daily at bedtime. amLODIPine (NORVASC) 5 mg tablet Take 1 tablet by mouth once daily. blood sugar diagnostic (BLOOD GLUCOSE TEST) test strip Test blood sugar(s) 1 times daily. Dx: 250.00 , E11.22. Insulin: No benzonatate (TESSALON PERLES) 100 mg capsule Take 1 capsule by mouth three times a day as needed. meclizine (ANTIVERT) 12.5 mg tab Take 1 tablet by mouth every 6 hours as needed (dizziness). ondansetron orally disintegrating (ZOFRAN ODT) 4 mg disintegrating tablet Take 1 tablet by mouth every 6 hours as needed for Nausea/Vomiting for up to 10 doses. Lancets (COMFORT LANCETS) lancets 1 Each once daily. TEST ONCE DAILY Cholecalciferol, Vitamin D3, 2,000 unit cap Take 1 capsule by mouth once daily. No current facility-administered medications for this visit. Allergies As of Date: 04/24/2025 Allergen Noted Reaction ACCUPRIL [QUINAPRIL HCL] 11/28/2011 Cough CODEINE 09/26/2005 LISINOPRIL 10/31/2011 Cough Fully Assessed 04/24/2025 REVIEW OF SYSTEMS Expanded ROS: No vaginal discharge, burning, pain, itching. Allergies and current medication updated:Yes SENSITIVE EXAM: The sensitive examination was discussed with the Patient or Patient's Authorized Electronic Integrated Systems Mechanic. As applicable, any other physician, advance practice provider, medical student, or other health professional student that will be observing or involved in the sensitive examination for educational or training purposes was discussed with the Patient or Authorized Electronic Integrated Systems Mechanic. The Patient or Authorized Electronic Integrated Systems Mechanic has agreed to proceed with the sensitive examination. (Sensitive examination includes inspection and/or palpation of the breasts, pelvis, prostate and anorectal regions). EXAM: BP 120/70 Wt 124 lb 3.2 oz (56.3kg) GENERAL: pleasant, female in no apparent distress HEENT: Normocephalic and atraumatic NECK: full range of motion CHEST: Normal inspiratory effort PELVIC: external genitalia atrophic and otherwise normal, normal Bartholin's glands, urethra, [place]'s glands, no vulvar lesions, no cervical lesions, normal appearing perineal body and perianal region NEURO: exam grossly non-focal EXTREMITIES: normal ASSESSMENT AND PLAN: Assessment AND Plan Skin change Unremarkable exam today. Reviewed vulvar care and hygiene measures. Discussed reasons to call. Garrett Liz, DO I spent 10 minutes in the visit, with more than 50% of the total [id number] time of the visit in counseling / coordination of care. 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 Courtney James is a 89 year old female who presents for problem visit - firmness over the left labia. HPI: She has felt a firmness over the left labia for 3 weeks. No other vaginal symptoms. She noticed this change when wiping. 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 Diarrhea Essential hypertension, benign 11/28/2011 Family history of malignant neoplasm of gastrointestinal tract Hyperlipidemia 10/31/2011 Hyperlipidemia LDL goal <100 05/15/2016 Osteopenia, senile 07/05/2017 Type II or unspecified type diabetes mellitus with renal manifestations, not stated as uncontrolled(250.40) 11/06/2013 250.40 PAST SURGICAL HISTORY Procedure Laterality Date COLONOSCOPY W/BIOPSY SINGLE/MULTIPLE 08/23/10 PAST SURGICAL 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 Take on empty stomach. For thyroid. simvastatin (ZOCOR) 20 mg tablet Take 1 tablet by mouth daily at bedtime. amLODIPine (NORVASC) 5 mg tablet Take 1 tablet by mouth once daily. blood sugar diagnostic (BLOOD GLUCOSE TEST) test strip Test blood sugar(s) 1 times daily. Dx: 250.00 , E11.22. Insulin: No benzonatate (TESSALON PERLES) 100 mg capsule Take 1 capsule by mouth three times a day as needed. meclizine (ANTIVERT) 12.5 mg tab Take 1 tablet by mouth every 6 hours as needed (dizziness). ondansetron orally disintegrating (ZOFRAN ODT) 4 mg disintegrating tablet Take 1 tablet by mouth every 6 hours as needed for Nausea/Vomiting for up to 10 doses. Lancets (COMFORT LANCETS) lancets 1 Each once daily. TEST ONCE DAILY Cholecalciferol, Vitamin D3, 2,000 unit cap Take 1 capsule by mouth once daily. No current facility-administered medications for this visit. Allergies As of Date: 04/24/2025 Allergen Noted Reaction ACCUPRIL [QUINAPRIL HCL] 11/28/2011 Cough CODEINE 09/26/2005 LISINOPRIL 10/31/2011 Cough Fully Assessed 04/24/2025 REVIEW OF SYSTEMS Expanded ROS: No vaginal discharge, burning, pain, itching. Allergies and current medication updated:Yes SENSITIVE EXAM: The sensitive examination was discussed with the Patient or Patient's Authorized Electronic Integrated Systems Mechanic. As applicable, any other physician, advance practice provider, medical student, or other health professional student that will be observing or involved in the sensitive examination for educational or training purposes was discussed with the Patient or Authorized Electronic Integrated Systems Mechanic. The Patient or Authorized Electronic Integrated Systems Mechanic has agreed to proceed with the sensitive examination. (Sensitive examination includes inspection and/or palpation of the breasts, pelvis, prostate and anorectal regions). EXAM: BP 120/70 Wt 124 lb 3.2 oz (56.3kg) GENERAL: pleasant, female in no apparent distress HEENT: Normocephalic and atraumatic NECK: full range of motion CHEST: Normal inspiratory effort PELVIC: external genitalia atrophic and otherwise normal, normal Bartholin's glands, urethra, [place]'s glands, no vulvar lesions, no cervical lesions, normal appearing perineal body and perianal region NEURO: exam grossly non-focal EXTREMITIES: normal ASSESSMENT AND PLAN: Assessment & Plan Skin change Unremarkable exam today. Reviewed vulvar care and hygiene measures. Discussed reasons to call. Garrett Liz, DO I spent 10 minutes in the visit, with more than 50% of the total [id number] time of the visit in counseling / coordination of care. documented in this encounter [facility] 04-21-2025 Instructions Earl Romero MD - 04/21/2025 3:38 PM EDT - Your levothyroxine prescription has been refilled and sent to your pharmacy--continue taking it as directed. - Do not take the potassium supplement you bought unless I specifically instruct you to do so. - I will order routine blood tests for you in six months; please schedule those when the time comes. - Apply a good moisturizer to your feet daily to help with dryness. - Keep your appointment this Sunday with Dr. Zuleima Lee at the [facility] on [facility] for your health exam and pelvic check. documented in this encounter [facility] 04-21-2025 Note HNO ID: [id number] Author: EARL ROMERO MD Service: ? Author Type: Physician Type: Progress Notes Filed: 04/21/2025 15:42 Note Text: Courtney James is a 89 year old female here for a Medicare wellness visit. Medicare Health Risk Assessment General Health Very good. Exercise: Minutes/Day Not regularly but does stairs daily Exercise: Days/Week NA Alcohol: Daily Use none Alcohol: Drinks/Day no Alcohol: 6 or more drinks no Feel off balance none Concerns: Teeth/Dentures Uses dentures. Concerns: Sexual function none Troubled by feelings no Frequency: Eating healthy diet Feels her diet is healthy ADLs requiring help Does her own ADLS Safety precautions in home/vehicle yes Smoke, vape, chews tobacco no Difficulty hearing no Difficulty seeing no Current Providers Specialists: I have reviewed specialist-related care of the patient in the medical record. Current care team: Patient Care Team: Earl Romero MD as PCP - General (Family Medicine) Raina Chacon APRN.CNP as Store Assistant (Family Medicine) Kaya Conte APRN.CNP as Store Assistant (Family Medicine) [facility] professor Dr. Jara: DERM Medical/Family history review Reviewed and updated problem list, medical/surgical/family/social history, medications, and allergies. Opioid use review Opioid Medications (last 90 days) No data to display Anxiety/Depression screening Recommendation: no further intervention at this time Cognitive screening Mini Cog Score: 3 Cognitive screening reviewed and No further action needed (score 3-5). Functional Observation Was the patient's Timed Up AND Go test unsteady or >= 12 seconds? No Advance Care Planning Surrogate decision maker and/or advance care plan documented Measurements BP 128/60 Pulse 109 Ht 153 cm (5' 0.24) Wt 56.9 kg (125 lb 6.4 oz) SpO2 97% BMI 24.30 kg/m? Vision Screening: Follows with optometry/ophthalmology ADDITIONAL INFO: Annual Wellness Exam: - No regular exercise; stays active by walking around her property and gardening. - Denies alcohol consumption; occasionally drinks soda. - Reports a healthy diet. - Denies balance issues or falls. - Wears dentures; reports they are loose due to gum shrinkage. - Denies concerns with sexual functioning. - Denies feeling down, depressed, or hopeless; denies loss of interest or pleasure in activities. - Denies feeling nervous, anxious, or on edge; denies inability to control worrying. - Denies issues with hearing or vision; sees an eye doctor annually at the [facility]. - Denies issues with ears, throat, or neck. - Denies cough, wheezing, chest pain, or palpitations. - Denies edema in legs. - Denies current nausea, vomiting, or diarrhea. - Reports dry skin on feet; uses moisturizer. - Has a medical living will; daughter Sheri is in charge of healthcare decisions. Diabetes Mellitus: - Recent A1c was 6.8%. - Denies seeing a manager of learning. Hypothyroidism: - Taking levothyroxine. Skin Cancer: - History of skin cancer on the nose; underwent Mohs procedure with skin grafting. - Follows up with rooming house inspector Rickey Jara. Vertigo: - Occasional dizziness when turning from right to left side in bed; last episode approximately five months ago. ROS: Eyes: (-) visual disturbance Ears/Nose/Mouth/Throat: (+) loose dentures, (-) hearing loss Neck: (-) neck pain Cardiovascular: (-) chest pain, (-) palpitations, (-) syncope, (-) peripheral edema Respiratory: (-) cough, (-) wheezing Gastrointestinal: (-) abdominal pain, (-) nausea, (-) vomiting, (-) diarrhea Genitourinary: (+) urinary urgency Musculoskeletal: (-) falls, (-) balance difficulty Skin: (+) dry skin Neurological: (-) dizziness Psychiatric: (-) depressed mood, (-) anhedonia, (-) anxiety PE: GENERAL: NAD, alert and oriented. SKIN: Dry skin noted on feet, otherwise unremarkable, no rash or skin lesions. HEAD: Normocephalic. EYES: PERRLA, EOMI, conjunctiva clear. EARS: External ears normal, canals clear, TM's normal. NOSE/SINUSES: Nares normal. Septum midline. OROPHARYNX: Lips, mucosa, and tongue normal, good dentition. No oral lesions noted. NECK: Supple, no lymphadenopathy, normal thyroid, no carotid bruits. LUNGS: Clear to auscultation bilaterally, no wheezes/rhonchi/rales. HEART: Regular rate and rhythm, no murmurs. No ectopy. ABD: Soft, nontender. no masses. EXTREMITIES: Normal, no deformities, no skin discoloration, no edema. Bunion noted on both feet. Pulses intact, monofilament sensation intact. NEURO: Awake, alert and oriented x3, cranial nerves II-XII grossly intact, normal gait, no involuntary motions. Assessment and Plan: 1. Medicare annual wellness visit, subsequent (Z00.00) - Completed comprehensive review of systems and physical examination. - Discussed lifestyle habits, including diet, exercise (more content not included)... [facility] 04-21-2025 History of Presen t illness Narrative Images from the original note were not included. Courtney James is a 89 year old female here for a Medicare wellness visit. Medicare Health Risk Assessment General Health Very good. Exercise: Minutes/Day Not regularly but does stairs daily Exercise: Days/Week NA Alcohol: Daily Use none Alcohol: Drinks/Day no Alcohol: 6 or more drinks no Feel off balance none Concerns: Teeth/Dentures Uses dentures. Concerns: Sexual function none Troubled by feelings no Frequency: Eating healthy diet Feels her diet is healthy ADLs requiring help Does her own ADLS Safety precautions in home/vehicle yes Smoke, vape, chews tobacco no Difficulty hearing no Difficulty seeing no Current Providers Specialists: I have reviewed specialist-related care of the patient in the medical record. Current care team: Patient Care Team: Earl Romero MD as PCP - General (Family Medicine) Raina Chacon APRN.CNP as Store Assistant (Family Medicine) Kaya Conte APRN.CNP as Store Assistant (Family Medicine) Outside specialists seen: [facility], [facility]-justice professor Dr. Jara: DERM Medical/Family history review Reviewed and updated problem list, medical/surgical/family/social history, medications, and allergies. Opioid use review Opioid Medications (last 90 days) No data to display Anxiety/Depression screening Recommendation: no further intervention at this time Cognitive screening Mini Cog Score: 3 Cognitive screening reviewed and No further action needed (score 3-5). Functional Observation Was the patient's Timed Up & Go test unsteady or >= 12 seconds? No Advance Care Planning Surrogate decision maker and/or advance care plan documented Measurements BP 128/60 Pulse 109 Ht 153 cm (5' 0.24) Wt 56.9 kg (125 lb 6.4 oz) SpO2 97% BMI 24.30 kg/m Vision Screening: Follows with optometry/ophthalmology ADDITIONAL INFO: Annual Wellness Exam: - No regular exercise; stays active by walking around her property and gardening. - Denies alcohol consumption; occasionally drinks soda. - Reports a healthy diet. - Denies balance issues or falls. - Wears dentures; reports they are loose due to gum shrinkage. - Denies concerns with sexual functioning. - Denies feeling down, depressed, or hopeless; denies loss of interest or pleasure in activities. - Denies feeling nervous, anxious, or on edge; denies inability to control worrying. - Denies issues with hearing or vision; sees an eye doctor annually at the [facility]. - Denies issues with ears, throat, or neck. - Denies cough, wheezing, chest pain, or palpitations. - Denies edema in legs. - Denies current nausea, vomiting, or diarrhea. - Reports dry skin on feet; uses moisturizer. - Has a medical living will; daughter Sheri is in charge of healthcare decisions. Diabetes Mellitus: - Recent A1c was 6.8%. - Denies seeing a manager of learning. Hypothyroidism: - Taking levothyroxine. Skin Cancer: - History of skin cancer on the nose; underwent Mohs procedure with skin grafting. - Follows up with rooming house inspector Rickey Jara. Vertigo: - Occasional dizziness when turning from right to left side in bed; last episode approximately five months ago. ROS: Eyes: (-) visual disturbance Ears/Nose/Mouth/Throat: (+) loose dentures, (-) hearing loss Neck: (-) neck pain Cardiovascular: (-) chest pain, (-) palpitations, (-) syncope, (-) peripheral edema Respiratory: (-) cough, (-) wheezing Gastrointestinal: (-) abdominal pain, (-) nausea, (-) vomiting, (-) diarrhea Genitourinary: (+) urinary urgency Musculoskeletal: (-) falls, (-) balance difficulty Skin: (+) dry skin Neurological: (-) dizziness Psychiatric: (-) depressed mood, (-) anhedonia, (-) anxiety PE: GENERAL: NAD, alert and oriented. SKIN: Dry skin noted on feet, otherwise unremarkable, no rash or skin lesions. HEAD: Normocephalic. EYES: PERRLA, EOMI, conjunctiva clear. EARS: External ears normal, canals clear, TM's normal. NOSE/SINUSES: Nares normal. Septum midline. OROPHARYNX: Lips, mucosa, and tongue normal, good dentition. No oral lesions noted. NECK: Supple, no lymphadenopathy, normal thyroid, no carotid bruits. LUNGS: Clear to auscultation bilaterally, no wheezes/rhonchi/rales. HEART: Regular rate and rhythm, no murmurs. No ectopy. ABD: Soft, nontender. no masses. EXTREMITIES: Normal, no deformities, no skin discoloration, no edema. Bunion noted on both feet. Pulses intact, monofilament sensation intact. NEURO: Awake, alert and oriented x3, cranial nerves II-XII grossly intact, normal gait, no involuntary motions. Assessment and Plan: 1. Medicare annual wellness visit, subsequent (Z00.00) - Completed comprehensive review of systems and physical examination. - Discussed lifestyle habits, including diet, exercise, and alcohol consumption. - Reviewed recent lab results from 04/17, including hemoglobin A1c at 6.8% and negative microalbuminuria. - Discussed vaccination status; recommended RSV vaccine and annual COVID-19 booster. - Scheduled follow-up in 6 months with labs to be ordered prior. 2. Hypertensive kidney disease with stage 3 chronic kidney disease, unspecified whether stage 3a or 3b CKD (HCC) (I12.9) 3. Type 2 diabetes mellitus with stage 3a chronic kidney disease, without long-term current use of insulin (HCC) (E11.22) - Recent labs show stable kidney function and electrolytes. - Hemoglobin A1c at 6.8%, indicating good glycemic control. - Continue current management; monitor renal function and blood pressure. 4. Hyperlipidemia LDL goal <100 (E78.5) - Continue current lipid-lowering therapy. - Monitor lipid levels regularly. 5. Acquired hypothyroidism (E03.9) - Refill for levothyroxine provided. - Continue current dosage. 6. Osteopenia, senile (M85.80) - Maintain adequate calcium and vitamin D intake. - Encourage weight-bearing exercises as tolerated. 7. Bilateral carotid artery stenosis (I65.23) - No new symptoms reported. - Continue current management; monitor for any changes. - Last checked in 2024. 8. Basal cell carcinoma of face (C44.310) - Follow-up with rooming house inspector Rickey Jara for ongoing management. - No new lesions reported. 9. Screening for depression (Z13.31) 10. Encounter for screening examination for other mental health and behavioral disorders (Z13.39) - Completed depression screening; no signs of depression or anxiety. - Patient reports no feelings of hopelessness or loss of interest in activities. Earl Romero MD Recording using [employer] software for draft documentation of the visit was discussed with the patient/authorized customer retention representative; all questions welcomed and answered. Patient/authorized customer retention representative agreed to proceed documented in this encounter [facility] 01-20-2025 Telephone encounter Note Last apt 10/17/2024 Next apt 04/21/2024 Patient has been identified by name and date of : Yes Last office visit in this department: 10/17/2024 RX INSTRUCTIONS: Patient aware RX will be sent to pharmacy. No need to notify patient. Patient phones requesting refills as follows: Requested Prescriptions Pending Prescriptions Disp Refills simvastatin (ZOCOR) 20 mg tablet 90 tablet 3 Sig: Take 1 tablet by mouth daily at bedtime. Please review and advise. Carmen Haider [facility] 01-20-2025 Miscellaneous Notes Last apt 10/17/2024 Next apt 04/21/2024 Patient has been identified by name and date of : Yes Last office visit in this department: 10/17/2024 RX INSTRUCTIONS: Patient aware RX will be sent to pharmacy. No need to notify patient. Patient phones requesting refills as follows: Requested Prescriptions Pending Prescriptions Disp Refills simvastatin (ZOCOR) 20 mg tablet 90 tablet 3 Sig: Take 1 tablet by mouth daily at bedtime. Please review and advise. Carmen Haider documented in this encounter [facility] 01-09-2025 Telephone encounter Note Last apt 10/17/2024 Patient has been identified by name and date of : Yes Last office visit in this department: 10/17/2024 RX INSTRUCTIONS: Patient aware RX will be sent to pharmacy. No need to notify patient. Patient phones requesting refills as follows: Requested Prescriptions Pending Prescriptions Disp Refills amLODIPine (NORVASC) 5 mg tablet 90 tablet 3 Sig: Take 1 tablet by mouth once daily. Please review and advise. Carmen Haider [facility] 01-09-2025 Miscellaneous Notes Last apt 10/17/2024 Patient has been identified by name and date of : Yes Last office visit in this department: 10/17/2024 RX INSTRUCTIONS: Patient aware RX will be sent to pharmacy. No need to notify patient. Patient phones requesting refills as follows: Requested Prescriptions Pending Prescriptions Disp Refills amLODIPine (NORVASC) 5 mg tablet 90 tablet 3 Sig: Take 1 tablet by mouth once daily. Please review and advise. Carmen Haider documented in this encounter [facility] 12-31-2024 Telephone encounter Note Pt returned the call and notified of results. [facility] 12-31-2024 Miscellaneous Notes Pt returned the call and notified of results. Message left for return call. Kendra Quiros MA ----- Message from Earl Romero MD sent at 12/31/2024 3:15 PM EST ----- Let her know carotid doppler is unchanged documented in this encounter [facility] 12-31-2024 Telephone encounter Note Message left for return call. Kendra Quiros MA [facility] 12-31-2024 Telephone encounter Note ----- Message from Earl Romero MD sent at 12/31/2024 3:15 PM EST ----- Let her know carotid doppler is unchanged [facility] 11-06-2024 Telephone encounter Note Pt is scheduled. [facility] 11-06-2024 Miscellaneous Notes Pt is scheduled. Please help patient schedule, provider placed order. Isatu Mcgrath MA November 06, 2024 11:27 AM Pt calling and she was seen recently and has decided to have an US of the carotid arteries rechecked. Please advise pt. Tabby Foster LPN documented in this encounter [facility] 11-06-2024 Telephone encounter Note Please help patient schedule, provider placed order. Isatu Mcgrath MA November 06, 2024 11:27 AM [facility] 11-06-2024 Telephone encounter Note Pt calling and she was seen recently and has decided to have an US of the carotid arteries rechecked. Please advise pt. Tabby Foster LPN [facility] 10-21-2024 Telephone encounter Note Patient was made aware of the results. Patient verbalizes understanding. Isatu Mcgrath Ma [facility] 10-21-2024 Miscellaneous Notes Patient was made aware of the results. Patient verbalizes understanding. Isatu Mcgrath Ma Let her know her mammogram was ok. documented in this encounter [facility] 10-21-2024 Telephone encounter Note Let her know her mammogram was ok. [facility] 10-21-2024 Note HNO ID: [id number] Author: KENDRA QUIROS MA Service: ? Author Type: Packing Machine Inspector Type: Progress Notes Filed: 10/21/2024 14:53 Note Text: Scan on 10/21/2024 12:33 PM by ProviderDarrion PA-C: Mammography [facility] 10-21-2024 History of Presen t illness Narrative Scan on 10/21/2024 12:33 PM by ProviderDarrion PA-C: Mammography documented in this encounter [facility] 10-20-2024 Telephone encounter Note Prescription Refill Information The patient has been identified by name and date of : Yes Caregiver verified no other encounters exist for this prescription request: Yes Caregiver confirmed with patient/requestor that no other refills are due, in the near future, with this provider at this time: Yes The last office visit in the department: 10/17/2024 Does the patient have a future office visit with this provider/department: Yes 04/21/2025 Requested Prescriptions Pending Prescriptions Disp Refills blood sugar diagnostic (BLOOD GLUCOSE TEST) test strip 100 Strip 11 Sig: Test blood sugar(s) 1 times daily. Dx: 250.00 , E11.22. Insulin: No Patricia Tobin October 20, 2024 1:17 PM [facility] 10-20-2024 Miscellaneous Notes Prescription Refill Information The patient has been identified by name and date of : Yes Caregiver verified no other encounters exist for this prescription request: Yes Caregiver confirmed with patient/requestor that no other refills are due, in the near future, with this provider at this time: Yes The last office visit in the department: 10/17/2024 Does the patient have a future office visit with this provider/department: Yes 04/21/2025 Requested Prescriptions Pending Prescriptions Disp Refills blood sugar diagnostic (BLOOD GLUCOSE TEST) test strip 100 Strip 11 Sig: Test blood sugar(s) 1 times daily. Dx: 250.00 , E11.22. Insulin: No Patricia Tobin October 20, 2024 1:17 PM documented in this encounter [facility] 10-17-2024 Note HNO ID: [id number] Author: EARL ROMERO MD Service: ? Author Type: Physician Type: Progress Notes Filed: 10/17/2024 13:59 Note Text: Patient presents with: 6 Month Exam HPI: Patient presents today for office visit for routine 6 month follow up. HLD: No myalgias Continues on Simvastatin 20 mg daily. THYROID: Continues on Levothyroxine 50 mcg daily. No energy, hair or skin changes. HTN: Continues on Amlodipine 5 mg daily. Monitors BP. Denies chest pain and shortness of breath. No headaches. Intermittent lightheadedness. Denies palpitations or syncope. No edema. DM: sugars are better. Discussed pros and cons of meds. Given her age. Saw Ashley Podlogar on 10/01/24 See notes: Patient presents with: Dizziness: Was sick about a week ago with nausea and vomiting and diarrhea. SUBJECTIVE: This is a 88 year old that is here today for Above Complaints.. A week ago had some dizziness, nausea, vomiting and diarrhea after eating some pizza and applesauce. The nausea, vomiting and diarrhea have resolved but has had some lightheadedness the last week. Some better today. Reports does have pills for motion sickness pills but she has not taken these to see if that would help. Slight headache. Denies vision changes, fevers, chills, sore throat, nasal congestion, rhinorrhea, SOB, dyspnea, chest pain, abdominal pain, constipation, slurred speech, facial drooping, extremity numbness, tingling or weakness Latest Ref Rng 10/01/2024 10/10/2024 WBC 3.70 - 11.00 k/uL 6.98 RBC 3.90 - 5.20 m/uL 4.29 Hemoglobin 11.5 - 15.5 g/dL 13.2 Hematocrit 36.0 - 46.0 % 39.3 MCV 80.0 - 100.0 fL 91.6 MCH 26.0 - 34.0 pg 30.8 MCHC 30.5 - 36.0 g/dL 33.6 RDW-CV 11.5 - 15.0 % 14.0 Platelet Count 150 - 400 k/uL 237 MPV 9.0 - 12.7 fL 10.8 Neut% % 59.1 Abs Neut (ANC) 1.45 - 7.50 k/uL 4.12 Lymph% % 29.2 Abs Lymph 1.00 - 4.00 k/uL 2.04 [place]% % 9.6 Abs [place] <0.87 k/uL 0.67 Eosin% % 1.4 Abs Eosin <0.46 k/uL 0.10 Baso% % 0.4 Abs Baso <0.11 k/uL 0.03 Immature Gran % % 0.3 IMMATURE GRANS (ABS) <0.10 k/uL <0.03 NRBC /100 WBC 0.0 Absolute nRBC <0.01 k/uL <0.01 DTYPE Auto Protein, Total 6.3 - 8.0 g/dL 7.6 Albumin 3.9 - 4.9 g/dL 4.3 Calcium 8.5 - 10.2 mg/dL 9.9 Bilirubin, Total 0.2 - 1.3 mg/dL 0.4 Alkaline Phosphatase 34 - 123 U/L 72 AST 13 - 35 U/L 25 ALT 7 - 38 U/L 18 Glucose 74 - 99 mg/dL 105 (H) BUN 7 - 21 mg/dL 21 Creatinine 0.58 - 0.96 mg/dL 1.19 (H) Sodium 136 - 144 mmol/L 136 Potassium 3.7 - 5.1 mmol/L 4.1 Chloride 98 - 107 mmol/L 100 CO2 22 - 30 mmol/L 23 Anion Gap 8 - 15 mmol/L 13 eGFR >=60 mL/min/1.73m? 45 (L) Cholesterol, Total <200 mg/dL 151 Triglyceride <150 mg/dL 128 HDL Cholesterol >39 mg/dL 65 Non HDL Cholesterol <130 mg/dL 86 Fasting Time hrs 12 VLDL Cholesterol <30 mg/dL 26 TC:HDL Ratio <5.10 2.32 LDL Cholesterol <100 mg/dL 60 LDL:HDL Ratio <2.54 0.92 Hemoglobin A1C 4.3 - 5.6 % 6.6 (H) Estimated Average Glucose mg/dL 143 TSH 0.270 - 4.200 mIU/L 1.110 Legend: (H) High (L) Low MEDICATIONS: Current Outpatient Medications Medication Sig levothyroxine (SYNTHROID) 50 mcg tablet Take 1 tablet by mouth once daily. Take on empty stomach. For thyroid. simvastatin (ZOCOR) 20 mg tablet Take 1 tablet by mouth daily at bedtime. benzonatate (TESSALON PERLES) 100 mg capsule Take 1 capsule by mouth three times a day as needed. meclizine (ANTIVERT) 12.5 mg tab Take 1 tablet by mouth every 6 hours as needed (dizziness). amLODIPine (NORVASC) 5 mg tablet Take 1 tablet by mouth once daily. blood sugar diagnostic (BLOOD GLUCOSE TEST) test strip Test blood sugar(s) 1 times daily. Dx: 250.00 , E11.22. Insulin: No ondansetron orally disintegrating (ZOFRAN ODT) 4 mg disintegrating tablet Take 1 tablet by mouth every 6 hours as needed for Nausea/Vomiting for up to 10 doses. Lancets (COMFORT LANCETS) lancets 1 Each once daily. TEST ONCE DAILY Cholecalciferol, Vitamin D3, 2,000 unit cap Take 1 capsule by mouth once daily. No current facility-administered medications for this visit. 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 Diarrhea Essential hypertension, benign 11/28/2011 Family history of malignant neoplasm of gastrointestinal tract Hyperlipidemia 10/31/2011 Hyperlipidemia LDL goal <100 05/15/2016 Osteopenia, senile 07/05/2017 Type II or unspecified type diabetes mellitus with renal manifestations, not stated as uncontrolled(250.40) 11/06/2013 250.40 PAST SURGICAL HISTORY Procedure Laterality Date COLONOSCOPY W/BIOPSY SINGLE/MULTIPLE 08/23/10 PAST SURGICAL HISTORY OF cancer removed from right side of nose FAMILY HISTORY Problem Relation Age of Onset Breast Cancer Mother STOMACH Heart Mother Diabetes (more content not included)... [facility] 10-17-2024 History of Presen t illness Narrative Patient presents with: 6 Month Exam HPI: Patient presents today for office visit for routine 6 month follow up. HLD: No myalgias Continues on Simvastatin 20 mg daily. THYROID: Continues on Levothyroxine 50 mcg daily. No energy, hair or skin changes. HTN: Continues on Amlodipine 5 mg daily. Monitors BP. Denies chest pain and shortness of breath. No headaches. Intermittent lightheadedness. Denies palpitations or syncope. No edema. DM: sugars are better. Discussed pros and cons of meds. Given her age. Saw Ashley Podlogar on 10/01/24 See notes: Patient presents with: Dizziness: Was sick about a week ago with nausea and vomiting and diarrhea. SUBJECTIVE: This is a 88 year old that is here today for Above Complaints.. A week ago had some dizziness, nausea, vomiting and diarrhea after eating some pizza and applesauce. The nausea, vomiting and diarrhea have resolved but has had some lightheadedness the last week. Some better today. Reports does have pills for motion sickness pills but she has not taken these to see if that would help. Slight headache. Denies vision changes, fevers, chills, sore throat, nasal congestion, rhinorrhea, SOB, dyspnea, chest pain, abdominal pain, constipation, slurred speech, facial drooping, extremity numbness, tingling or weakness Latest Ref Rng 10/01/2024 10/10/2024 WBC 3.70 - 11.00 k/uL 6.98 RBC 3.90 - 5.20 m/uL 4.29 Hemoglobin 11.5 - 15.5 g/dL 13.2 Hematocrit 36.0 - 46.0 % 39.3 MCV 80.0 - 100.0 fL 91.6 MCH 26.0 - 34.0 pg 30.8 MCHC 30.5 - 36.0 g/dL 33.6 RDW-CV 11.5 - 15.0 % 14.0 Platelet Count 150 - 400 k/uL 237 MPV 9.0 - 12.7 fL 10.8 Neut% % 59.1 Abs Neut (ANC) 1.45 - 7.50 k/uL 4.12 Lymph% % 29.2 Abs Lymph 1.00 - 4.00 k/uL 2.04 [place]% % 9.6 Abs [place] <0.87 k/uL 0.67 Eosin% % 1.4 Abs Eosin <0.46 k/uL 0.10 Baso% % 0.4 Abs Baso <0.11 k/uL 0.03 Immature Gran % % 0.3 IMMATURE GRANS (ABS) <0.10 k/uL <0.03 NRBC /100 WBC 0.0 Absolute nRBC <0.01 k/uL <0.01 DTYPE Auto Protein, Total 6.3 - 8.0 g/dL 7.6 Albumin 3.9 - 4.9 g/dL 4.3 Calcium 8.5 - 10.2 mg/dL 9.9 Bilirubin, Total 0.2 - 1.3 mg/dL 0.4 Alkaline Phosphatase 34 - 123 U/L 72 AST 13 - 35 U/L 25 ALT 7 - 38 U/L 18 Glucose 74 - 99 mg/dL 105 (H) BUN 7 - 21 mg/dL 21 Creatinine 0.58 - 0.96 mg/dL 1.19 (H) Sodium 136 - 144 mmol/L 136 Potassium 3.7 - 5.1 mmol/L 4.1 Chloride 98 - 107 mmol/L 100 CO2 22 - 30 mmol/L 23 Anion Gap 8 - 15 mmol/L 13 eGFR >=60 mL/min/1.73m 45 (L) Cholesterol, Total <200 mg/dL 151 Triglyceride <150 mg/dL 128 HDL Cholesterol >39 mg/dL 65 Non HDL Cholesterol <130 mg/dL 86 Fasting Time hrs 12 VLDL Cholesterol <30 mg/dL 26 TC:HDL Ratio <5.10 2.32 LDL Cholesterol <100 mg/dL 60 LDL:HDL Ratio <2.54 0.92 Hemoglobin A1C 4.3 - 5.6 % 6.6 (H) Estimated Average Glucose mg/dL 143 TSH 0.270 - 4.200 mIU/L 1.110 Legend: (H) High (L) Low MEDICATIONS: Current Outpatient Medications Medication Sig levothyroxine (SYNTHROID) 50 mcg tablet Take 1 tablet by mouth once daily. Take on empty stomach. For thyroid. simvastatin (ZOCOR) 20 mg tablet Take 1 tablet by mouth daily at bedtime. benzonatate (TESSALON PERLES) 100 mg capsule Take 1 capsule by mouth three times a day as needed. meclizine (ANTIVERT) 12.5 mg tab Take 1 tablet by mouth every 6 hours as needed (dizziness). amLODIPine (NORVASC) 5 mg tablet Take 1 tablet by mouth once daily. blood sugar diagnostic (BLOOD GLUCOSE TEST) test strip Test blood sugar(s) 1 times daily. Dx: 250.00 , E11.22. Insulin: No ondansetron orally disintegrating (ZOFRAN ODT) 4 mg disintegrating tablet Take 1 tablet by mouth every 6 hours as needed for Nausea/Vomiting for up to 10 doses. Lancets (COMFORT LANCETS) lancets 1 Each once daily. TEST ONCE DAILY Cholecalciferol, Vitamin D3, 2,000 unit cap Take 1 capsule by mouth once daily. No current facility-administered medications for this visit. 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 Diarrhea Essential hypertension, benign 11/28/2011 Family history of malignant neoplasm of gastrointestinal tract Hyperlipidemia 10/31/2011 Hyperlipidemia LDL goal <100 05/15/2016 Osteopenia, senile 07/05/2017 Type II or unspecified type diabetes mellitus with renal manifestations, not stated as uncontrolled(250.40) 11/06/2013 250.40 PAST SURGICAL HISTORY Procedure Laterality Date COLONOSCOPY W/BIOPSY SINGLE/MULTIPLE 08/23/10 PAST SURGICAL HISTORY OF cancer removed from right side of nose FAMILY HISTORY Problem Relation Age of Onset Breast Cancer Mother STOMACH Heart Mother Diabetes Mother other (polycystic kidney disease) Son Hypertension Sister Ischemic Heart Disease Sister Breast Cancer Sister Heart Brother Colon Cancer Brother other (CVA) Son 58 Social History Tobacco Use Smoking status: Never Smokeless tobacco: Never Vaping Use Vaping status: Never Used Substance Use Topics Alcohol use: Yes Comment: rare Drug use: No Reviewed current medications, allergies, past medical history, surgical history, family history and social history today. REVIEW OF SYSTEMS All other reviewed and negative other than HPI. HEALTH MAINTENANCE: Reviewed health maintenance issues today and recommended the following in detail. Depression Screening Never done Anxiety Screening Never done RSV Vaccine(1 - 1-dose 75+ series) Never done Advance Directive Discussion-daughter Sheri Signs. Dilated Retinal Exam -goes annually. Influenza Vaccine(1) due on 07/20/2024 Covid-19 Vaccine( season) due on 07/20/2024 Urine Albumin:Creatinine Ratio due on 11/15/2024 VITALS: BP 130/66 Pulse 111 Ht 158.8 cm (5' 2.5) Wt 56.7 kg (125 lb) BMI 22.50 kg/m Last 4 Encounter Wt Readings: Date: Wt: 10/01/2024 55.4 kg (122 lb 2.2 oz) 04/29/2024 54 kg (119 lb) 04/17/2024 54.4 kg (120 lb) 04/15/2024 54.4 kg (120 lb) PHYSICAL EXAMINATION: General appearance: Well appearing, alert, in no acute distress, well-hydrated, well nourished. Skin: Skin color, texture, turgor normal, no suspicious rashes or lesions Head: Normocephalic, no masses, lesions, tenderness or abnormalities Eyes: Anicteric sclera. Pupils are equally round and reactive to light. Extraocular movements are intact. Lungs: Lungs clear to auscultation. No wheezing, rhonchi, rales Heart: RRR without murmur, gallop, or rubs. No ectopy Abdomen: Normal abdominal exam, Abdomen soft, non-tender. Bowel sounds normal. No masses, organomegaly Extremities: No deformities, edema, skin discoloration, clubbing or cyanosis. Good capillary refill. ASSESSMENT/PLAN: 1. Acquired hypothyroidism - ICD9: 244.9, ICD10: E03.9 (primary diagnosis) Continue current medications. Notify us if any difficulties are noted. 2. Type 2 diabetes mellitus with stage 3a chronic kidney disease, without long-term current use of insulin (HCC) - ICD9: 250.40, 585.3, ICD10: E11.22, N18.31 - continue meds. - ALBUMIN/CREATININE RATIO, URINE - BASIC METABOLIC PANEL - HEMOGLOBIN A1C 3. Hypertensive kidney disease with stage 3 chronic kidney disease, unspecified whether stage 3a or 3b CKD (HCC) - ICD9: 403.90, 585.3, ICD10: I12.9, N18.30 - follow labs. 4. Hyperlipidemia LDL goal <100 - ICD9: 272.4, ICD10: E78.5 - stable. 5. Bilateral carotid artery stenosis - ICD9: 433.10, 433.30, ICD10: I65.23 -recommend recheck. Wants to consider whether or not she gets it. 6. Basal cell carcinoma of face - ICD9: 173.31, ICD10: C44.310 - sees Dr Jara 7. Screening for depression - ICD9: V79.0, ICD10: Z13.31 - DEPRESSION SCREENING 8. Encounter for screening examination for other mental health and behavioral disorders - ICD9: V79.8, ICD10: Z13.39 - ANXIETY SCREENING Earl Romero MD documented in this encounter [facility] 10-17-2024 Evaluation note Diagnosis Acquired hypothyroidism- Primary Unspecified hypothyroidism Type 2 diabetes mellitus with stage 3a chronic kidney disease, without long-term current use of insulin (HCC) Hypertensive kidney disease with stage 3 chronic kidney disease, unspecified whether stage 3a or 3b CKD (HCC) Hyperlipidemia LDL goal <100 Other and unspecified hyperlipidemia Bilateral carotid artery stenosis Occlusion and stenosis of carotid artery without mention of cerebral infarction Basal cell carcinoma of face Basal cell carcinoma of skin of other and unspecified parts of face Screening for depression Encounter for screening examination for other mental health and behavioral disorders documented in this encounter [facility]11-18-2024 Telephone encounter Note* Telephone Encounter - Nick Castelan LPN - 10/06/2024 6:08 PM EST Patient notified. [facility]11-18-2024 Miscellaneous Notes* Telephone Encounter - Nick Castelan LPN - 10/06/2024 6:08 PM EST Patient notified. * Telephone Encounter - Nick Castelan LPN - 10/06/2024 1:28 PM EST Faxed as requested. * Telephone Encounter - Earl Romero MD - 10/06/2024 11:30 AM EST ordered * Telephone Encounter - Lauren Smith LPN - 10/06/2024 11:22 AM EST Patient calling asking for an order to have yearly mamm, last done 10/18/2023. Patient wants to have done at [facility]. Pending order to file. Please notify patient when the order is faxed so she can schedule her appt. Please advise [facility] Telephone encounter Note * Telephone Encounter - Nick Castelan LPN - 10/06/2024 1:28 PM EST Faxed as requested. [facility]11-18-2024 Telephone encounter Note* Telephone Encounter - Earl Romero MD - 10/06/2024 11:30 AM EST ordered [facility]11-18-2024 Telephone encounter Note* Telephone Encounter - Lauren Smith LPN - 10/06/2024 11:22 AM EST Patient calling asking for an order to have yearly mamm, last done 10/18/2023. Patient wants to have done at [facility]. Pending order to file. Please notify patient when the order is faxed so she can schedule her appt. Please advise [facility]11-13-2024 NoteHNO ID: [id number] Author: ASHLEY CHAIREZ APRN.JEWELRY INSPECTOR Service: ? Author Type: Nurse Practitioner Type: Progress Notes Filed: 10/01/2024 14:40 Note Text: [place] 10/01/2024 Patient presents with: Dizziness: Was sick about a week ago with nausea and vomiting and diarrhea. SUBJECTIVE: This is a 88 year old that is here today for Above Complaints.. A week ago had some dizziness, nausea, vomiting and diarrhea after eating some pizza and applesauce. The nausea, vomiting and diarrhea have resolved but has had some lightheadedness the last week. Some better today. Reports does have pills for motion sickness pills but she has not taken these to see if that would help. Slight headache. Denies vision changes, fevers, chills, sore throat, nasal congestion, rhinorrhea, SOB, dyspnea, chest pain, abdominal pain, constipation, slurred speech, facial drooping, extremity numbness, tingling or weakness PAST MEDICAL HISTORY Diagnosis Date Acquired hypothyroidism 06/15/2015 Benign hypertensive heart disease without heart failure Benign neoplasm of colon Diarrhea Essential hypertension, benign 11/28/2011 Family history of malignant neoplasm of gastrointestinal tract Hyperlipidemia 10/31/2011 Hyperlipidemia LDL goal <100 05/15/2016 Osteopenia, senile 07/05/2017 Type II or unspecified type diabetes mellitus with renal manifestations, not stated as uncontrolled(250.40) 11/06/2013 250.40 ALLERGIES Accupril [Quinapril Hcl], Codeine, and Lisinopril MEDICATIONS Current Outpatient Medications Medication Sig levothyroxine (SYNTHROID) 50 mcg tablet Take 1 tablet by mouth once daily. Take on empty stomach. For thyroid. simvastatin (ZOCOR) 20 mg tablet Take 1 tablet by mouth daily at bedtime. benzonatate (TESSALON PERLES) 100 mg capsule Take 1 capsule by mouth three times a day as needed. meclizine (ANTIVERT) 12.5 mg tab Take 1 tablet by mouth every 6 hours as needed (dizziness). amLODIPine (NORVASC) 5 mg tablet Take 1 tablet by mouth once daily. blood sugar diagnostic (BLOOD GLUCOSE TEST) test strip Test blood sugar(s) 1 times daily. Dx: 250.00 , E11.22. Insulin: No ondansetron orally disintegrating (ZOFRAN ODT) 4 mg disintegrating tablet Take 1 tablet by mouth every 6 hours as needed for Nausea/Vomiting for up to 10 doses. Lancets (COMFORT LANCETS) lancets 1 Each once daily. TEST ONCE DAILY Cholecalciferol, Vitamin D3, 2,000 unit cap Take 1 capsule by mouth once daily. No current facility-administered medications for this visit. Medications and allergies reviewed by this provider. SOCIAL HISTORY Social History Tobacco Use Smoking status: Never Smokeless tobacco: Never Vaping Use Vaping status: Never Used Substance Use Topics Alcohol use: Yes Comment: rare Drug use: No REVIEW OF SYSTEMS All other reviewed and negative other than HPI. OBJECTIVE: BP 122/70 Pulse 89 Temp 36.6 ?C (97.8 ?F) Resp 16 Wt 55.4 kg (122 lb 2.2 oz) SpO2 97% BMI 21.98 kg/m? . Vital signs reviewed by this provider. APPEARANCE Well appearing, alert, in no acute distress, well-hydrated, well nourished. EYES PERRLA, conjunctiva and sclera normal. EARS External ears normal, canals clear NECK Supple, no adenopathy; thyroid symmetric, normal size, no bruits HEART RRR with normal S1 and S2, no murmurs, no gallops, no JVD appreciated LUNG clear to auscultation. No wheezes, rhonchi or rales EXTREMITIES Extremities normal, No deformities, No skin discoloration, and No edema NEURO Awake, alert and oriented x 3, Cranial nerves II-XII grossly intact, Reflexes symmetrical, Normal gait, No involuntary motions., and negative findings: mental status intact, normal gait Romberg negative, muscle tone normal, muscle strength normal, rapid alternating movements normal, finger to nose normal, sensation to light touch and pinprick normal, reflexes normal and symmetric, plantar response downgoing bilaterally SKIN Skin color, texture, turgor normal, no suspicious rashes or lesions to exposed skin Depression Screening Never done Anxiety Screening Never done Advance Directive Discussion due on 11/19/2023 Dilated Retinal Exam due on 06/13/2024 Influenza Vaccine(1) due on 07/20/2024 Covid-19 Vaccine( season) due on 07/20/2024 RSV Vaccine(1 - 1-dose 75+ series) due on 10/08/2024 HbA1C due on 10/11/2024 Urine Albumin:Creatinine Ratio due on 11/15/2024 LDL Cholesterol due on 11/15/2024 Diabetic Foot Exam due on 04/15/2025 DTaP,Tdap,Td Vaccine(2 - Td or Tdap) due on 05/29/2033 Bone Density Screening Completed Shingrix Vaccine Completed Pneumococcal Vaccine: 65+ Completed HPV Vaccine Aged Out ASSESSMENT/PLAN: 1. Lightheadedness - ICD9: 780.4, ICD10: R42 (primary diagnosis) - consider electrolyte imbalance vs anemia vs viral etiology - no red flag symptoms or exam findings - red flag symptoms discussed, verbalizes understanding - COMPLETE BLOOD COUNT AND DIFFERENTIAL - COM (more content not included)...[facility]11-13-2024 History of Present illness Narrative* MauralogarAshley APRN.JEWELRY INSPECTOR - 10/01/2024 11:42 AM EST [place] 10/01/2024 Patient presents with: Dizziness: Was sick about a week ago with nausea and vomiting and diarrhea. SUBJECTIVE: This is a 88 year old that is here today for Above Complaints.. A week ago had some dizziness, nausea, vomiting and diarrhea after eating some pizza and applesauce. The nausea, vomiting and diarrhea have resolved but has had some lightheadedness the last week. Some better today. Reports does have pills for motion sickness pills but she has not taken these to see if that would help. Slight headache. Denies vision changes, fevers, chills, sore throat, nasal congestion, rhinorrhea, SOB, dyspnea, chest pain, abdominal pain, constipation, slurred speech, facial drooping, extremity numbness, tingling or weakness PAST MEDICAL HISTORY Diagnosis Date Acquired hypothyroidism 06/15/2015 Benign hypertensive heart disease without heart failure Benign neoplasm of colon Diarrhea Essential hypertension, benign 11/28/2011 Family history of malignant neoplasm of gastrointestinal tract Hyperlipidemia 10/31/2011 Hyperlipidemia LDL goal <100 05/15/2016 Osteopenia, senile 07/05/2017 Type II or unspecified type diabetes mellitus with renal manifestations, not stated as uncontrolled(250.40) 11/06/2013 250.40 ALLERGIES Accupril [Quinapril Hcl], Codeine, and Lisinopril MEDICATIONS Current Outpatient Medications Medication Sig levothyroxine (SYNTHROID) 50 mcg tablet Take 1 tablet by mouth once daily. Take on empty stomach. For thyroid. simvastatin (ZOCOR) 20 mg tablet Take 1 tablet by mouth daily at bedtime. benzonatate (TESSALON PERLES) 100 mg capsule Take 1 capsule by mouth three times a day as needed. meclizine (ANTIVERT) 12.5 mg tab Take 1 tablet by mouth every 6 hours as needed (dizziness). amLODIPine (NORVASC) 5 mg tablet Take 1 tablet by mouth once daily. blood sugar diagnostic (BLOOD GLUCOSE TEST) test strip Test blood sugar(s) 1 times daily. Dx: 250.00 , E11.22. Insulin: No ondansetron orally disintegrating (ZOFRAN ODT) 4 mg disintegrating tablet Take 1 tablet by mouth every 6 hours as needed for Nausea/Vomiting for up to 10 doses. Lancets (COMFORT LANCETS) lancets 1 Each once daily. TEST ONCE DAILY Cholecalciferol, Vitamin D3, 2,000 unit cap Take 1 capsule by mouth once daily. No current facility-administered medications for this visit. Medications and allergies reviewed by this provider. SOCIAL HISTORY Social History Tobacco Use Smoking status: Never Smokeless tobacco: Never Vaping Use Vaping status: Never Used Substance Use Topics Alcohol use: Yes Comment: rare Drug use: No REVIEW OF SYSTEMS All other reviewed and negative other than HPI. OBJECTIVE: BP 122/70 Pulse 89 Temp 36.6 C (97.8 F) Resp 16 Wt 55.4 kg (122 lb 2.2 oz) SpO2 97% BMI21.98 kg/m . Vital signs reviewed by this provider. APPEARANCE Well appearing, alert, in no acute distress, well-hydrated, well nourished. EYES PERRLA, conjunctiva and sclera normal. EARS External ears normal, canals clear NECK Supple, no adenopathy; thyroid symmetric, normal size, no bruits HEART RRR with normal S1 and S2, no murmurs, no gallops, no JVD appreciated LUNG clear to auscultation. No wheezes, rhonchi or rales EXTREMITIES Extremities normal, No deformities, No skin discoloration, and No edema NEURO Awake, alert and oriented x 3, Cranial nerves II-XII grossly intact, Reflexes symmetrical, Normal gait, No involuntary motions., and negative findings: mental status intact, normal gait Rombergnegative, muscle tone normal, muscle strength normal, rapid alternating movements normal, finger tonose normal, sensation to light touch and pinprick normal, reflexes normal and symmetric, plantar response downgoing bilaterally SKIN Skin color, texture, turgor normal, no suspicious rashes or lesions to exposed skin Depression Screening Never done Anxiety Screening Never done Advance Directive Discussion due on 11/19/2023 Dilated Retinal Exam due on 06/13/2024 Influenza Vaccine(1) due on 07/20/2024 Covid-19 Vaccine( season) due on 07/20/2024 RSV Vaccine(1 - 1-dose 75+ series) due on 10/08/2024 HbA1C due on 10/11/2024 Urine Albumin:Creatinine Ratio due on 11/15/2024 LDL Cholesterol due on 11/15/2024 Diabetic Foot Exam due on 04/15/2025 DTaP,Tdap,Td Vaccine(2 - Td or Tdap) due on 05/29/2033 Bone Density Screening Completed Shingrix Vaccine Completed Pneumococcal Vaccine: 65+ Completed HPV Vaccine Aged Out ASSESSMENT/PLAN: 1. Lightheadedness - ICD9: 780.4, ICD10: R42 (primary diagnosis) - consider electrolyte imbalance vs anemia vs viral etiology - no red flag symptoms or exam findings - red flag symptoms discussed, verbalizes understanding - COMPLETE BLOOD COUNT AND DIFFERENTIAL - COMPREHENSIVE METABOLIC PANEL - follow-up if symptoms fail to improve to ER with red 2. Headache, unspecified headache type - ICD9: 784.0, ICD10: R51.9 - may use OTC pain reliever as directed on packaging - no red flag symptoms or exam findings - red flag symptoms dicussed, verbalizes understanding - follow-up if fail to improve to ER with red flag symptoms Ashley Chairez APRN.JEWELRY INSPECTOR Prescription instructions reviewed with patient as applicable. Patient advised if symptoms do not improve or if symptoms worsen sooner, to contact their primary care physician. Potential red flag symptoms discussed with the patient. Reviewed appropriate action plan to take if red flag symptoms occur. Patient agreeable to treatment plan. Medical Decision Making: Problems: Moderate: New problem with uncertain prognosis Data: Unique test(s) ordered: 1 Risk: Moderate: Moderate risk from testing/treatment Medical Decision Making Level: 4 - Moderate [facility] Tele[facility] encounter Note * Telephone Encounter - Tabby Foster LPN - 09/30/2024 3:18 PM EST Pt calls and states the following: Light headed LIGHT HEADED: Yes , but denies faint, woozy, weak upon standing VERTIGO: No SEVERITY: mild , feels slightly light headed, but walking normally ONSET: x 3 days ago AGGRAVATING FACTORS: no HEART RATE: not available CAUSE: unknown RECURRENT SYMPTOMS: Pt reports 1 week ago 09-20-24 pt had vomiting, diarrhea for several hours and then this stopped DENIES: fever, chest pain, SOB, vomiting, diarrhea, bleeding, urinating fine, drinking fluids, roomspinning, does not feel faint with walking or standing Pt wondering if this has anything to do with DM. Pt's provider/team not available. Pt scheduled with a provider for 10-01-24. Tabby Foster LPN [facility]11-12-2024 Miscellaneous Notes* Telephone Encounter - Tabby Foster LPN - 09/30/2024 3:18 PM EST Pt calls and states the following: Light headed LIGHT HEADED: Yes , but denies faint, woozy, weak upon standing VERTIGO: No SEVERITY: mild , feels slightly light headed, but walking normally ONSET: x 3 days ago AGGRAVATING FACTORS: no HEART RATE: not available CAUSE: unknown RECURRENT SYMPTOMS: Pt reports 1 week ago 09-20-24 pt had vomiting, diarrhea for several hours and then this stopped DENIES: fever, chest pain, SOB, vomiting, diarrhea, bleeding, urinating fine, drinking fluids, roomspinning, does not feel faint with walking or standing Pt wondering if this has anything to do with DM. Pt's provider/team not available. Pt scheduled with a provider for 10-01-24. Tabby Foster LPN [facility] Instructions* Patient Instructions* Kaya Conte APRN.SAUSAGE COOKER - 04/29/2024 11:19 AM EDT 1) DM request for home blood pressure cuff 2) Continue amlodipine 3) Follow up with Dr. Romero in September documented in [facility] History of Present illness Narrative* Kaya Conte APRN.CNS - 04/29/2024 11:12 AM EDT This is a 88 year old female who presents today with: Patient presents with: Cellulitis: Follow up HISTORY OF PRESENT ILLNESS: Courtney James is a 88 year old female. Patient presents with: Cellulitis: Follow up Right upper inner thigh with cellulitis healing. No fever, some chills. Not sure what caused it. 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 Diarrhea Essential hypertension, benign 11/28/2011 Family history of malignant neoplasm of gastrointestinal tract Hyperlipidemia 10/31/2011 Hyperlipidemia LDL goal <100 05/15/2016 Osteopenia, senile 07/05/2017 Type II or unspecified type diabetes mellitus with renal manifestations, not stated as uncontrolled(250.40) 11/06/2013 250.40 PAST SURGICAL HISTORY Procedure Laterality Date COLONOSCOPY W/BIOPSY SINGLE/MULTIPLE 08/23/10 PAST 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 Take on empty stomach. For thyroid. simvastatin (ZOCOR) 20 mg tablet Take 1 tablet by mouth daily at bedtime. meclizine (ANTIVERT) 12.5 mg tab Take 1 tablet by mouth every 6 hours as needed (dizziness). amLODIPine (NORVASC) 5 mg tablet Take 1 tablet by mouth once daily. blood sugar diagnostic (BLOOD GLUCOSE TEST) test strip Test blood sugar(s) 1 times daily. Dx: 250.00 , E11.22. Insulin: No ondansetron orally disintegrating (ZOFRAN ODT) 4 mg disintegrating tablet Take 1 tablet by mouth every 6 hours as needed for Nausea/Vomiting for up to 10 doses. Lancets (COMFORT LANCETS) lancets 1 Each once daily. TEST ONCE DAILY Cholecalciferol, Vitamin D3, 2,000 unit cap Take 1 capsule by mouth once daily. benzonatate (TESSALON PERLES) 100 mg capsule Take 1 capsule by mouth three times a day as needed. No current facility-administered medications for this visit. FAMILY HISTORY Problem Relation Age of Onset Breast Cancer Mother STOMACH Heart Mother Diabetes Mother other (polycystic kidney disease) Son Hypertension Sister Ischemic Heart Disease Sister Breast Cancer Sister Heart Brother Colon Cancer Brother other (CVA) Son 58 Social History Tobacco Use Smoking status: Never Smokeless tobacco: Never Vaping Use Vaping Use: Never used Substance Use Topics Alcohol use: Yes Comment: rare Drug use: No EXAM: BP 152/70 Pulse 86 Resp 16 Wt 54 kg (119 lb) SpO2 98% BMI 21.42 kg/m PHYSICAL EXAM: Physical Exam Vitals reviewed. Constitutional: Appearance: Normal appearance. HENT: Head: Normocephalic. Skin: General: Skin is warm and dry. Coloration: Skin is not jaundiced or pale. Findings: Lesion present. No bruising or erythema. Comments: Right upper thigh, inner aspect with no open area. [place], warm, healed. No itching. Superficial peeling. No itching. Neurological: Mental Status: She is alert. LABS: ASSESSMENT/PLAN: 1. Cellulitis of skin - ICD9: 682.9, ICD10: L03.90 (primary diagnosis) Resolved 2. Primary hypertension - ICD9: 401.9, ICD10: I10 - Controlled; recheck 138/66 - Recommend home blood pressure monitoring, to bring results to next visit - Encouraged sodium restriction, DASH or Mediterranean diet - Recommend regular aerobic exercise - DME SUPPLY OR ACCESSORY, NOS to request a home BP cuff - Continue amlodipine Discussed treatment plan and patient voices understanding. Patient's questions answered appropriately. Medications and potential side effects were discussed and patient voices understanding. Return to the office as scheduled or as needed for worsening/no improvement. Kaya Conte APRN.CNS documented in this [facility] Instructions* Patient Instructions* Kaya Conte APRN.CNS - 04/17/2024 2:49 PM EDT 1) Doxycycline 100 mg 2 x day for 10 days 2) Ice to area if needed for discomfort 3) Follow up in 10 days documented in this encounterT[facility]05[facility]30-[facility] History of Present illness Narrative* Kaya Conte APRN.CNS - 04/17/2024 2:36 PM EDT This is a 88 year old female who presents today with: Patient presents with: Mass: Right side groin. Does spend a lot of time outside. Noticed yesterday. Not painful. HISTORY OF PRESENT ILLNESS: Courtney James is a 88 year old female. Patient presents with: Mass: Right side groin. Does spend a lot of time outside. Noticed yesterday. Not painful. Grieving loss of significant other in November. Right groin red, warm, swollen, and firm. No itching. 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 Diarrhea Essential hypertension, benign 11/28/2011 Family history of malignant neoplasm of gastrointestinal tract Hyperlipidemia 10/31/2011 Hyperlipidemia LDL goal <100 05/15/2016 Osteopenia, senile 07/05/2017 Type II or unspecified type diabetes mellitus with renal manifestations, not stated as uncontrolled(250.40) 11/06/2013 250.40 PAST SURGICAL HISTORY Procedure Laterality Date COLONOSCOPY W/BIOPSY SINGLE/MULTIPLE 08/23/10 PAST 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 Take on empty stomach. For thyroid. simvastatin (ZOCOR) 20 mg tablet Take 1 tablet by mouth daily at bedtime. benzonatate (TESSALON PERLES) 100 mg capsule Take 1 capsule by mouth three times a day as needed. meclizine (ANTIVERT) 12.5 mg tab Take 1 tablet by mouth every 6 hours as needed (dizziness). amLODIPine (NORVASC) 5 mg tablet Take 1 tablet by mouth once daily. blood sugar diagnostic (BLOOD GLUCOSE TEST) test strip Test blood sugar(s) 1 times daily. Dx: 250.00 , E11.22. Insulin: No ondansetron orally disintegrating (ZOFRAN ODT) 4 mg disintegrating tablet Take 1 tablet by mouth every 6 hours as needed for Nausea/Vomiting for up to 10 doses. Lancets (COMFORT LANCETS) lancets 1 Each once daily. TEST ONCE DAILY Cholecalciferol, Vitamin D3, 2,000 unit cap Take 1 capsule by mouth once daily. No current facility-administered medications for this visit. FAMILY HISTORY Problem Relation Age of Onset Breast Cancer Mother STOMACH Heart Mother Diabetes Mother other (polycystic kidney disease) Son Hypertension Sister Ischemic Heart Disease Sister Breast Cancer Sister Heart Brother Colon Cancer Brother other (CVA) Son 58 Social History Tobacco Use Smoking status: Never Smokeless tobacco: Never Vaping Use Vaping Use: Never used Substance Use Topics Alcohol use: Yes Comment: rare Drug use: No EXAM: BP 132/62 Pulse 101 Temp 37.1 C (98.8 F) Wt 54.4 kg (120 lb) SpO2 98% BMI 21.60 kg/m PHYSICAL EXAM: Physical Exam Vitals reviewed. Constitutional: Appearance: Normal appearance. Cardiovascular: Rate and Rhythm: Normal rate and regular rhythm. Pulmonary: Effort: Pulmonary effort is normal. Breath sounds: Normal breath sounds. Skin: Comments: Right upper inner thigh with a firm, raised area with pustules across surface that is painful to touch. Warm, very red, firm, tender to touch. Neurological: Mental Status: She is alert. LABS: CKD Stage III ASSESSMENT/PLAN: 1. Cellulitis of skin - ICD9: 682.9, ICD10: L03.90 - Pustules along surface - DOXYCYCLINE HYCLATE 100 MG TABLET for 10 days Discussed treatment plan and patient voices understanding. Patient's questions answered appropriately. Medications and potential side effects were discussed and patient voices understanding. Return to the office as scheduled or as needed for worsening/no improvement. Kaya Conte APRN.SAUSAGE COOKER documented in this encounterT[facility]05-[facility] Telephone encounter Note * Telephone Encounter - Claire Palacios - 04/16/2024 10:38 AM EDT Patient has been identified by name and date of : Yes Patient phones for refill(s): Requested Prescriptions Pending Prescriptions Disp Refills levothyroxine (SYNTHROID) 50 mcg tablet 90 tablet 3 Sig: Take 1 tablet by mouth once daily. Take on empty stomach. For thyroid. Date of last office visit in primary care: 04/15/2024 Date of next office visit in primary care: 05/13/2024 Please advise. Thank you. Claire Palacios. [facility] Miscellaneous Notes* Telephone Encounter - Claire Palacios - 04/16/2024 10:38 AM EDT Patient has been identified by name and date of : Yes Patient phones for refill(s): Requested Prescriptions Pending Prescriptions Disp Refills levothyroxine (SYNTHROID) 50 mcg tablet 90 tablet 3 Sig: Take 1 tablet by mouth once daily. Take on empty stomach. For thyroid. Date of last office visit in primary care: 04/15/2024 Date of next office visit in primary care: 05/13/2024 Please advise. Thank you. Claire Palacios. documented in this encounterT[facility]05-28-2024 History of Present illness Narrative* Earl Romero MD - 04/15/2024 3:23 PM EDT Patient presents with: 6 Month Exam HPI: Patient presents today for office visit for follow up. Allergies are flaring up. Mentions some sneezing and clearing of throat the last couple of months. Discussed otc meds like claritin. HLD: No myalgias HTN: Monitors BP at home Stable Denies chest pain and shortness of breath Denies headaches and dizziness No palpitations No syncope No edema THYROID: No energy, hair or skin changes Renal function is stable. Latest Ref Rng 04/10/2024 WBC 3.70 - 11.00 k/uL 6.18 RBC 3.90 - 5.20 m/uL 4.19 Hemoglobin 11.5 - 15.5 g/dL 13.2 Hematocrit 36.0 - 46.0 % 39.3 MCV 80.0 - 100.0 fL 93.8 MCH 26.0 - 34.0 pg 31.5 MCHC 30.5 - 36.0 g/dL 33.6 RDW-CV 11.5 - 15.0 % 13.7 Platelet Count 150 - 400 k/uL 229 MPV 9.0 - 12.7 fL 11.0 Neut% % 54.1 Abs Neut (ANC) 1.45 - 7.50 k/uL 3.35 Lymph% % 32.4 Abs Lymph 1.00 - 4.00 k/uL 2.00 [place]% % 10.2 Abs [place] <0.87 k/uL 0.63 Eosin% % 2.6 Abs Eosin <0.46 k/uL 0.16 Baso% % 0.5 Abs Baso <0.11 k/uL 0.03 Immature Gran % % 0.2 IMMATURE GRANS (ABS) <0.10 k/uL <0.03 NRBC /100 WBC 0.0 Absolute nRBC <0.01 k/uL <0.01 DTYPE Auto Glucose 74 - 99 mg/dL 117 (H) BUN 7 - 21 mg/dL 23 (H) Creatinine 0.58 - 0.96 mg/dL 1.21 (H) Sodium 136 - 144 mmol/L 138 Potassium 3.7 - 5.1 mmol/L 4.0 Chloride 97 - 105 mmol/L 101 CO2 22 - 30 mmol/L 25 Anion Gap 9 - 18 mmol/L 12 Calcium 8.5 - 10.2 mg/dL 9.6 eGFR >=60 mL/min/1.73m 44 (L) Hemoglobin A1C 4.3 - 5.6 % 6.8 (H) Estimated Average Glucose mg/dL 148 Legend: (H) High (L) Low MEDICATIONS: Current Outpatient Medications Medication Sig simvastatin (ZOCOR) 20 mg tablet Take 1 tablet by mouth daily at bedtime. benzonatate (TESSALON PERLES) 100 mg capsule Take 1 capsule by mouth three times a day as needed. meclizine (ANTIVERT) 12.5 mg tab Take 1 tablet by mouth every 6 hours as needed (dizziness). amLODIPine (NORVASC) 5 mg tablet Take 1 tablet by mouth once daily. blood sugar diagnostic (BLOOD GLUCOSE TEST) test strip Test blood sugar(s) 1 times daily. Dx: 250.00 , E11.22. Insulin: No levothyroxine (SYNTHROID) 50 mcg tablet Take 1 tablet by mouth once daily. Take on empty stomach. For thyroid. ondansetron orally disintegrating (ZOFRAN ODT) 4 mg disintegrating tablet Take 1 tablet by mouth every 6 hours as needed for Nausea/Vomiting for up to 10 doses. Lancets (COMFORT LANCETS) lancets 1 Each once daily. TEST ONCE DAILY Cholecalciferol, Vitamin D3, 2,000 unit cap Take 1 capsule by mouth once daily. No current facility-administered medications for this visit. 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 Diarrhea Essential hypertension, benign 11/28/2011 Family history of malignant neoplasm of gastrointestinal tract Hyperlipidemia 10/31/2011 Hyperlipidemia LDL goal <100 05/15/2016 Osteopenia, senile 07/05/2017 Type II or unspecified type diabetes mellitus with renal manifestations, not stated as uncontrolled(250.40) 11/06/2013 250.40 PAST SURGICAL HISTORY Procedure Laterality Date COLONOSCOPY W/BIOPSY SINGLE/MULTIPLE 08/23/10 PAST SURGICAL HISTORY OF cancer removed from right side of nose FAMILY HISTORY Problem Relation Age of Onset Breast Cancer Mother STOMACH Heart Mother Diabetes Mother other (polycystic kidney disease) Son Hypertension Sister Ischemic Heart Disease Sister Breast Cancer Sister Heart Brother Colon Cancer Brother other (CVA) Son 58 Social History Tobacco Use Smoking status: Never Smokeless tobacco: Never Vaping Use Vaping Use: Never used Substance Use Topics Alcohol use: Yes Comment: rare Drug use: No Reviewed current medications, allergies, past medical history, surgical history, family history andsocial history today. REVIEW OF SYSTEMS No gi or gu issues. All other reviewed and negative other than HPI. HEALTH MAINTENANCE: Reviewed health maintenance issues today and recommended the following in detail. Advance Directive Discussion due on 11/19/2023 Behavioral Health Screening Never done Diabetic Foot Exam due on 03/28/2024 VITALS: BP 160/67 Pulse 91 Ht 158.8 cm (5' 2.5) Wt 54.4 kg (120 lb) BMI 21.60 kg/m Last 4 Encounter Wt Readings: Date: Wt: 04/15/2024 54.4 kg (120 lb) 11/07/2023 52.6 kg (116 lb) 10/26/2023 52.6 kg (116 lb) 10/08/2023 52.6 kg (116 lb) PHYSICAL EXAMINATION: General appearance: Well appearing, alert, in no acute distress, well-hydrated, well nourished. Skin: Skin color, texture, turgor normal, no suspicious rashes or lesions Head: Normocephalic, no masses, lesions, tenderness or abnormalities Neck: Supple, no adenopath Lungs: Lungs clear to auscultation. No wheezing, rhonchi, rales Heart: RRR without murmur, gallop, or rubs. No ectopy Abdomen: Normal abdominal exam, Abdomen soft, non-tender. Bowel sounds normal. No masses, organomegaly Extremities: No deformities, edema, skin discoloration, clubbing or cyanosis. Good capillary refill. Feet:Shoes and socks removed, No deformities, ulcers, calluses, normal distal pulses, and sensitiveto 10 gm monofilament ASSESSMENT/PLAN: 1. Hypertensive kidney disease with stage 3 chronic kidney disease, unspecified whether stage 3a or3b CKD ([facility]) - ICD9: 403.90, 585.3, ICD10: I12.9, N18.30 (primary diagnosis) - follow labs. Renal function is stable. Recheck bp in one month 2. Hyperlipidemia LDL goal <100 - ICD9: 272.4, ICD10: E78.5 - Controlled - Continue current medications - COMPLETE BLOOD COUNT AND DIFFERENTIAL - COMPREHENSIVE METABOLIC PANEL - LIPID PANEL BASIC 3. Type 2 diabetes mellitus with stage 3a chronic kidney disease, without long- term current use of insulin ([facility]) - ICD9: 250.40, 585.3, ICD10: E11.22, N18.31 - labs are stable. No meds given there age. - HEMOGLOBIN A1C 4. Acquired hypothyroidism - ICD9: 244.9, ICD10: E03.9 - Discussed risks and benefits of new medication with the patient. Advised them to call if any sideeffects or questions. - THYROID STIMULATING HORMONE 5. Basal cell carcinoma of face - ICD9: 173.31, ICD10: C44.310 - has seen Dr Jara 6. Bilateral carotid artery stenosis - ICD9: 433.10, 433.30, ICD10: I65.23 - up to date on testing. Earl Romero MD RTO in six months or prn [facility] encounter Note * Telephone Encounter - Brandy Dover RN - 04/11/2024 3:16 PM EDT Patient notified of results and provider's instructions. Patient verbalizes understanding. Brandy Dover RN [facility] Miscellaneous Notes* Telephone Encounter - Brandy Dover RN - 04/11/2024 3:16 PM EDT Patient notified of results and provider's instructions. Patient verbalizes understanding. Brandy Dover RN * Telephone Encounter - Nick Castelan LPN - 04/11/2024 11:45 AM EDT Left message for patient to speak with nurse. She does have follow up scheduled for next week to review. * Telephone Encounter - Kaya Conte APRN.CNS - 04/11/2024 8:16 AM EDT Please let patient know that her kidney function is slightly weak, stage III chronic kidney disease. This has remained about the same. Remember to drink plenty of fluids to flush her kidneys. Especially when it is hot. Blood sugars are fairly controlled. Keep up the good work. Blood counts are normal. [facility] Telephone encounter Note * Telephone Encounter - Nick Castelan LPN - 04/11/2024 11:45 AM EDT Left message for patient to speak with nurse. She does have follow up scheduled for next week to review. [facility] Telephone encounter Note* Telephone Encounter - Kaya Conte APRN.BRENDA - 04/11/2024 8:16 AM EDT Please let patient know that her kidney function is slightly weak, stage III chronic kidney disease. This has remained about the same. Remember to drink plenty of fluids to flush her kidneys. Especially when it is hot. Blood sugars are fairly controlled. Keep up the good work. Blood counts are normal. [facility] Work Phone: 1(928) 181-517505-10-2024 Miscellaneous Notes* Telephone Encounter - Nick Castelan LPN - 03/28/2024 1:30 PM EDT Patient notified. * Telephone Encounter - Earl Romero MD - 03/28/2024 11:50 AM EDT Labs placed. * Telephone Encounter - Nancy Calitxo RN - 03/28/2024 11:26 AM EDT Patient has 6 month follow up with [address]. Romero on 04/15/24. Pt asking if PCP would like order any labs to have done prior to appt? Please advise patient. Nancy Calixto RN [facility] Telephone encounter Note * Telephone Encounter - Nick Castelan LPN - 03/28/2024 1:30 PM EDT Patient notified. [facility] Note* Telephone Encounter - Earl Romero MD - 03/28/2024 11:50 AM EDT Labs placed. [facility] Telephone encounter Note* Telephone Encounter - Nancy Calixto RN - 03/28/2024 11:26 AM EDT Patient has 6 month follow up with Dr. Romero on 04/15/24. Pt asking if PCP would like order any labs to have done prior to appt? Please advise patient. Nancy Calixto RN [facility]05-[facility] Evaluation note* Diagnosis Hypertensive kidney disease with stage 3 chronic kidney disease, unspecified whether stage 3a or 3b CKD (HCC)- Primary Type 2 diabetes mellitus with stage 3a chronic kidney disease, without long-term current use of insulin (HCC) documented in this encounter [facility] Miscellaneous Notes* Telephone Encounter - Ramandeep Olivas - 01/10/2024 11:47 AM EST Pharmacy verified in [facility] Patient has been identified by name and date of : Yes Patient aware RX will be sent to pharmacy. No need to notify patient. Patient phones for refill(s): Requested Prescriptions Pending Prescriptions Disp Refills simvastatin (ZOCOR) 20 mg tablet 90 tablet 3 Sig: Take 1 tablet by mouth daily at bedtime. Date of last office visit : 11/07/2023 Date of next office visit : 04/15/2024 Last 2 Encounter Wt Readings: Date: Wt: 11/07/2023 52.6 kg (116 lb) 10/26/2023 52.6 kg (116 lb) Not applicable Please advise. Ramandeep Ortiz Pss documented [facility]12[facility]23 Miscellaneous Notes* Telephone Encounter - Catherine Ni - 11/08/2023 8:54 AM EST Talked to patient and she verbally understands that she is positive for influenza and it is to latefor medication and an antibiotic will not help. She also understands if she gets SOB or worsens to go to the ER. Catherine Ni * Telephone Encounter - Earl Romero MD - 11/08/2023 8:00 AM EST Let her know she is positive for influenza a. She has been sick too long to prescribe something like tamiflu. Rest and fluids. If becomes short of breath or more ill, call immediately or go to er. Antibiotics will not help. I would stay home and away from others until feeling better and no feveretc. [facility]12[facility]23 Miscellaneous Notes* Telephone Encounter - Nikki Dobbs Ma - 10/24/2023 9:46 AM EST Patient was notified and scheduled Nikki Dobbs Ma * Telephone Encounter - Earl Romero MD - 10/24/2023 9:37 AM EST If bad enough to require meds, needs seen here or urgent care * Telephone Encounter - Brandy Dover RN - 10/24/2023 9:33 AM EST Patient calls and states that she feels a little nausea today. Patient states that yesterday she woke up and was dizzy. Patient had nausea, vomiting, and diarrhea. Patient could not keep anything down yesterday. Patient states that she does not feel dizzy today and the only symptom that remains is nausea. Patient asking what she can take for the nausea? Please review and advise, Brandy Dover RN documented in [facility]11-21-2023 Miscellaneous Notes* Telephone Encounter - Carmen Renner LPN - 10/09/2023 11:24 AM EST Patient has been identified by name and date of : Yes, Provider Dr Romero Date 10/09/23 Patient phones for refill(s): Requested Prescriptions Pending Prescriptions Disp Refills amLODIPine (NORVASC) 5 mg tablet 90 tablet 3 Sig: Take 1 tablet by mouth once daily. Date of last office visit in primary care: 10/08/2023 Date of next office visit in primary care: 04/15/2024 Last 2 Encounter Wt Readings: Date: Wt: 10/08/2023 52.6 kg (116 lb) 03/28/2023 55.3 kg (122 lb) Please advise. Thank you. Carmen Renner LPN. documented [facility]11-[facility]-2023 Evaluation note* Diagnosis Hypertensive kidney disease with stage 3 chronic kidney disease, unspecified whether stage 3a or 3b CKD (HCC) documented in this encounter [facility] Instructions* Patient Instructions* Earl Romero MD - 10/08/2023 1:59 PM EST Get labs in four weeks. Get labs in six months. documented in [facility]11-[facility] History of Present illness Narrative* Earl Romero MD - 10/08/2023 1:35 PM EST Patient presents with: 6 Month Exam HPI: Patient presents today for office visit for follow up. HTN: Continues on Amlodipine 5 mg Monitors BP occ Denies chest pain and shortness of breath No headaches or dizziness No palpitations or syncopal episodes No edema HLD: Continues on Simvastatin No myalgias HYPOTHYROID: Patient is compliant with medications: Yes Patient has changes in energy: No Patient has changes in hair or skin: No Patient has temperature intolerance: No Patient has weight changes: No Discussed recent labs. Renal function is up slightly higher but remains with a gfr in the 30's. Will follow. Had also been off of potassium but apparently has been taking it. Was previously on it while on hctz. Will stop it and follow the labs Sugars are actually slightly better. Not treating with meds unless getting worse. Component Latest Ref Rng & Units 10/02/2023 Glucose 74 - 99 mg/dL 121 (H) BUN 7 - 21 mg/dL 24 (H) Creatinine 0.58 - 0.96 mg/dL 1.36 (H) Sodium 136 - 144 mmol/L 135 (L) Potassium 3.7 - 5.1 mmol/L 4.1 Chloride 97 - 105 mmol/L 99 CO2 22 - 30 mmol/L 27 Anion Gap 9 - 18 mmol/L 9 Calcium 8.5 - 10.2 mg/dL 9.6 eGFR >=60 mL/min/1.73m 38 (L) Hemoglobin A1C 4.3 - 5.6 % 6.6 (H) Estimated Average Glucose mg/dL 143 MEDICATIONS: Current Outpatient Medications Medication Sig potassium chloride ER (KLOR-CON) 20 mEq tablet blood sugar diagnostic (BLOOD GLUCOSE TEST) test strip Test blood sugar(s) 1 times daily. Dx: 250.00 , E11.22. Insulin: No levothyroxine (SYNTHROID) 50 mcg tablet Take 1 tablet by mouth once daily. Take on empty stomach. For thyroid. simvastatin (ZOCOR) 20 mg tablet Take 1 tablet by mouth daily at bedtime. amLODIPine (NORVASC) 5 mg tablet Take 1 tablet by mouth once daily. ondansetron orally disintegrating (ZOFRAN ODT) 4 mg disintegrating tablet Take 1 tablet by mouth every 6 hours as needed for Nausea/Vomiting for up to 10 doses. Lancets (COMFORT LANCETS) lancets 1 Each once daily. TEST ONCE DAILY Cholecalciferol, Vitamin D3, 2,000 unit cap Take 1 capsule by mouth once daily. meclizine (ANTIVERT) 25 mg tab Take 1 tablet by mouth three times daily. No current facility-administered medications for this visit. 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 Diarrhea Essential hypertension, benign 11/28/2011 Family history of malignant neoplasm of gastrointestinal tract Hyperlipidemia 10/31/2011 Hyperlipidemia LDL goal <100 05/15/2016 Osteopenia, senile 07/05/2017 Type II or unspecified type diabetes mellitus with renal manifestations, not stated as uncontrolled(250.40) 11/06/2013 250.40 PAST SURGICAL HISTORY Procedure Laterality Date COLONOSCOPY W/BIOPSY SINGLE/MULTIPLE 08/23/10 PAST SURGICAL HISTORY OF cancer removed from right side of nose FAMILY HISTORY Problem Relation Age of Onset Breast Cancer Mother STOMACH Heart Mother Diabetes Mother other (polycystic kidney disease) Son Hypertension Sister Ischemic Heart Disease Sister Breast Cancer Sister Heart Brother Colon Cancer Brother other (CVA) Son 58 Social History Tobacco Use Smoking status: Never Smokeless tobacco: Never Vaping Use Vaping Use: Never used Substance Use Topics Alcohol use: Yes Alcohol/week: 1.7 standard drinks of alcohol Comment: rare Drug use: No Reviewed current medications, allergies, past medical history, surgical history, family history andsocial history today. REVIEW OF SYSTEMS All other reviewed and negative other than HPI. HEALTH MAINTENANCE: Reviewed health maintenance issues today and recommended the following in detail. Hepatitis B Vaccine(1 of 3 - Risk 3-dose series) Never done RSV Vaccine(1 - 1-dose 60+ series) Never done Influenza Vaccine(1) due on 07/20/2023 Covid-19 Vaccine(2022- season) due on 07/20/2023 VITALS: BP 126/60 Pulse 86 Ht 158.8 cm (5' 2.5) Wt 52.6 kg (116 lb) SpO2 99% BMI 20.88 kg/m Last 4 Encounter Wt Readings: Date: Wt: 03/28/2023 55.3 kg (122 lb) 10/05/2022 53.5 kg (118 lb) 03/30/2022 53.1 kg (117 lb) 12/01/2021 52.6 kg (116 lb) PHYSICAL EXAMINATION: General appearance: Well appearing, alert, in no acute distress, well-hydrated, well nourished. Skin: Skin color, texture, turgor normal, no suspicious rashes or lesions Head: Normocephalic, no masses, lesions, tenderness or abnormalities Lungs: Lungs clear to auscultation. No wheezing, rhonchi, rales Heart: RRR without murmur, gallop, or rubs. No ectopy Abdomen: Normal abdominal exam, Abdomen soft, non-tender. Bowel sounds normal. No masses, organomegaly Extremities: No deformities, edema, skin discoloration, clubbing or cyanosis. Good capillary refill. Musculoskeletal: No joint swelling, deformity, or tenderness ASSESSMENT/PLAN: 1. Hypertensive kidney disease with stage 3 chronic kidney disease, unspecified whether stage 3a or3b CKD (HCC) - ICD9: 403.90, 585.3, ICD10: I12.9, N18.30 (primary diagnosis) - stable. Continue meds. 2. Hyperlipidemia LDL goal <100 - ICD9: 272.4, ICD10: E78.5 - Controlled - Counseled on healthy diet and regular exercise - LIPID PANEL BASIC 3. Type 2 diabetes mellitus with stage 3a chronic kidney disease, without long- term current use of insulin ([facility]) - ICD9: 250.40, 585.3, ICD10: E11.22, N18.31 - Controlled - continue to control with diet. - CBC + DIFF - COMP METABOLIC PANEL - HGB A1C - ALBUMIN/CREAT RATIO RND UR - LIPID PANEL BASIC 4. Acquired hypothyroidism - ICD9: 244.9, ICD10: E03.9 Follow with labs. - TSH BLD 5. Basal cell carcinoma of face - ICD9: 173.31, ICD10: C44.310 - sees Dr Jara 6. Bilateral carotid artery stenosis - ICD9: 433.10, 433.30, ICD10: I65.23 - following. Had testing done recently. Earl Romero MD documented in [facility] encounterT[facility]11-[facility]-2023 Miscellaneous Notes* Telephone Encounter - Isatu Mcgrath Ma - 10/08/2023 9:42 AM EST Patient was made aware of the results. Patient verbalizes understanding. Isatu Mcgrath Ma * Telephone Encounter - Jose De Leon PA-C - 10/08/2023 8:15 AM EST Please let her know she is dehydrated: Please push fluids with water, non- caffeinated and non-alcoholic beverages at least 36-40 oz a day. Recheck BMP in 4 weeks with increased fluid Telephone on 10/08/23 BASIC METABOLIC PNL Thanks, Orlando De Leon PA-C documented in this encounterT[facility]09-22-2023 Miscellaneous Notes* Telephone Encounter - Isatu Mcgrath Ma - 08/10/2023 9:29 AM EDT Patient was made aware of the results. Patient verbalizes understanding. Isatu Mcgrath Ma\ * Telephone Encounter - Earl Romero MD - 08/09/2023 5:12 PM EDT Let her know her carotid is unchanged. documented in this encounterT[facility]07-07-2023 Miscellaneous Notes* Telephone Encounter - Kendra Quiros - 05/25/2023 10:01 AM EDT Courtney informed and verbalized understanding. Kendra Quiros * Telephone Encounter - Earl Romero MD - 05/25/2023 9:33 AM EDT Does not need a script. I think she means a tdap. I think almost all pharmacies should have that. Even the health department as well. Extremely common vaccine. It for tetanus and whooping cough. * Telephone Encounter - Tabby Foster LPN - 05/25/2023 9:21 AM EDT Pt called back and she had checked with her pharmacy and [facility] and they do not have any vaccines listed for pt. Pt asking if you would recommend she get this vaccine. She is not sure what the name of it is but has whooping cough in it. Reason is her great grandchild will be born soon and her grandson is asking to make sure she is up to date on vaccines. Pt also asked if she gets thisfrom her pharmacy does she need a prescription to get it. Please advise pt. Tabby Foster LPN documented in this encounterT[facility]07-06-2023 Miscellaneous Notes* Telephone Encounter - Earl Romero MD - 05/24/2023 11:45 AM EDT Noted * Telephone Encounter - Jose Berry RN - 05/24/2023 11:40 AM EDT Patient reports her great grandchild will be born soon, and her grandson asked her to make sure sheis up to date on vaccines. Patient asking what vaccines she should be up to date on. Patient will check with [facility] to find out what vaccines she has had there and ask them to forward those results to pcp. Please advise patient. documented in this encounterT[facility]06-26-2023 Miscellaneous Notes* Telephone Encounter - Florencia Cross Ma - 05/14/2023 11:03 AM EDT Call to pt and notified her of results below, verbalized understanding. Pt has additional questions, regarding Diabetes. Last A1c was 6.7 on 03/21/23. Currently on no medication and managing without medication. Her current strips have in October. Last strips were sent in on 10/17/21 #100 strips w/12 refills. One Touch Ultra. Florencia Cross Ma * Telephone Encounter - Florencia Cross Ma - 05/14/2023 11:01 AM EDT ----- Message from Jose De Leon PA-C sent at 05/13/2023 11:39 AM EDT ----- Please let her know her thyroid is in good range. Thank you Orlando De Leon PA-C documented in this encounterT[facility]05-10-2023 History of Present illness Narrative* Earl Romero MD - 03/28/2023 3:11 PM EDT Patient presents with: 6 Month Exam HPI: Patient presents today for office visit for follow up. HTN: Doesn't check BP often Consistent with taking medications Does not miss doses Denies chest pain and shortness of breath No headaches or dizziness No palpitations No edema No syncope HYPOTHYROID: Thyroid is slightly low. Levothyroxine increased to 50 mcg daily No energy changes No hair or skin changes HLD: No myalgias Still seeing derm. Declines further carotids. Will stop alendronate given her age etc. Won't pursue testing. a Component Latest Ref Rng & Units 03/21/2023 WBC 3.70 - 11.00 k/uL 5.69 RBC 3.90 - 5.20 m/uL 4.19 Hemoglobin 11.5 - 15.5 g/dL 13.1 Hematocrit 36.0 - 46.0 % 40.0 MCV 80.0 - 100.0 fL 95.5 MCH 26.0 - 34.0 pg 31.3 MCHC 30.5 - 36.0 g/dL 32.8 RDW-CV 11.5 - 15.0 % 13.8 Platelet Count 150 - 400 k/uL 232 MPV 9.0 - 12.7 fL 10.7 Neut% % 47.4 Abs Neut (ANC) 1.45 - 7.50 k/uL 2.70 Lymph% % 38.0 Abs Lymph 1.00 - 4.00 k/uL 2.16 [place]% % 10.7 Abs [place] <0.87 k/uL 0.61 Eosin% % 2.8 Abs Eosin <0.46 k/uL 0.16 Baso% % 0.9 Abs Baso <0.11 k/uL 0.05 Immature Gran % % 0.2 IMMATURE GRANS (ABS) <0.10 k/uL <0.03 NRBC /100 WBC 0.0 Absolute nRBC <0.01 k/uL <0.01 DTYPE Auto Protein, Total 6.3 - 8.0 g/dL 7.5 Albumin 3.9 - 4.9 g/dL 4.2 Calcium 8.5 - 10.2 mg/dL 9.7 Bilirubin, Total 0.2 - 1.3 mg/dL 0.5 Alkaline Phosphatase 34 - 123 U/L 50 AST 13 - 35 U/L 26 ALT 7 - 38 U/L 14 Glucose 74 - 99 mg/dL 118 (H) BUN 7 - 21 mg/dL 23 (H) Creatinine 0.58 - 0.96 mg/dL 1.30 (H) Sodium 136 - 144 mmol/L 136 Potassium 3.7 - 5.1 mmol/L 4.4 Chloride 97 - 105 mmol/L 99 CO2 22 - 30 mmol/L 25 Anion Gap 9 - 18 mmol/L 12 eGFR >=60 mL/min/1.73m 40 (L) Cholesterol, Total <200 mg/dL 147 Triglyceride <150 mg/dL 93 HDL Cholesterol >39 mg/dL 65 Non HDL Cholesterol <130 mg/dL 82 Fasting Time hrs 13 VLDL Cholesterol <30 mg/dL 19 TC:HDL Ratio <5.10 2.26 LDL Cholesterol <100 mg/dL 63 LDL:HDL Ratio <2.54 0.97 Creatinine, Ur Random (UCRR) 20.0 - 300.0 mg/dL 160.9 Albumin, Urine Random mg/L 23.3 Albumin/Creat Ratio <30 mg/g 14 Hemoglobin A1C 4.3 - 5.6 % 6.7 (H) Estimated Average Glucose mg/dL 146 TSH 0.270 - 4.200 mIU/L 4.550 (H) MEDICATIONS: Current Outpatient Medications Medication Sig levothyroxine (SYNTHROID) 50 mcg tablet Take 1 tablet by mouth once daily. Take on empty stomach. For thyroid. simvastatin (ZOCOR) 20 mg tablet Take 1 tablet by mouth daily at bedtime. amLODIPine (NORVASC) 5 mg tablet Take 1 tablet by mouth once daily. alendronate (FOSAMAX) 70 mg tablet Take 1 tablet by mouth one time a week. Take with a full glass of water, on an empty stomach; do NOT lie down for 60minutes. blood sugar diagnostic (BLOOD GLUCOSE TEST) test strip Test blood sugar(s) 1 times daily. Dx: 250.00 , E11.22. Insulin: No ondansetron orally disintegrating (ZOFRAN ODT) 4 mg disintegrating tablet Take 1 tablet by mouth every 6 hours as needed for Nausea/Vomiting for up to 10 doses. Lancets (COMFORT LANCETS) lancets 1 Each once daily. TEST ONCE DAILY Cholecalciferol, Vitamin D3, 2,000 unit cap Take 1 capsule by mouth once daily. meclizine (ANTIVERT) 25 mg tab Take 1 tablet by mouth three times daily. No current facility-administered medications for this visit. 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 Diarrhea Essential hypertension, benign 11/28/2011 Family history of malignant neoplasm of gastrointestinal tract Hyperlipidemia 10/31/2011 Hyperlipidemia LDL goal <100 05/15/2016 Osteopenia, senile 07/05/2017 Type II or unspecified type diabetes mellitus with renal manifestations, not stated as uncontrolled(250.40) 11/06/2013 250.40 PAST SURGICAL HISTORY Procedure Laterality Date COLONOSCOPY W/BIOPSY SINGLE/MULTIPLE 08/23/10 PAST SURGICAL HISTORY OF cancer removed from right side of nose FAMILY HISTORY Problem Relation Age of Onset Breast Cancer Mother STOMACH Heart Mother Diabetes Mother other (polycystic kidney disease) Son Hypertension Sister Ischemic Heart Disease Sister Breast Cancer Sister Heart Brother Colon Cancer Brother other (CVA) Son 58 Social History Tobacco Use Smoking status: Never Smokeless tobacco: Never Vaping Use Vaping Use: Never used Substance Use Topics Alcohol use: Yes Alcohol/week: 1.7 standard drinks Comment: rare Drug use: No Reviewed current medications, allergies, past medical history, surgical history, family history andsocial history today. REVIEW OF SYSTEMS All other reviewed and negative other than HPI. HEALTH MAINTENANCE: Reviewed health maintenance issues today and recommended the following in detail. DTAP,TDAP,TD(1 - Tdap) due on 06/11/2009 COVID-19 VACCINE(5 - Booster for Pfizer series) due on 09/07/2022 ADVANCE DIRECTIVE DISCUSSION - has a a dpoa. Her daughter Sheri is surrogate. DEPRESSION ASSESSMENT due on 11/19/2022 DIABETIC FOOT EXAM -done today VITALS: BP 154/64 Pulse 91 Ht 158.8 cm (5' 2.5) Wt 55.3 kg (122 lb) SpO2 96% BMI 21.96 kg/m Last 4 Encounter Wt Readings: Date: Wt: 10/05/2022 53.5 kg (118 lb) 03/30/2022 53.1 kg (117 lb) 12/01/2021 52.6 kg (116 lb) 10/19/2021 52.2 kg (115 lb) PHYSICAL EXAMINATION: General appearance: Well appearing, alert, in no acute distress, well-hydrated, well nourished. Skin: Skin color, texture, turgor normal, no suspicious rashes or lesions Head: Normocephalic, no masses, lesions, tenderness or abnormalities Eyes: Anicteric sclera. Pupils are equally round and reactive to light. Extraocular movements are intact. Lungs: Lungs clear to auscultation. No wheezing, rhonchi, rales Heart: RRR without murmur, gallop, or rubs. No ectopy Abdomen: Normal abdominal exam, Abdomen soft, non-tender. Bowel sounds normal. No masses, organomegaly Extremities: No deformities, edema, skin discoloration, clubbing or cyanosis. Good capillary refill. Feet:Shoes and socks removed, No deformities, ulcers, calluses, normal distal pulses, and sensitiveto 10 gm monofilament ASSESSMENT/PLAN: 1. Hypertensive kidney disease with stage 3 chronic kidney disease, unspecified whether stage 3a or3b CKD (HCC) - ICD9: 403.90, 585.3, ICD10: I12.9, N18.30 (primary diagnosis) - continue to follow labs - BASIC METABOLIC PNL 2. Hyperlipidemia LDL goal <100 - ICD9: 272.4, ICD10: E78.5 - stable. 3. Acquired hypothyroidism - ICD9: 244.9, ICD10: E03.9 - stable. 4. Bilateral carotid artery stenosis - ICD9: 433.10, 433.30, ICD10: I65.23 - declines follow up. 5. Osteopenia, senile - ICD9: 733.90, ICD10: M85.80 - will not treat further given age. Stop meds. 6. Basal cell carcinoma of face - ICD9: 173.31, ICD10: C44.310 - derm is stable. 7. Type 2 diabetes mellitus with stage 3a chronic kidney disease, without long- term current use of insulin (HCC) - ICD9: 250.40, 585.3, ICD10: E11.22, N18.31 - HGB A1C Earl Romero MD [facility] History of Past illness Narrative* Problem Noted Date Resolved Date Nausea and vomiting 03/28/2023 03/28/2023 CKD (chronic kidney disease) stage 3, GFR 30-59 ml/min 07/15/2020 03/30/2022 Polyp of colon 08/14/2017 03/28/2023 Occult blood positive stool 07/11/2017 080 07/2018 Hypercalcemia 12/29/2016 12/28/2017 Personal history of other malignant neoplasm of skin 01/04/2011 04/06/2021 Herpes simplex without mention of complication 1 01/12/2007 11/23/2014 Trigger finger (acquired) 09/25/20072017 documented as of this encounter (statuses as of 03/29/2023) [facility] of Past illness Narrative* Problem Noted Date Resolved Date Nausea and vomiting 03/28/2023 03/28/2023 CKD (chronic kidney disease) stage 3, GFR 30-59 ml/min 07/15/2020 03/30/2022 Polyp of colon 08/14/2017 03/28/2023 Occult blood positive stool 07/11/2017 08/0 07/2018 Hypercalcemia 12/29/2016 12/28/2017 Personal history of other malignant neoplasm of skin 01/04/2011 04/06/2021 Herpes simplex without mention of complication 1 01/12/2007 11/23/2014 Trigger finger (acquired) 09/25/20072017 documented as of this encounter (statuses as of 05/14/2023) [address]10-[address]23 History of Past illness Narrative* Problem Noted Date Resolved Date Nausea and vomiting 03/28/2023 03/28/2023 CKD (chronic kidney disease) stage 3, GFR 30-59 ml/min 07/15/2020 03/30/2022 Polyp of colon 08/14/2017 03/28/2023 Occult blood positive stool 07/11/2017 08/0 07/2018 Hypercalcemia 12/29/2016 12/28/2017 Personal history of other malignant neoplasm of skin 01/04/2011 04/06/2021 Herpes simplex without mention of complication 1 01/12/2007 11/23/2014 Trigger finger (acquired) 09/25/20072017 documented as of this encounter (statuses as of 05/24/2023) [facility] illness Narrative* Problem Noted Date Resolved Date Nausea and vomiting 03/28/2023 03/28/2023 CKD (chronic kidney disease) stage 3, GFR 30-59 ml/min 07/15/2020 03/30/2022 Polyp of colon 08/14/2017 03/28/2023 Occult blood positive stool 07/11/2017 08/0 07/2018 Hypercalcemia 12/29/2016 12/28/2017 Personal history of other malignant neoplasm of skin 01/04/2011 04/06/2021 Herpes simplex without mention of complication 1 01/12/2007 11/23/2014 Trigger finger (acquired) 09/25/20072017 documented as of this encounter (statuses as of 05/25/2023) [address]23 History of Past illness Narrative* Problem Noted Date Diagnosed Date Resolved Date Nausea and vomiting 03/28/2023 03/28/20 CKD (chronic kidney disease) stage 3, GFR 30-59 ml/min 07/15/2020 03/30/2022 Polyp of colon 08/14/2017 03/28/2023 Occult blood positive stool 07/11/2017 06/27/2018 Hypercalcemia 12/29/2016 12/28/2017 Personal history of other ma lignant neoplasm of skin 01/04/2011 04/06/2021 Herpes simplex without menti on of complication 11/11/2007 11/23/2014 Trigger finger (acquired) 09/25/2007 documented as of this encounter (statuses as of 08/10/2023) [facility] of [facility] illness Narrative* Problem Noted Date Diagnosed Date Resolved Date Nausea and vomiting 03/28/2023 03/28/20 23 CKD (chronic kidney disease) stage 3, GFR 30-59 ml/min 07/15/2020 03/30/2022 Polyp of colon 08/14/2017 03/28/2023 Occult blood positive stool 07/11/2017 06/27/2018 Hypercalcemia 12/29/2016 12/28/2017 Personal history of other ma lignant neoplasm of skin 01/04/2011 04/06/2021 Herpes simplex without menti on of complication 11/11/2007 11/23/2014 Trigger finger (acquired) 09/25/2007 documented as of this encounter (statuses as of 10/08/2023) [facility] illness Narrative* Problem Noted Date Diagnosed Date Resolved Date Nausea and vomiting 03/28/2023 03/28/20 23 CKD (chronic kidney disease) stage 3, GFR 30-59 ml/min 07/15/2020 03/30/2022 Polyp of colon 08/14/2017 03/28/2023 Occult blood positive stool 07/11/2017 06/27/2018 Hypercalcemia 12/29/2016 12/28/2017 Personal history of other ma lignant neoplasm of skin 01/04/2011 04/06/2021 Herpes simplex without menti on of complication 11/11/2007 11/23/2014 Trigger finger (acquired) 09/25/2007 documented as of this encounter (statuses as of 10/09/2023) [facility] illness Narrative* Problem Noted Date Diagnosed Date Resolved Date Nausea and vomiting 03/28/2023 03/28/20 23 CKD (chronic kidney disease) stage 3, GFR 30-59 ml/min 07/15/2020 03/30/2022 Polyp of colon 08/14/2017 03/28/2023 Occult blood positive stool 07/11/2017 06/27/2018 Hypercalcemia 12/29/2016 12/28/2017 Personal history of other ma lignant neoplasm of skin 01/04/2011 04/06/2021 Herpes simplex without menti on of complication 11/11/2007 11/23/2014 Trigger finger (acquired) 09/25/2007 documented as of this encounter (statuses as of 10/10/2023) [facility] Narrative* Problem Noted Date Diagnosed Date Resolved Date Nausea and vomiting 03/28/2023 03/28/20 23 CKD (chronic kidney disease) stage 3, GFR 30-59 ml/min 07/15/2020 03/30/2022 Polyp of colon 08/14/2017 03/28/2023 Occult blood positive stool 07/11/2017 06/27/2018 Hypercalcemia 12/29/2016 12/28/2017 Personal history of other ma lignant neoplasm of skin 01/04/2011 04/06/2021 Herpes simplex without menti on of complication 11/11/2007 11/23/2014 Trigger finger (acquired) 09/25/2007 documented as of this encounter (statuses as of 10/24/2023) [facility] illness Narrative* Problem Noted Date Diagnosed Date Resolved Date Nausea and vomiting 03/28/2023 03/28/20 23 Polyp of colon 08/14/2017 03/28/2023 Occult blood positive stool 07/11/2017 06/27/2018 Hypercalcemia 12/29/2016 12/28/2017 Personal history of other ma lignant neoplasm of skin 01/04/2011 04/06/2021 Herpes simplex without menti on of complication 11/11/2007 11/23/2014 Trigger finger (acquired) 09/25/2007 documented as of this encounter (statuses as of 11/09/2023) [facility] illness Narrative* Problem Noted Date Diagnosed Date Resolved Date Nausea and vomiting 03/28/2023 03/28/20 23 Polyp of colon 08/14/2017 03/28/2023 Occult blood positive stool 07/11/2017 06/27/2018 Hypercalcemia 12/29/2016 12/28/2017 Personal history of other ma lignant neoplasm of skin 01/04/2011 04/06/2021 Herpes simplex without menti on of complication 11/11/2007 11/23/2014 Trigger finger (acquired) 09/25/2007 documented as of this encounter (statuses as of 01/10/2024) [facility] Miscellaneous Notes* Telephone Encounter - Nick Castelan LPN - 03/22/2023 5:30 PM EDT Patient notified and verbalizes understanding. * Telephone Encounter - Earl Romero MD - 03/22/2023 5:22 PM EDT Thyroid is slightly low. Increase synthroid to 50 mcg a day. Recheck tsh in six weeks. [facility]04[facility] Miscellaneous Notes* Telephone Encounter - Jose Berry RN - 03/08/2023 10:48 AM EDT Patient reports she hates taking her potassium pill. Reports it's too big and she has a hard time getting it down. Reports sometimes she forgets to take it too. Reports she has 3-4 pills left on her Rx. Has appt with pcp on 03-28-23 and will have labwork done next week or the week after. Asking pcp to please advise patient. [facility] Miscellaneous Notes* Telephone Encounter - Patricia Tobin - 12/27/2022 10:50 AM EST Patient has been identified by name and date of : Yes Requested Prescriptions Pending Prescriptions Disp Refills simvastatin (ZOCOR) 20 mg tablet 90 tablet 3 Sig: Take 1 tablet by mouth daily at bedtime. RX INSTRUCTIONS: Patient aware RX will be sent to pharmacy. No need to notify patient. Patricia Tobin [facility]12[facility] Miscellaneous Notes* Telephone Encounter - Sheila Roth LPN - 11/07/2022 10:03 AM EST Patient notified of below. Sheila Roth LPN * Telephone Encounter - Lauren Smith LPN - 11/06/2022 1:44 PM EST Phoned patient and left message to return call to office. * Telephone Encounter - Earl Romero MD - 11/06/2022 1:37 PM EST Bp is ok. * Telephone Encounter - Tracy Vivian SHARP - 11/06/2022 1:13 PM EST Manual Readin/62 Pulse: 90 BP Manuel average: 133/64 P: 88 Repeat BP Check: 149/66 P90 #1 125/63 P86 #2 124/61 P87 #3 135/66 P89 #4 129/67 P89 #5 137/63 P88 #6 Reason for blood pressure check - Last BP elevated Patient is: Taking medication as prescribed Yes Took medication today Yes If no, date medication last taken N/A Experiencing side effects No BP was elevated at last appt 10/05/22. No BP medication changes were made at that time. Taking all medications as prescribed. Denies any chest pain, shortness of breath, dizziness, or headaches. Occasional caffeine use; none today. No personal history of tobacco use; no current exposure. Alert and o riented. Pt has been identified by name and birthdate: Yes Allergies reviewed: Yes Latex allergy: no. Medication - prescribed and OTC reviewed and updated: Yes Do you need any prescription refills prior to your next visit: No Health Maintenance: Reviewed and not up to date and provider notified Patient advised to continue with current medications and would be contacted if any further instructions after review by PCP. Tracy Park LPN documented [facility] History of Present illness Narrative* Tracy Park LPN - 11/06/2022 1:12 PM EST Manual Readin/62 Pulse: 90 BP Manuel average: 133/64 P: 88 Repeat BP Check: 149/66 P90 #1 125/63 P86 #2 124/61 P87 #3 135/66 P89 #4 129/67 P89 #5 137/63 P88 #6 Reason for blood pressure check - Last BP elevated Patient is: Taking medication as prescribed Yes Took medication today Yes If no, date medication last taken N/A Experiencing side effects No BP was elevated at last appt 10/05/22. No BP medication changes were made at that time. Taking all medications as prescribed. Denies any chest pain, shortness of breath, dizziness, or headaches. Occasional caffeine use; none today. No personal history of tobacco use; no current exposure. Alert and o riented. Pt has been identified by name and birthdate: Yes Allergies reviewed: Yes Latex allergy: no. Medication - prescribed and OTC reviewed and updated: Yes Do you need any prescription refills prior to your next visit: No Health Maintenance: Reviewed and not up to date and provider notified Patient advised to continue with current medications and would be contacted if any further instructions after review by PCP. Tracy Park LPN [facility]12[facility] Evaluation note* Diagnosis Hypertensive kidney disease with stage 3a chronic kidney disease (HCC)- Primary documented in [facility] encounter [facility] Miscellaneous Notes* Telephone Encounter - Raina Chacon APRN.CNP - 10/30/2022 11:41 AM EST Agree. Needs appt or urgent care. Raina Chacon APRN.DALILA * Telephone Encounter - Stephanie Canchola RN - 10/30/2022 10:53 AM EST Patient reports sinus congestion, drainage, sore throat, and cough since a week last Sunday. Nursetriage completed. Protocol recommends see provider within 3 days. Patient requesting azithromycin. Notified patient she needed to be seen and evaluated prior to antibiotic prescription. Patient agreeable to appointment. Scheduled. Care advice reviewed. Patient verbalizes understanding. Reason for Disposition [1] Sinus congestion (pressure, fullness) AND [2] present > 10 days Answer Assessment - Initial Assessment Questions 1. LOCATION: Bilateral sinus pressure 2. ONSET: A week ago last sunday 3. SEVERITY: - MODERATE (4-7): interferes with normal activities (e.g., work or school) or awakens from sleep 4. RECURRENT SYMPTOM: Yes needed antibiotics 5. NASAL CONGESTION: yes 6. NASAL DISCHARGE: yes, clear 7. FEVER: no 8. OTHER SYMPTOMS: Sore throat, cough with a little clear drainage. Denies earache, or difficulty breathing. Protocols used: Sinus Pain or [id number] documented in this encounterT[facility]11-30-2022 Miscellaneous Notes* Telephone Encounter - Florencia Cross Ma - 10/18/2022 9:59 AM EST Letter mailed to pt notifying her of normal mammogram results. Florencia Cross Ma * Telephone Encounter - Earl Romero MD - 10/18/2022 9:32 AM EST Please let her know it is ok. * Telephone Encounter - Gorge Hernández LPN - 10/18/2022 8:53 AM EST Results of Mammogram ordered by PCP and completed at [facility]: View External Imaging - Mammography [ID [id number]] Gorge Hernández LPN documented in this encounterT[facility]11-17-2022 Miscellaneous Notes* Telephone Encounter - Nick Castelan LPN - 10/05/2022 3:21 PM EST Needs order for mammogram to go to [facility]. Please file so we can fax over for patient. documented in this encounterT[facility]05-25-2022 Miscellaneous Notes* Telephone Encounter - Gorge Hernández LPN - 04/12/2022 2:03 PM EDT ARIELLA 03/30/22 NOV 10/05/22 * Telephone Encounter - Shannon Goddard - 04/12/2022 1:17 PM EDT Patient has been identified by name and date of : Yes Pending Prescriptions Disp Refills ALENDRONATE 70 MG TABLET 12 tablet 3 Sig: Take 1 tablet by mouth one time a week. Take with a full glass of water, on an empty stomach; do NOT lie down for 60minutes. TANISHA: No RX INSTRUCTIONS: Patient aware RX will be sent to pharmacy. No need to notify patient. Shannon Goddard documented in this encounterT[facility]05-[facility]-2022 Miscellaneous Notes* Telephone Encounter - Brandy Dover RN - 03/27/2022 4:14 PM EDT Patient notified of results. Patient verbalizes understanding. Brandy Dover RN * Telephone Encounter - Gorge Hernández LPN - 03/27/2022 3:43 PM EDT TC to pt, left message to return call to office. Gorge Hernández LPN * Telephone Encounter - Gorge Hernández LPN - 03/27/2022 3:42 PM EDT ----- Message from Jose De Leon PA-C sent at 03/25/2022 11:54 AM EDT ----- Please advise diabetes, thyroid, cholesterolin good control CBC normal (RBC lab variance) Stable stage 3a renal insufficiency. Thanks, Orlando De Leon PA-C documented in this encounterT[facility]08-27-2020 History of Past illness Narrative* Problem Noted Date Resolved Date CKD (chronic kidney disease) stage 3, GFR 30-59 ml/min 07/15/2020 03/30/2022 Occult blood positive stool 07/11/2017 08/0 07/2018 Hypercalcemia 12/29/2016 12/28/2017 Personal history of other malignant neoplasm of skin 01/04/2011 04/06/2021 Herpes simplex without mention of complication 1 01/12/2007 11/23/2014 Trigger finger (acquired) 09/25/20072017 documented as of this encounter (statuses as of 04/12/2022) [facility] Narrative* Problem Noted Date Resolved Date CKD (chronic kidney disease) stage 3, GFR 30-59 ml/min 07/15/2020 03/30/2022 Occult blood positive stool 07/11/2017 08/0 07/2018 Hypercalcemia 12/29/2016 12/28/2017 Personal history of other malignant neoplasm of skin 01/04/2011 04/06/2021 Herpes simplex without mention of complication 1 01/12/2007 11/23/2014 Trigger finger (acquired) 09/25/20072017 documented as of this encounter (statuses as of 10/05/2022) [facility] Narrative* Problem Noted Date Resolved Date CKD (chronic kidney disease) stage 3, GFR 30-59 ml/min 07/15/2020 03/30/2022 Occult blood positive stool 07/11/2017 08/0 07/2018 Hypercalcemia 12/29/2016 12/28/2017 Personal history of other malignant neoplasm of skin 01/04/2011 04/06/2021 Herpes simplex without mention of complication 1 01/12/2007 11/23/2014 Trigger finger (acquired) 09/25/20072017 documented as of this encounter (statuses as of 10/18/2022) [place] [id number] History of Past illness Narrative* Problem Noted Date Resolved Date CKD (chronic kidney disease) stage 3, GFR 30-59 ml/min 07/15/2020 03/30/2022 Occult blood positive stool 07/11/2017 08/0 07/2018 Hypercalcemia 12/29/2016 12/28/2017 Personal history of other malignant neoplasm of skin 01/04/2011 04/06/2021 Herpes simplex without mention of complication 1 01/12/2007 11/23/2014 Trigger finger (acquired) 09/25/20072017 documented as of this encounter (statuses as of 10/30/2022) [place] [id number] History of Past illness Narrative* Problem Noted Date Resolved Date CKD (chronic kidney disease) stage 3, GFR 30-59 ml/min 07/15/2020 03/30/2022 Occult blood positive stool 07/11/2017 08/0 07/2018 Hypercalcemia 12/29/2016 12/28/2017 Personal history of other malignant neoplasm of skin 01/04/2011 04/06/2021 Herpes simplex without mention of complication 1 01/12/2007 11/23/2014 Trigger finger (acquired) 09/25/20072017 documented as of this encounter (statuses as of 11/06/2022) [place] [id number] History of Past illness Narrative* Problem Noted Date Resolved Date CKD (chronic kidney disease) stage 3, GFR 30-59 ml/min 07/15/2020 03/30/2022 Occult blood positive stool 07/11/2017 08/0 07/2018 Hypercalcemia 12/29/2016 12/28/2017 Personal history of other malignant neoplasm of skin 01/04/2011 04/06/2021 Herpes simplex without mention of complication 1 01/12/2007 11/23/2014 Trigger finger (acquired) 09/25/20072017 documented as of this encounter (statuses as of 11/07/2022) [place] [id number] History of Past illness Narrative* Problem Noted Date Resolved Date CKD (chronic kidney disease) stage 3, GFR 30-59 ml/min 07/15/2020 03/30/2022 Occult blood positive stool 07/11/2017 08/0 07/2018 Hypercalcemia 12/29/2016 12/28/2017 Personal history of other malignant neoplasm of skin 01/04/2011 04/06/2021 Herpes simplex without mention of complication 1 01/12/2007 11/23/2014 Trigger finger (acquired) 09/25/20072017 documented as of this encounter (statuses as of 12/27/2022) [facility] Narrative* Problem Noted Date Resolved Date CKD (chronic kidney disease) stage 3, GFR 30-59 ml/min 07/15/2020 03/30/2022 Occult blood positive stool 07/11/2017 08/0 07/2018 Hypercalcemia 12/29/2016 12/28/2017 Personal history of other malignant neoplasm of skin 01/04/2011 04/06/2021 Herpes simplex without mention of complication 1 01/12/2007 11/23/2014 Trigger finger (acquired) 09/25/20072017 documented as of this encounter (statuses as of 03/22/2023) [facility] Narrative* Problem Noted Date Resolved Date CKD (chronic kidney disease) stage 3, GFR 30-59 ml/min 07/15/2020 03/30/2022 Occult blood positive stool 07/11/2017 080 07/2018 Hypercalcemia 12/29/2016 12/28/2017 Personal history of other malignant neoplasm of skin 01/04/2011 04/06/2021 Herpes simplex without mention of complication 1 01/12/2007 11/23/2014 Trigger finger (acquired) 09/25/20072017 documented as of this encounter (statuses as of 03/23/2023) [facility] Narrative* Problem Noted Date Resolved Date Occult blood positive stool 07/11/2017 080 07/2018 Hypercalcemia 12/29/2016 12/28/2017 Personal history of other malignant neoplasm of skin 01/04/2011 04/06/2021 Herpes simplex without mention of complication 1 01/12/2007 11/23/2014 Trigger finger (acquired) 09/25/20072017 documented as of this encounter (statuses as of 03/27/2022) [facility]* Diagnosis Encounter for screening mammogram for malignant neoplasm of breast- Primary Other screening mammogram documented in this encounter [facility] noteNo assessment information availableWDoctors Hospital Work Phone: Evaluation note* Diagnosis Hyperlipidemia LDL goal <100 Other and unspecified hyperlipidemia documented in this encounter [facility]* Diagnosis Acquired hypothyroidism Unspecified hypothyroidism [facility]* Diagnosis Hypertensive kidney disease with stage 3 chronic kidney disease, unspecified whether stage 3a or 3b CKD (HCC)- Primary Hyperlipidemia LDL goal <100 Other and unspecified hyperlipidemia Acquired hypothyroidism Unspecified hypothyroidism Bilateral carotid artery stenosis Occlusion and stenosis of carotid artery without mention of cerebral infarction Osteopenia, senile Disorder of bone and cartilage, unspecified Basal cell carcinoma of face Basal cell carcinoma of skin of other and unspecified parts of face Type 2 diabetes mellitus with stage 3a chronic kidney disease, without long-term current use of insulin (HCC) [facility]* Diagnosis Type 2 diabetes mellitus with stage 3 chronic kidney disease, without long-term current use of insulin (HCC) [facility] De[facility]- Primary [facility] Diagnosis Hypertensive kidney disease with stage 3 chronic kidney disease, unspecified whether stage 3a or 3b CKD (HCC)- Primary Hyperlipidemia LDL goal <100 Other and unspecified hyperlipidemia Type 2 diabetes mellitus with stage 3a chronic kidney disease, without long-term current use of insulin (HCC) Acquired hypothyroidism Unspecified hypothyroidism Basal cell carcinoma of face Basal cell carcinoma of skin of other and unspecified parts of face Bilateral carotid artery stenosis Occlusion and stenosis of carotid artery without mention of cerebral infarction [facility] Hyperlipidemia LDL goal <100 Other and unspecified hyperlipidemia [facility] Hypertensive kidney disease with stage 3 chronic kidney disease, unspecified whether stage 3a or 3b CKD (HCC)- Primary Hyperlipidemia LDL goal <100 Other and unspecified hyperlipidemia Type 2 diabetes mellitus with stage 3a chronic kidney disease, without long-term current use of insulin (HCC) Acquired hypothyroidism Unspecified hypothyroidism Basal cell carcinoma of face Basal cell carcinoma of skin of other and unspecified parts of face Bilateral carotid artery stenosis Occlusion and stenosis of carotid artery without mention of cerebral infarction [facility] Acquired hypothyroidism Unspecified hypothyroidism [facility] Diagnosis Cellulitis of skin- Primary Cellulitis and abscess of unspecified site [facility] Diagnosis Cellulitis of skin- Primary Cellulitis and abscess of unspecified site Primary hypertension Unspecified essential hypertension [facility] Diagnosis Lightheadedness- Primary Dizziness and giddiness Headache, unspecified headache type [facility] Diagnosis Screening mammogram for breast cancer- Primary [facility] Diagnosis Type 2 diabetes mellitus with stage 3 chronic kidney disease, without long-term current use of insulin (HCC) [facility] Diagnosis Bilateral carotid artery stenosis- Primary Occlusion and stenosis of carotid artery without mention of cerebral infarction [facility] Diagnosis Hypertensive kidney disease with stage 3 chronic kidney disease, unspecified whether stage 3a or 3b CKD (HCC) [facility] Diagnosis Hyperlipidemia LDL goal <100 Other and unspecified hyperlipidemia [facility] Diagnosis Skin change- Primary Other symptoms involving skin and integumentary tissues [facility] Diagnosis Medicare annual wellness visit, subsequent- Primary Routine general medical examination at a health care facility Hypertensive kidney disease with stage 3 chronic kidney disease, unspecified whether stage 3a or 3b CKD (HCC) Hyperlipidemia LDL goal <100 Other and unspecified hyperlipidemia Type 2 diabetes mellitus with stage 3a chronic kidney disease, without long-term current use of insulin (HCC) Acquired hypothyroidism Unspecified hypothyroidism Osteopenia, senile Disorder of bone and cartilage, unspecified Bilateral carotid artery stenosis Occlusion and stenosis of carotid artery without mention of cerebral infarction Basal cell carcinoma of face Basal cell carcinoma of skin of other and unspecified parts of face Screening for depression Encounter for screening examination for other mental health and behavioral disorders documented in this encounter [facility] for referral (narrative)* Diagnostic Procedure Only (Routine) - Pending Review Specialty Diagnoses / Procedures Referred By Sarah t Referred To Contact [facility] Diagnoses Encounter for screening mammogram for malignant neoplasm of breast Procedures HAIR SCREENING W CAROL SCREENING DIGITAL BREAST TOMOSYNTHESIS BI SCREENING MAMMOGRAPHY BI 2-VIEW BREAST INC Earl Brandon MD [address] [place] [address] [facility] [address] [place] [address] Referral ID Status Reason Start Date Expiration Date Visits Requested Visits Authorized [id number] Pending Review Auto-Generat ed Referral 2 2023 1 1 [facility] for referral (narrative)* Diagnostic Procedure Only (Routine) - New Request Specialty Diagnoses / Procedures Referred By Sarah sun Referred To Contact [facility] Diagnoses Screening mammogram for breast cancer Procedures HAIR SCREENING W CAROL SCREENING DIGITAL BREAST TOMOSYNTHESIS BI SCREENING MAMMOGRAPHY BI 2-VIEW BREAST INC Earl Brandon MD [address] [place] [address] [facility] [address] [place] [address] Referral ID Status Reason Start Date Expiration Date Visits Requested Visits Authorized [id number] New Request Auto-Generat ed Referral 4 11/05/2025 1 1 [facility] for referral (narrative)* Outpatient Procedure (Routine) - Authorized Specialty Diagnoses / Procedures Referred By Sarah sun [facility] Diagnoses Bilateral carotid artery stenosis Procedures US CAROTID ARTERIES FILIPE VAS LAB DUPLEX SCAN EXTRACRANIAL ART COMPL BI STUDY Earl Romero MD [address] [place] [address] [facility] [address] [place] [id number] Referral ID Status Reason Start Date Expiration Date Visits Requested Visits Authorized [id number] Authorized Auto-Generat ed Referral 4 11/06/2025 1 1 [facility] Chief Complaint and Reason for Visit Chief Complaint SCREENING Chief Complaint SCREENING Advance Directives No Advanced Directives Records Found Advance Directive Response Recorded Date/ Time Advance Directives No October 24, 2016 2:40pm Living Will No September 25 9:20pm Power of Hog Sticker Yes September 25, 2021 9:20pm Health Concerns Infection Onset Date Last Indicated Resolved Time Influenza 11/07/2023 11/07/2023 Summary Purpose Family History No Family History Records FoundNo Family History Records Found Additional Source Comments Source Comments (unrecognize d section and content) In the event this informatio n is protected by the Federal Confidentiality of Alcohol and Drug Abuse Patient Records regulations: The Federal rules restrict any use of the information to criminally investigate or prosecute any alcohol or drug abuse patient.[facility] the event this information is protected by the Federal Confidentiality of Alcohol and Drug Abuse Patient Records regulations: The Federal rules restrict any use of the information to criminally investigate or prosecute any alcohol or drug abuse patient.[facility] the event this information is protected by the Federal Confidentiality of Alcohol and Drug Abuse Patient Records regulations: The Federal rules restrict any use of the information to criminally investigate or prosecute any alcohol or drug abuse patient.[facility] the event this information is protected by the Federal Confidentiality of Alcohol and Drug Abuse Patient Records regulations: The Federal rules restrict any use of the information to criminally investigate or prosecute any alcohol or drug abuse patient.[facility] the event this information is protected by the Federal Confidentiality of Alcohol and Drug Abuse Patient Records regulations: The Federal rules restrict any use of the information to criminally investigate or prosecute any alcohol or drug abuse patient.[facility] the event this information is protected by the Federal Confidentiality of Alcohol and Drug Abuse Patient Records regulations: The Federal rules restrict any use of the information to criminally investigate or prosecute any alcohol or drug abuse patient.[facility] the event this information is protected by the Federal Confidentiality of Alcohol and Drug Abuse Patient Records regulations: The Federal rules restrict any use of the information to criminally investigate or prosecute any alcohol or drug abuse patient.[facility] the event this information is protected by the Federal Confidentiality of Alcohol and Drug Abuse Patient Records regulations: The Federal rules restrict any use of the information to criminally investigate or prosecute any alcohol or drug abuse patient.[facility] the event this information is protected by the Federal Confidentiality of Alcohol and Drug Abuse Patient Records regulations: The Federal rules restrict any use of the information to criminally investigate or prosecute any alcohol or drug abuse patient.[facility] the event this information is protected by the Federal Confidentiality of Alcohol and Drug Abuse Patient Records regulations: The Federal rules restrict any use of the information to criminally investigate or prosecute any alcohol or drug abuse patient.[facility] the event this information is protected by the Federal Confidentiality of Alcohol and Drug Abuse Patient Records regulations: The Federal rules restrict any use of the information to criminally investigate or prosecute any alcohol or drug abuse patient.[facility] the event this information is protected by the Federal Confidentiality of Alcohol and Drug Abuse Patient Records regulations: The Federal rules restrict any use of the information to criminally investigate or prosecute any alcohol or drug abuse patient.[facility] the event this information is protected by the Federal Confidentiality of Alcohol and Drug Abuse Patient Records regulations: The Federal rules restrict any use of the information to criminally investigate or prosecute any alcohol or drug abuse patient.[facility] the event this information is protected by the Federal Confidentiality of Alcohol and Drug Abuse Patient Records regulations: The Federal rules restrict any use of the information to criminally investigate or prosecute any alcohol or drug abuse patient.[facility] the event this information is protected by the Federal Confidentiality of Alcohol and Drug Abuse Patient Records regulations: The Federal rules restrict any use of the information to criminally investigate or prosecute any alcohol or drug abuse patient.[facility] Center[facility] the event this information is protected by the Federal Confidentiality of Alcohol and Drug Abuse Patient Records regulations: The Federal rules restrict any use of the information to criminally investigate or prosecute any alcohol or drug abuse patient.[facility] Center[facility] the event this information is protected by the Federal Confidentiality of Alcohol and Drug Abuse Patient Records regulations: The Federal rules restrict any use of the information to criminally investigate or prosecute any alcohol or drug abuse patient.[facility] Center[facility] the event this information is protected by the Federal Confidentiality of Alcohol and Drug Abuse Patient Records regulations: The Federal rules restrict any use of the information to criminally investigate or prosecute any alcohol or drug abuse patient.[facility] Center[facility] the event this information is protected by the Federal Confidentiality of Alcohol and Drug Abuse Patient Records regulations: The Federal rules restrict any use of the information to criminally investigate or prosecute any alcohol or drug abuse patient.[facility] Center[facility] the event this information is protected by the Federal Confidentiality of Alcohol and Drug Abuse Patient Records regulations: The Federal rules restrict any use of the information to criminally investigate or prosecute any alcohol or drug abuse patient.[facility] Center[facility] the event this information is protected by the Federal Confidentiality of Alcohol and Drug Abuse Patient Records regulations: The Federal rules restrict any use of the information to criminally investigate or prosecute any alcohol or drug abuse patient.[facility] Center[facility] the event this information is protected by the Federal Confidentiality of Alcohol and Drug Abuse Patient Records regulations: The Federal rules restrict any use of the information to criminally investigate or prosecute any alcohol or drug abuse patient.[facility] the event this information is protected by the Federal Confidentiality of Alcohol and Drug Abuse Patient Records regulations: The Federal rules restrict any use of the information to criminally investigate or prosecute any alcohol or drug abuse patient.[facility] the event this information is protected by the Federal Confidentiality of Alcohol and Drug Abuse Patient Records regulations: The Federal rules restrict any use of the information to criminally investigate or prosecute any alcohol or drug abuse patient.[facility] Center[facility] the event this information is protected by the Federal Confidentiality of Alcohol and Drug Abuse Patient Records regulations: The Federal rules restrict any use of the information to criminally investigate or prosecute any alcohol or drug abuse patient.[facility] Center[facility] the event this information is protected by the Federal Confidentiality of Alcohol and Drug Abuse Patient Records regulations: The Federal rules restrict any use of the information to criminally investigate or prosecute any alcohol or drug abuse patient.[facility] the event this information is protected by the Federal Confidentiality of Alcohol and Drug Abuse Patient Records regulations: The Federal rules restrict any use of the information to criminally investigate or prosecute any alcohol or drug abuse patient.[facility] the event this information is protected by the Federal Confidentiality of Alcohol and Drug Abuse Patient Records regulations: The Federal rules restrict any use of the information to criminally investigate or prosecute any alcohol or drug abuse patient.[facility] the event this information is protected by the Federal Confidentiality of Alcohol and Drug Abuse Patient Records regulations: The Federal rules restrict any use of the information to criminally investigate or prosecute any alcohol or drug abuse patient.[facility] Center[facility] the event this information is protected by the Federal Confidentiality of Alcohol and Drug Abuse Patient Records regulations: The Federal rules restrict any use of the information to criminally investigate or prosecute any alcohol or drug abuse patient.[facility] the event this information is protected by the Federal Confidentiality of Alcohol and Drug Abuse Patient Records regulations: The Federal rules restrict any use of the information to criminally investigate or prosecute any alcohol or drug abuse patient.[facility] the event this information is protected by the Federal Confidentiality of Alcohol and Drug Abuse Patient Records regulations: The Federal rules restrict any use of the information to criminally investigate or prosecute any alcohol or drug abuse patient.[facility] the event this information is protected by the Federal Confidentiality of Alcohol and Drug Abuse Patient Records regulations: The Federal rules restrict any use of the information to criminally investigate or prosecute any alcohol or drug abuse patient.[facility] CenterIn the event this information is protected by the Federal Confidentiality of Alcohol and Drug Abuse Patient Records regulations: The Federal rules restrict any use of the information to criminally investigate or prosecute any alcohol or drug abuse patient.[facility] CenterIn the event this information is protected by the Federal Confidentiality of Alcohol and Drug Abuse Patient Records regulations: The Federal rules restrict any use of the information to criminally investigate or prosecute any alcohol or drug abuse patient.[facility] CenterIn the event this information is protected by the Federal Confidentiality of Alcohol and Drug Abuse Patient Records regulations: The Federal rules restrict any use of the information to criminally investigate or prosecute any alcohol or drug abuse patient.[facility] CenterIn the event this information is protected by the Federal Confidentiality of Alcohol and Drug Abuse Patient Records regulations: The Federal rules restrict any use of the information to criminally investigate or prosecute any alcohol or drug abuse patient.[facility] CenterIn the event this information is protected by the Federal Confidentiality of Alcohol and Drug Abuse Patient Records regulations: The Federal rules restrict any use of the information to criminally investigate or prosecute any alcohol or drug abuse patient.[facility] CenterIn the event this information is protected by the Federal Confidentiality of Alcohol and Drug Abuse Patient Records regulations: The Federal rules restrict any use of the information to criminally investigate or prosecute any alcohol or drug abuse patient.[facility] CenterIn the event this information is protected by the Federal Confidentiality of Alcohol and Drug Abuse Patient Records regulations: The Federal rules restrict any use of the information to criminally investigate or prosecute any alcohol or drug abuse patient.[facility] CenterIn the event this information is protected by the Federal Confidentiality of Alcohol and Drug Abuse Patient Records regulations: The Federal rules restrict any use of the information to criminally investigate or prosecute any alcohol or drug abuse patient.[facility] Reason for Visit (unrecogniz ed section and content) Reason Comments Results Reason Onset Date Comments Refill Request 04/12/2022 Reason Comments Orders Reason Comments sinus congestion Reason Comments Blood Pressure Check Reason Comments Blood Pressure Check Reason Comments Refill Request Reason Comments Patient Question Reason Comments 6 Month Exam Reason Comments Patient Update Reason Comments Results ;r Reason Onset Date Comments Refill Request 01/10/2024 Reason Comments Lab Orders Reason Onset Date Comments Refill Request 04/16/2024 Reason Comments Mass Right side groin. Do es spend a lot of time outside. Noticed yesterday. Not painful. Reason Comments Cellulitis Follow up Reason Comments Dizziness Was sick about a wee k ago with nausea and vomiting and diarrhea. Reason Comments Future Appointment Reason Comments Refill Request One touch ultra Reason Comments Requesting testing Reason Onset Date Comments Results 12/31/2024 Reason Onset Date Comments Refill Request 01/09/2025 Reason Onset Date Comments Refill Request 01/20/2025 Reason Comments New Patient Labial swelling Reason Comments Medicare Wellness Exam Reason Comments Headache Care Teams (unrecognized sec tion and content) Hoist Cylinder Loader Relationship Specialty Start Date End Date Earl Romero MD [address] [place] [address] PCP - General Family Practice 04/06/21 Hoist Cylinder Loader Relationship Specialty Start Date End Date Earl Romero MD [address] [place] [address] PCP - General Family Practice 04/06/21 Hoist Cylinder Loader Relationship Specialty Start Date End Date Earl Romero MD [address] [place] [address] PCP - General Family Medicine 04/06/21 Hoist Cylinder Loader Relationship Specialty Start Date End Date Earl Romero MD [address] [place] [address] PCP - General Family Medicine 04/06/21 Hoist Cylinder Loader Relationship Specialty Start Date End Date Earl Romero MD [address] [place] [address] PCP - General Family Medicine 04/06/21 Hoist Cylinder Loader Relationship Specialty Start Date End Date Earl Romero MD [address] [place] [address] PCP - General Family Medicine 04/06/21 Hoist Cylinder Loader Relationship Specialty Start Date End Date Earl Romero MD [address] [place] [address] PCP - General Family Medicine 04/06/21 Hoist Cylinder Loader Relationship Specialty Start Date End Date Earl Romero MD [address] [place] [address] PCP - General Family Medicine 04/06/21 Hoist Cylinder Loader Relationship Specialty Start Date End Date Earl Romero MD [address] [place] [address] PCP - General Family Medicine 04/06/21 Hoist Cylinder Loader Relationship Specialty Start Date End Date Earl Romero MD [address] [place] [address] PCP - General Family Medicine 04/06/21 Hoist Cylinder Loader Relationship Specialty Start Date End Date Earl Romero MD [address] [place] [address] PCP - General Family Medicine 04/06/21 Hoist Cylinder Loader Relationship Specialty Start Date End Date Earl Romero MD [address] [facility] [place] [address] PCP - General Family Medicine 04/06/21 Hoist Cylinder Loader Relationship Specialty Start Date End Date Earl Romero MD [address] [place] [address] PCP - General Family Medicine 04/06/21 Team Status: Active Member Role Status Dates Dr. Manny Clark III, MD Family Provider Active Dr. Earl Romero MD Primary Care Provider Active Team Status: Inactive Member Role Status Dates Dr. Earl Romero MD Primary Care Provi brianne, Attending Provider, Referring Provider Active Hoist Cylinder Loader Relationship Specialty Start Date End Date Earl Romero MD [address] [place] [address] PCP - General Family Medicine 04/06/21 Hoist Cylinder Loader Relationship Specialty Start Date End Date Earl Romero MD [address] [place] [address] PCP - General Family Medicine 04/06/21 Hoist Cylinder Loader Relationship Specialty Start Date End Date Earl Romero MD [address] [place] [address] PCP - General Family Medicine 04/06/21 Hoist Cylinder Loader Relationship Specialty Start Date End Date Earl Romero MD [address] [place] [address] PCP - General Family Medicine 04/06/21 Hoist Cylinder Loader Relationship Specialty Start Date End Date Earl Romero MD [address] [place] [address] PCP - General Family Medicine 04/06/21 Hoist Cylinder Loader Relationship Specialty Start Date End Date Earl Roemro MD [address] [place] [address] PCP - General Family Medicine 04/06/21 Hoist Cylinder Loader Relationship Specialty Start Date End Date Earl Romero MD [address] [place] [address] PCP - General Family Medicine 04/06/21 Hoist Cylinder Loader Relationship Specialty Start Date End Date Earl Romero MD [address] [place] [address] PCP - General Family Medicine 04/06/21 Hoist Cylinder Loader Relationship Specialty Start Date End Date Earl Romero MD [address] [place] [address] PCP - General Family Medicine 04/06/21 Hoist Cylinder Loader Relationship Specialty Start Date End Date Earl Romero MD [address] [place] [address] PCP - General Family Medicine 04/06/21 Raina Chacon APRN.JEWELRY INSPECTOR [address] [place] [address] Store Assistant Family Medicine 10/27/24 Kaya Conte APRN.JEWELRY INSPECTOR [address] [place] [address] Store Assistant Family Medicine 10/27/24 Hoist Cylinder Loader Relationship Specialty Start Date End Date Earl Romero MD [address] [place] [address] PCP - General Family Medicine 04/06/21 Raina Chacon APRN.JEWELRY INSPECTOR [address] [place] [address] Store Assistant Family Medicine 10/27/24 Kaya Conte JOURNEYMAN OPERATOR ASSISTANT.JEWELRY INSPECTOR [address] [place] [address] Store Assistant Family Medicine 10/27/24 Hoist Cylinder Loader Relationship Specialty Start Date End Date Earl Romero MD [address] [place] [address] PCP - General Family Medicine 04/06/21 Raina Chacon JOURNEYMAN OPERATOR ASSISTANT.JEWELRY INSPECTOR [address] [place], [place] [id number] [facility] 10/27/24 Kaya Conte APRN.JEWELRY INSPECTOR [address] [place], [place] [id number] [facility] 10/27/24 Hoist Cylinder Loader Relationship Specialty Start Date End Date Earl Romero MD [address] [place], [place] [id number] PCP - General Family Medicine 04/06/21 Raina Chacon APRN.JEWELRY INSPECTOR [address] [place], [place] [id number] [facility] 10/27/24 Kaya Conte JOURNEYMAN OPERATOR ASSISTANT.JEWELRY INSPECTOR [address] [place], [place] [id number] [facility] 10/27/24 Hoist Cylinder Loader Relationship Specialty Start Date End Date Earl Romero MD [address] [place], [place] [id number] PCP - General Family Medicine 04/06/21 Raina Chacon, JOURNEYMAN OPERATOR ASSISTANT.JEWELRY INSPECTOR [address] [place], [place] [phone] [facility] 10/27/24 Kaya Conte JOURNEYMAN OPERATOR ASSISTANT.JEWELRY INSPECTOR [address] [place], [place] [phone] [facility] 10/27/24 Goals (unrecognized section and content) Goals may be documented in a n alternate sectionGoals may be documented in an alternate section INFORMATION SOURCE (unrecogn ized section and content) DATE CREATED AUTHOR 11/30/2024 [facility] DATE CREATED AUTHOR AUTHOR'S ERINN KUMAR 09/25/2025 [facility] FOR RECORDS PERTAINING TO PATIENTS WHO ARE OR HAVE BEEN ENROLLED IN A CHEMICAL DEPENDENCY/SUBSTANCEABUSE PROGRAM, SOME INFORMATION MAY BE OMITTED. This clinical summary was aggregated from multiple sources. Caution should be exercised in using it in the provision of clinical care. This summary normalizes information from multiple sources, and as a consequence, information in this document may materially change the coding, format and clinical context of patient data. In addition, data may be omitted in some cases. CLINICAL DECISIONS SHOULD BE BASED ON THE PRIMARY CLINICAL RECORDS. [employer] [address] [employer] [facility]. provides no warranty or guarantee of the accuracy or completeness of information in this document.
== END | disposition home or self-care (01) ==
LOC: OPBI 13:36
PROVIDERS: PCP Family Medicine; Referring Provider Family Medicine; Visit Provider Family Medicine
DX: Z12.31 Encounter for screening mammogram for malignant neoplasm of breast (principal); Z80.3 Family history of malignant neoplasm of breast
CPT/HCPCS: 77063; 77067